=== PATIENT | male | born 1955 | race Caucasian/White ===

== ENCOUNTER 2021-07-19 13:27 | Inpatient (IN) | payer MEDICARE, OTHER ==
[~2021-07-19] VITALS: Ht 170.2 cm; Wt 81.7 kg
[2021-07-19 14:33] LABS: BASOPHILS ABSOLUTE AUTO 0.03 K/mm3 (0.00-0.23); BASOPHILS PERCENT AUTO 0 % (0-2); EOSINOPHILS ABSOLUTE AUTO 0.07 K/mm3 (0.00-0.68); EOSINOPHILS PERCENT AUTO 1 % (0-6); Hematocrit 43.7 % (37.0-53.0); Hemoglobin 15.1 g/dL (13.5-17.5); IMMATURE GRAN ABSOLUTE AUTO 0.05 K/mm3 (0.00-0.10); IMMATURE GRAN PERCENT AUTO 0 % (0-1); LYMPHOCYTES ABSOLUTE AUTO 1.26 K/mm3 (0.84-5.20); LYMPHOCYTES PERCENT AUTO 9 % (21-46); MONOCYTES ABSOLUTE AUTO 1.29 K/mm3 (0.16-1.47); MONOCYTES PERCENT AUTO 9 % (4-13); Mean Corpuscular HGB 30.1 pg (26.0-34.0); Mean Corpuscular HGB Conc 34.6 g/dL (31.5-36.5); Mean Corpuscular Volume 87 fL (80-100); Mean Platelet Volume 9.7 fL (9.1-12.4); NEUTROPHILS PERCENT AUTO 81 % (41-73); Platelet Count 303 K/mm3 (150-400); RDW Coefficient Variation 13.7 % (11.7-14.2); RDW Standard Deviation 43.9 fL (35.1-46.3); Red Blood Cell Count 5.01 M/mm3 (4.30-5.90)
[2021-07-19] MEDS ORDERED: AMLO10 PO (14:52)
[2021-07-19] MEDS ORDERED: Budeprion Xl300 MG PO (14:53)
[2021-07-19] MEDS ORDERED: FOLI1 PO (14:54)
[2021-07-19 14:55] LABS: Albumin, Blood 4.8 g/dL (3.4-5.0); Albumin/Globulin Ratio 1.3 (0.8-1.8); Bilirubin, Total 0.8 mg/dL (0.1-1.0); Bun/Creatinine Ratio 11.2 (12.0-20.0); Creatinine, Blood 1.61 mg/dL (0.60-1.20); Globulin, Blood 3.8 g/dL (2.2-4.0); Potassium, Blood 4.2 mmol/L (3.5-5.5); Total Protein, Blood 8.6 g/dL (6.4-8.2)
[2021-07-19] MEDS ORDERED: MAGNESIUM OXID400 M1 PO (14:55)
[2021-07-19] MEDS ORDERED: Prinivil10 MG PO (14:55)
[2021-07-19] MEDS ORDERED: OMEP20ER PO (14:56)
[2021-07-19] MEDS ORDERED: Toprol Xl50 MG PO (14:56)
[2021-07-19] MEDS ORDERED: Vitamin B-121000 MCG PO (14:57)
[2021-07-19] MEDS ORDERED: VITAMIN B-1100 M1 PO (14:57)
[2021-07-19] MEDS ORDERED: GABA300 PO (14:57)
[2021-07-19] MEDS ORDERED: CREON DR 12,001 EACH PO (14:59)
[2021-07-19] MEDS ORDERED: ALPR.5 PO (15:00)
[2021-07-19] MEDS ORDERED: Acetaminophen325 M1 PO (15:00)
[2021-07-19] MEDS ORDERED: ONDA4 PO (15:01)
[2021-07-19 16:58] LABS: CHOL/HDL RATIO 4.2; Cholesterol 204 mg/dL (50-200); HDL Cholesterol 49 mg/dL (>39); LDL/HDL RATIO 2.5; Low Density Lipoprotein Chol 123 mg/dL (0-110); Triglycerides 162 mg/dL (30-160); Very Low Density Lipoprot Chol 32 mg/dL (6-32)
--- NOTE | 2021-07-19 18:11 | NUR ---
ADMIT TO MEDICAL FLOOR 66YR M ADMITTED TO MEDICAL FLOOR AT 1730 WITH PANCREATITIS. REPORT RECIEVED FROM UZAIR MANCUSO IN ED. PT ARRIVED VIA GURNEY AND TRANSFERRED IND TO BED. HE IS A&O AND ABLE TO ANSWER QUESTIONS APPROPRIATELY. ADMISSION SCREENING PARTIALLY COMPLETED DUE TO PT'S DISCOMFORT R/T NAUSEA AND WRETCHING. PT MEDICATED WITH 4MG IV ZOFRAN AND 25MG FENTANYL. PT ORIENTED TO ROOM, CALL LIGHT SYSTEM AND PHONE. ASSISTED PT WITH CALLING HIS SISTER TO UPDATE ABOUT HOSPITAL ADMISSION. PT DID NOT GET ANY RELIEF AFTER MEDICATION. CALL OUT TO MD FOR FURTHER ORDERS.
[2021-07-19 19:30] LABS: SARS-Cov-2 (COVID-19) PCR, MMC NEGATIVE (NEGATIVE)
--- NOTE | 2021-07-20 04:14 | NUR ---
SUMMARY: PT A/OX3-4 BUT IS MILDLY FORGETFULL W/BED ALARM ON FOR POSSIBLE FALL RISK. HE'S ANSWERED SPECIFIC Q'S APPROPRIATELY BUT OCCASSIONAL CONFUSED SPEECH OBSERVED, REMINDERS PROVIDED PRN. PT RECIEVED ZOFRAN, FENTANYL AND ATIVAN PRN ON DAY SHIFT BUT HASN'T REQUIRED ANY PRN MEDS SINCE. HE'S DENIED NAUSEA, ABDO PAIN, ANXIETY AND AGGITATION AND NO FURTHER N/V OR RETCHING OBSERVED. CIWAS ARE 1 BUT ONLY FOR SLIGHT CONFUSION TO DATE, LIKELY ATIVAN INDUCED. HE'S BEEN NPO EXCEPT MEDS/ICE AND REPORTS FEELING "SO MUCH BETTER". HE'S BEEN PLEASANT AND COOPERATIVE W/CARE AND SLEPT MAJORITY OF SHIFT. NS INFUSES AT 150 ML/HR AND CAN BE SL AFTER THIS BAG. NO ACUTE CHANGES, VSS/AFEBRILE.
[2021-07-20 04:50] LABS: BASOPHILS ABSOLUTE AUTO 0.01 K/mm3 (0.00-0.23); BASOPHILS PERCENT AUTO 0 % (0-2); EOSINOPHILS ABSOLUTE AUTO 0.12 K/mm3 (0.00-0.68); EOSINOPHILS PERCENT AUTO 2 % (0-6); Hematocrit 37.4 % (37.0-53.0); Hemoglobin 12.5 g/dL (13.5-17.5); IMMATURE GRAN ABSOLUTE AUTO 0.02 K/mm3 (0.00-0.10); IMMATURE GRAN PERCENT AUTO 0 % (0-1); LYMPHOCYTES PERCENT AUTO 22 % (21-46); MONOCYTES ABSOLUTE AUTO 1.21 K/mm3 (0.16-1.47); MONOCYTES PERCENT AUTO 17 % (4-13); Mean Corpuscular HGB 30.2 pg (26.0-34.0); Mean Corpuscular HGB Conc 33.4 g/dL (31.5-36.5); Mean Corpuscular Volume 90 fL (80-100); Mean Platelet Volume 9.7 fL (9.1-12.4); NEUTROPHILS ABSOLUTE AUTO 4.36 K/mm3 (1.96-9.15); NEUTROPHILS PERCENT AUTO 60 % (41-73); Platelet Count 168 K/mm3 (150-400); Red Blood Cell Count 4.14 M/mm3 (4.30-5.90); White Blood Cell Count 7.32 K/mm3 (4.00-11.30)
[2021-07-20 05:15] LABS: Alanine Aminotransfer (ALT/SGP 20 U/L (12-78); Albumin, Blood 3.7 g/dL (3.4-5.0); Albumin/Globulin Ratio 1.2 (0.8-1.8); Alk Phos 80 U/L (50-136); Anion Gap 3 mmol/L (6-16); Aspartate Aminotrans (AST/SGOT 17 U/L (12-37); Bilirubin, Total 0.4 mg/dL (0.1-1.0); Blood Urea Nitrogen 19 mg/dL (8-24); CO2, Blood 28 mmol/L (21-32); Chloride, Blood 110 mmol/L (98-108); Creatinine, Blood 1.12 mg/dL (0.60-1.20); Globulin, Blood 3.2 g/dL (2.2-4.0); Glomerular Filtration Rate >60 (60-); Glucose, Blood 95 mg/dL (70-99); Potassium, Blood 4.4 mmol/L (3.5-5.5); Sodium, Blood 141 mmol/L (136-145); Total Protein, Blood 6.9 g/dL (6.4-8.2)
[2021-07-20 05:16] LABS: Calcium, Blood 8.3 mg/dL (8.5-10.1)
--- NOTE | 2021-07-20 19:32 | NUR ---
SHIFT SUMMARY: NO ACUTE EVENTS TO REPORT THIS SHIFT. PT A&O; CALM AND COOPERATIVE WITH CARE. DIET ADVANCED TO FULL LIQUID @ DINNER; PT TOLERATING WELL. CIWA Q4; ASSESSED AT 1 T/O SHIFT. REPORT GIVEN TO ONCOMING RN.
--- NOTE | 2021-07-21 04:44 | NUR ---
SUMMARY NO NEW ISSUES NOTED. PT HAS RESTED/ SLEPT T/O SHIFT. PT CURRENTLY SLEEPING IN NO DISTRESS. CIWA UNREMARKABLE. CALL LIGHT IN REACH.
[2021-07-21] MEDS ORDERED: AMLO10 PO (09:46)
--- NOTE | 2021-07-21 10:33 | NUR ---
PATIENT DISCHARGE: PATIENT DISCHARGED TO HOME THIS SHIFT. MEDICATION RECONCILIATION COMPLETED; MED LIST FAXED TO [facility]. DISCHARGE EDUCATION COMPLETED WITH PATIENT. PATIENT TRANSPORTED TO EXIT BY [facility] STA[facility] WITH WHEELCHAIR AT 1032. PATIENT DEPARTED [facility] VIA PRIVATE AUTO.
== END 2021-07-21 10:32 | disposition home or self-care (01) | DRG 439 ==
LOC: ER 13:27 → MEDS 15:58
PROVIDERS: Family Medicine; ADMIT Hospitalist
PROC: HZ2ZZZZ Detoxification Services for Substance Abuse Treatment (ICD-10-PCS; principal; 2021-07-19)
DX: K85.20 Alcohol induced acute pancreatitis without necrosis or infection (principal); N17.9 Acute kidney failure, unspecified; Z20.822 Contact with and (suspected) exposure to COVID-19; I10 Essential (primary) hypertension; F17.210 Nicotine dependence, cigarettes, uncomplicated; K21.9 Gastro-esophageal reflux disease without esophagitis; F41.9 Anxiety disorder, unspecified; F10.20 Alcohol dependence, uncomplicated; Z71.41 Alcohol abuse counseling and surveillance of alcoholic; Z79.899 Other long term (current) drug therapy
CPT/HCPCS: 36415; 74177; 80053; 80061; 83615; 83690; 84145; 85025; 93005; 93010; 94762; 96365-59; 96375; 99285-25; A9270; G0480; J1644; J1885; J2060; J2405; J2560; J3010; J7030; J7120; Q9967; U0004

== ENCOUNTER 2021-08-23 20:45 | Inpatient (IN) | payer MEDICARE, OTHER ==
[~2021-08-23] VITALS: Ht 170.2 cm; Wt 78.5 kg
[~2021-08-23 20:45] MED LIST: ALPR.5 PO; AMLO10 PO; Acetaminophen325 M1 PO; Budeprion Xl300 MG PO; CREON DR 12,001 EACH PO; FOLI1 PO; GABA300 PO; MAGNESIUM OXID400 M1 PO; OMEP20ER PO; ONDA4 PO; ONDA4ODT MM; PROM25 PO; Prinivil10 MG PO; Toprol Xl50 MG PO; VITAMIN B-1100 M1 PO; Vitamin B-121000 MCG PO
[2021-08-23 21:39] LABS: BASOPHILS ABSOLUTE AUTO 0.01 K/mm3 (0.00-0.23); BASOPHILS PERCENT AUTO 0 % (0-2); EOSINOPHILS ABSOLUTE AUTO 0.14 K/mm3 (0.00-0.68); EOSINOPHILS PERCENT AUTO 1 % (0-6); Hematocrit 39.4 % (37.0-53.0); Hemoglobin 13.6 g/dL (13.5-17.5); IMMATURE GRAN ABSOLUTE AUTO 0.04 K/mm3 (0.00-0.10); IMMATURE GRAN PERCENT AUTO 0 % (0-1); LYMPHOCYTES ABSOLUTE AUTO 1.43 K/mm3 (0.84-5.20); LYMPHOCYTES PERCENT AUTO 12 % (21-46); MONOCYTES ABSOLUTE AUTO 1.91 K/mm3 (0.16-1.47); MONOCYTES PERCENT AUTO 17 % (4-13); Mean Corpuscular HGB 30.4 pg (26.0-34.0); Mean Corpuscular HGB Conc 34.5 g/dL (31.5-36.5); Mean Corpuscular Volume 88 fL (80-100); Mean Platelet Volume 9.8 fL (9.1-12.4); NEUTROPHILS ABSOLUTE AUTO 8.08 K/mm3 (1.96-9.15); NEUTROPHILS PERCENT AUTO 70 % (41-73); Platelet Count 204 K/mm3 (150-400); RDW Coefficient Variation 13.2 % (11.7-14.2); RDW Standard Deviation 42.8 fL (35.1-46.3); Red Blood Cell Count 4.47 M/mm3 (4.30-5.90); White Blood Cell Count 11.61 K/mm3 (4.00-11.30)
[2021-08-23 22:00] LABS: Alanine Aminotransfer (ALT/SGP 33 U/L (12-78); Albumin, Blood 3.8 g/dL (3.4-5.0); Alk Phos 107 U/L (50-136); Anion Gap 8 mmol/L (6-16); Aspartate Aminotrans (AST/SGOT 26 U/L (12-37); Bilirubin, Total 0.8 mg/dL (0.1-1.0); Blood Urea Nitrogen 11 mg/dL (8-24); Bun/Creatinine Ratio 14.4 (12.0-20.0); CO2, Blood 24 mmol/L (21-32); Calcium, Blood 9.4 mg/dL (8.5-10.1); Chloride, Blood 103 mmol/L (98-108); Creatinine, Blood 0.76 mg/dL (0.60-1.20); Ethanol (Alcohol), Blood, Med <3 mg/dL; Globulin, Blood 3.9 g/dL (2.2-4.0); Glomerular Filtration Rate >60 (60-); Glucose, Blood 110 mg/dL (70-99); Sodium, Blood 135 mmol/L (136-145); Total Protein, Blood 7.7 g/dL (6.4-8.2)
--- NOTE | 2021-08-24 01:41 | NUR ---
ADMISSION NOTE: RECEIVED PT FROM ER AAO. HE C/O OF SEVERE ABDOMINAL PAIN. ABD SOFT NON-TENDER. ORIENTED PT TO CALL LIGHT AND SURROUNDINGS. MEDS GIVEN PER MAR. MEDICATED FOR PAIN WITH GOOD EFFECT. IVF PATENTLY INFUSING. CALL LIGHT WITHIN REACH.
--- NOTE | 2021-08-24 03:33 | NUR ---
PT SLEPT WITHOUT DISTRESS. HE DENIES PAIN. IVF INFUSING. CALL LIGHT WITHIN REACH. SAFETY MEASURES MAINTAINED. NO EVENT DURING THE NIGHT.
--- NOTE | 2021-08-24 07:40 | NUR ---
DISCHARGE SUMMARY PATIENT LEFT AMA. RISKS AND BENEFITS OF LEAVING AMA DISCUSSED WITH PATIENT. PATIENT STATES HE IS STILL GOING TO LEAVE. DR CONTACTED AND IN THE ROOM TO DISCUSS PATIENT'S CURRENT SITUATION. PATIENT CONTINUES TO STATE HE IS GOING TO LEAVE. IV REMOVED PRIOR TO DISCHARGE. PATIENT MAKING GRUNTING SOUNDS DUE TO PAIN HE AMBULATES THROUGH THE ETIENNE. PATIENT ESCORTED TO THE PHARMACY TO POST HOLE DIGGING MACHINE OPERATOR MEDICATIONS THAT WERE BEING HELD, THEN TO THE HOSPITAL ENTRANCE.
== END 2021-08-24 07:35 | disposition left against medical advice (07) | DRG 439 ==
LOC: ER 20:45 → MEDS 08-24 00:09
PROVIDERS: Emergency Medicine; ADMIT Internal Medicine
DX: K85.20 Alcohol induced acute pancreatitis without necrosis or infection (principal); E87.1 Hypo-osmolality and hyponatremia; I10 Essential (primary) hypertension; K21.9 Gastro-esophageal reflux disease without esophagitis; F32.9 Major depressive disorder, single episode, unspecified; F41.9 Anxiety disorder, unspecified; Z88.8 Allergy status to other drugs, medicaments and biological substances; F10.10 Alcohol abuse, uncomplicated; Z23 Encounter for immunization; Z96.651 Presence of right artificial knee joint; Z79.899 Other long term (current) drug therapy; Z90.49 Acquired absence of other specified parts of digestive tract
CPT/HCPCS: 76705; 80053; 83690; 85025; 96374; 96375; 99285-25; G0480; J2270; J2405; J3010; J7030

== ENCOUNTER 2021-09-02 04:36 | Inpatient (IN) | payer MEDICARE, OTHER ==
[~2021-09-02] VITALS: Ht 170.2 cm; Wt 77.1 kg
[2021-09-02 05:19] LABS: BASOPHILS ABSOLUTE AUTO 0.02 K/mm3 (0.00-0.23); BASOPHILS PERCENT AUTO 0 % (0-2); EOSINOPHILS ABSOLUTE AUTO 0.18 K/mm3 (0.00-0.68); EOSINOPHILS PERCENT AUTO 2 % (0-6); Hemoglobin 13.9 g/dL (13.5-17.5); IMMATURE GRAN ABSOLUTE AUTO 0.03 K/mm3 (0.00-0.10); IMMATURE GRAN PERCENT AUTO 0 % (0-1); LYMPHOCYTES ABSOLUTE AUTO 1.61 K/mm3 (0.84-5.20); LYMPHOCYTES PERCENT AUTO 15 % (21-46); MONOCYTES ABSOLUTE AUTO 1.73 K/mm3 (0.16-1.47); MONOCYTES PERCENT AUTO 16 % (4-13); Mean Corpuscular HGB 30.2 pg (26.0-34.0); Mean Corpuscular HGB Conc 33.1 g/dL (31.5-36.5); Mean Corpuscular Volume 91 fL (80-100); Mean Platelet Volume 9.7 fL (9.1-12.4); NEUTROPHILS ABSOLUTE AUTO 7.46 K/mm3 (1.96-9.15); NEUTROPHILS PERCENT AUTO 68 % (41-73); Platelet Count 283 K/mm3 (150-400); RDW Coefficient Variation 14.1 % (11.7-14.2); RDW Standard Deviation 47.2 fL (35.1-46.3); Red Blood Cell Count 4.61 M/mm3 (4.30-5.90); White Blood Cell Count 11.03 K/mm3 (4.00-11.30)
[2021-09-02 05:36] LABS: Alanine Aminotransfer (ALT/SGP 322 U/L (12-78); Albumin, Blood 3.8 g/dL (3.4-5.0); Alk Phos 353 U/L (50-136); Anion Gap 5 mmol/L (6-16); Aspartate Aminotrans (AST/SGOT 231 U/L (12-37); Bilirubin, Total 1.6 mg/dL (0.1-1.0); Blood Urea Nitrogen 8 mg/dL (8-24); Bun/Creatinine Ratio 10.4 (12.0-20.0); CO2, Blood 27 mmol/L (21-32); Calcium, Blood 9.8 mg/dL (8.5-10.1); Chloride, Blood 105 mmol/L (98-108); Creatinine, Blood 0.77 mg/dL (0.60-1.20); Globulin, Blood 3.9 g/dL (2.2-4.0); Glomerular Filtration Rate >60 (60-); Glucose, Blood 139 mg/dL (70-99); Potassium, Blood 4.2 mmol/L (3.5-5.5); Sodium, Blood 137 mmol/L (136-145); Total Protein, Blood 7.7 g/dL (6.4-8.2)
[2021-09-02 09:56] LABS: SARS-Cov-2 (COVID-19) PCR, MMC NEGATIVE (NEGATIVE)
--- NOTE | 2021-09-02 18:31 | NUR ---
PT IS ALERT AND ORIENTED X 4. HE DENIES PAIN OR DISCOMFORT SINCE ADMISSION TO FLOOR. HE IS COOPERATIVE. HE IS TOLERATING CLEAR LIQ DIET. NPO AT MIDNIGHT/PT IS AWARE. 20G HL PLACED IN RIGHT FOREARM FOR IV FLUIDS (LR AT 100ML/HR). HE DOES NOT APPEAR TO BE IN ACUTE DISTRESS. HE IS RESTING QUIETLY IN ROOM.
[2021-09-02] MEDS ORDERED: CLON.5 PO (20:29)
[2021-09-02] MEDS ORDERED: Naltrexone HCl50 MG PO (20:29)
[2021-09-03 05:53] LABS: BASOPHILS ABSOLUTE AUTO 0.01 K/mm3 (0.00-0.23); BASOPHILS PERCENT AUTO 0 % (0-2); EOSINOPHILS ABSOLUTE AUTO 0.19 K/mm3 (0.00-0.68); EOSINOPHILS PERCENT AUTO 3 % (0-6); Hematocrit 39.8 % (37.0-53.0); Hemoglobin 13.2 g/dL (13.5-17.5); IMMATURE GRAN ABSOLUTE AUTO 0.02 K/mm3 (0.00-0.10); IMMATURE GRAN PERCENT AUTO 0 % (0-1); LYMPHOCYTES PERCENT AUTO 27 % (21-46); MONOCYTES ABSOLUTE AUTO 1.33 K/mm3 (0.16-1.47); MONOCYTES PERCENT AUTO 19 % (4-13); Mean Corpuscular HGB 29.8 pg (26.0-34.0); Mean Corpuscular HGB Conc 33.2 g/dL (31.5-36.5); Mean Corpuscular Volume 90 fL (80-100); Mean Platelet Volume 10.2 fL (9.1-12.4); NEUTROPHILS ABSOLUTE AUTO 3.67 K/mm3 (1.96-9.15); NEUTROPHILS PERCENT AUTO 52 % (41-73); Platelet Count 222 K/mm3 (150-400); Red Blood Cell Count 4.43 M/mm3 (4.30-5.90); White Blood Cell Count 7.12 K/mm3 (4.00-11.30)
[2021-09-03 06:11] LABS: Alanine Aminotransfer (ALT/SGP 207 U/L (12-78); Albumin, Blood 3.3 g/dL (3.4-5.0); Albumin/Globulin Ratio 0.9 (0.8-1.8); Alk Phos 277 U/L (50-136); Amylase, Blood 56 U/L (25-115); Anion Gap 4 mmol/L (6-16); Aspartate Aminotrans (AST/SGOT 73 U/L (12-37); Bilirubin, Total 0.7 mg/dL (0.1-1.0); Blood Urea Nitrogen 8 mg/dL (8-24); Bun/Creatinine Ratio 11.6 (12.0-20.0); CO2, Blood 25 mmol/L (21-32); Calcium, Blood 9.7 mg/dL (8.5-10.1); Chloride, Blood 105 mmol/L (98-108); Creatinine, Blood 0.69 mg/dL (0.60-1.20); Globulin, Blood 3.7 g/dL (2.2-4.0); Glomerular Filtration Rate >60 (60-); Glucose, Blood 100 mg/dL (70-99); Magnesium, Blood 1.9 mg/dL (1.6-2.4); Phosphorus, Blood 3.3 mg/dL (2.5-4.9); Potassium, Blood 4.3 mmol/L (3.5-5.5); Sodium, Blood 134 mmol/L (136-145)
--- NOTE | 2021-09-03 07:23 | NUR ---
PATIENT IS ALERT AND ORIENTED X4. PATIENT REMAINS NPO AFTER MIDNIGHT. PATIENT DENIES PAIN OR ANY DISCOMFORT. PATIENT'S VITAL SIGNS WNL. PATIENT CONTINUES ON LACTATED RINGER IV. PATIENT DENIES SOB, CHEST PAIN OR ANY ACUTE EVENT. WILL CONTINUE TO MONITOR.
--- NOTE | 2021-09-03 17:20 | NUR ---
66 YOM ADMITTED WITH ACUTE ON CHRONIC PANCREATITIS. PT. SCHEDULED FOR [facility] TOMORROW (DR. BALTAZAR). PT. LIVING ALONE PRIOR TO ADMIT. ABLE TO PERFORM ADLS INDEPENDENTLY. LIVES IN MOTOR HOME WITH 3 STEPS TO ENTRY. FAMILY SUPPORT WITH BROTHER AND SISTER LIVING IN THE AREA. PT. USES [facility]. RECENTLY DISCHARGED FROM [facility] DUE TO BEHAVIOR AND NON-COMPLIANCE. WE WILL CONTINUE TO PROVIDE CARE EMERGENT CARE AND ROUTINE MEDICATION REFILLS FOR 30 DAYS WHILE PT. ESTABLISHES WITH A NEW PCP. ANTICIPATE NEEDS AT TIME OF DISCHARGE TO INCLUDE: F/U WITH DR. BALTAZAR, HOSPITAL F/U WITH [facility], ASSISTANCE WITH LOCATING AN ALTERNATIVE PCP.
--- NOTE | 2021-09-03 18:41 | NUR ---
PT IS ALERT AND ORIENTED X 4. HE DENIES PAIN, NAUSEA, OR DISCOMFORT. HE ATTEMPTED TO LEAVE AMA. HE STATED HE IS JUST LYING HERE WITHOUT EATING AND NO ONE HAS INFORMED HIM IF HE WILL HAVE SURGERY OR NOT. DISCUSSION WITH PT ABOUT BENEFITS OF REMAINING IN HOSP AND ASKED HIM TO ALLOW ME TO SPEAK WITH PHYSICIAN. dR. GASTELUM WAS NOTIFIED AND STATED SURGEON WOULD BE TODAY AND CHOLECYSTECTOMY WAS PLANNED FOR TOMORROW. THIS WAS COMMUNICATED TO THE PT WHO DECIDED TO REMAIN. SURGEON STOPPED BY APPROX 2PM TO SPEAK WITH PT. HE IS TOLERATING CLEAR LIQ DIET. HE IS INDEPENDENT WITH ACTIVITIES. UNEVENTFUL SHIFT. TELE-NSR 'S
--- NOTE | 2021-09-04 04:03 | NUR ---
SUMMARY PT HAD NO ISSUES OR COMPLAINTS. PT HAS BEEN NPO SINCE MIDNIGHT. PT HAS BEEN VOIDING FREQUENTLY DURING THE SHIFT. PT CURRENTLY SLEEPING AND BREATHING EASY. CALL LIGHT IN REACH.
[2021-09-04 05:38] LABS: BASOPHILS ABSOLUTE AUTO 0.01 K/mm3 (0.00-0.23); BASOPHILS PERCENT AUTO 0 % (0-2); EOSINOPHILS ABSOLUTE AUTO 0.21 K/mm3 (0.00-0.68); EOSINOPHILS PERCENT AUTO 3 % (0-6); Hematocrit 40.4 % (37.0-53.0); Hemoglobin 13.3 g/dL (13.5-17.5); IMMATURE GRAN ABSOLUTE AUTO 0.02 K/mm3 (0.00-0.10); IMMATURE GRAN PERCENT AUTO 0 % (0-1); LYMPHOCYTES ABSOLUTE AUTO 1.95 K/mm3 (0.84-5.20); LYMPHOCYTES PERCENT AUTO 28 % (21-46); MONOCYTES ABSOLUTE AUTO 1.21 K/mm3 (0.16-1.47); MONOCYTES PERCENT AUTO 17 % (4-13); Mean Corpuscular HGB 29.8 pg (26.0-34.0); Mean Corpuscular HGB Conc 32.9 g/dL (31.5-36.5); Mean Corpuscular Volume 90 fL (80-100); NEUTROPHILS ABSOLUTE AUTO 3.58 K/mm3 (1.96-9.15); NEUTROPHILS PERCENT AUTO 51 % (41-73); Platelet Count 229 K/mm3 (150-400); RDW Coefficient Variation 13.8 % (11.7-14.2); Red Blood Cell Count 4.47 M/mm3 (4.30-5.90); White Blood Cell Count 6.98 K/mm3 (4.00-11.30)
[2021-09-04 06:13] LABS: Alanine Aminotransfer (ALT/SGP 151 U/L (12-78); Albumin, Blood 3.2 g/dL (3.4-5.0); Albumin/Globulin Ratio 0.9 (0.8-1.8); Alk Phos 235 U/L (50-136); Anion Gap 2 mmol/L (6-16); Aspartate Aminotrans (AST/SGOT 36 U/L (12-37); Bilirubin, Total 0.7 mg/dL (0.1-1.0); Blood Urea Nitrogen 8 mg/dL (8-24); CO2, Blood 27 mmol/L (21-32); Calcium, Blood 9.5 mg/dL (8.5-10.1); Chloride, Blood 106 mmol/L (98-108); Creatinine, Blood 0.73 mg/dL (0.60-1.20); Globulin, Blood 3.6 g/dL (2.2-4.0); Glomerular Filtration Rate >60 (60-); Glucose, Blood 100 mg/dL (70-99); Potassium, Blood 4.2 mmol/L (3.5-5.5); Sodium, Blood 135 mmol/L (136-145); Total Protein, Blood 6.8 g/dL (6.4-8.2)
--- NOTE | 2021-09-04 18:46 | NUR ---
PATIENT IS ALERT AND ORIENTED WITH INTERMITTENT CONFUSION. ON RA. HE HAD A [facility] TODAY. ONCE HE GOT BACK TO MEDICAL FLOOR HE WAS CRYING OUT IN PAIN, MEDICATED PER EMAR. HIS PAIN HAS BEEN TOLERABLE SINCE AND HE HAS BEEN ABLE TO REST. TOLERATED DINNER WELL. WILL CONTINUE TO MONITOR
--- NOTE | 2021-09-05 04:05 | NUR ---
SUMMARY PT PAIN MANAGED WELL. PT HAS BEEN SLEEPING T/OUT SHIFT. PT HAS BEEN GETTING UP TO VOID W/OUT ISSUE. PT CURRENTLY SLEEPING IN NO DISTRESS. CALL LIGHT IN REACH.
[2021-09-05] MEDS ORDERED: MIRALAX17 GM PO (13:45)
--- NOTE | 2021-09-05 16:01 | NUR ---
PT IS A&O, SITTING UP TO EOB AT START OF SHIFT. PT ADMITTED FOR PANCREATITIS, HAVING LAB [facility] YESTERDAY. PT DOING WELL. DR BALTAZAR IN TO SEE PT, CLEARING HIM FOR D/C. DR MCCULLOUGH IN LATER, DISCUSSED PLAN OF CARE. PT WANTING TO GO HOME TODAY. D/C ORDERS PLACED. PT INDEPENDENT IN AND OUT TO [place]. MEDICATED X1 FOR C/O ABD TENDERNESS AT START OF SHIFT. NO FURTHER C/O. D/C INSTRUCTIONS REVIEWED WITH PT; VERBALIZED UNDERSTANDING. MEDS FAXED TO [facility], PER PT REQUEST. PT ASSISTED OUT VIA W/C.
== END 2021-09-05 14:03 | disposition home or self-care (01) | DRG 418 ==
LOC: ER 04:36 → MEDS 08:18 → ER 09:54 → MEDS 10:14
PROVIDERS: Emergency Medicine; Student in an Organized Health Care Education/Training Program; Surgery; ADMIT Hospitalist
PROC: HZ2ZZZZ Detoxification Services for Substance Abuse Treatment (ICD-10-PCS; 2021-09-02)
PROC: BF141ZZ Fluoroscopy of Gallbladder, Bile Ducts and Pancreatic Ducts using Low Osmolar Contrast (ICD-10-PCS; 2021-09-04)
PROC: 0FT44ZZ Resection of Gallbladder, Percutaneous Endoscopic Approach (ICD-10-PCS; principal; 2021-09-04 09:30)
DX: K85.10 Biliary acute pancreatitis without necrosis or infection (principal); K86.3 Pseudocyst of pancreas; F11.20 Opioid dependence, uncomplicated; Z20.822 Contact with and (suspected) exposure to COVID-19; F17.210 Nicotine dependence, cigarettes, uncomplicated; F10.10 Alcohol abuse, uncomplicated; I10 Essential (primary) hypertension; Z96.651 Presence of right artificial knee joint; F32.A Depression, unspecified; F41.9 Anxiety disorder, unspecified; K21.9 Gastro-esophageal reflux disease without esophagitis; G89.4 Chronic pain syndrome; Z71.6 Tobacco abuse counseling; Z71.41 Alcohol abuse counseling and surveillance of alcoholic; Z87.19 Personal history of other diseases of the digestive system; Z88.5 Allergy status to narcotic agent; Z88.8 Allergy status to other drugs, medicaments and biological substances; Z79.899 Other long term (current) drug therapy
CPT/HCPCS: 36415; 74181; 74300; 76705; 80053; 82150; 83690; 83735; 84100; 85025; 85651; 86140; 96374; 99285-25; A9270; C1729; J0690; J1100; J1650; J1790; J2250; J2370; J2405; J2704; J3010; J7120; U0004

== ENCOUNTER 2021-09-10 15:24 | Inpatient (IN) | payer MEDICARE, OTHER ==
[~2021-09-10] VITALS: Ht 177.8 cm; Wt 73.2 kg
[~2021-09-10 15:24] MED LIST changes: +CLON.5 PO; +MIRALAX17 GM PO; +Naltrexone HCl50 MG PO
[2021-09-10 15:59] LABS: BASOPHILS ABSOLUTE AUTO 0.02 K/mm3 (0.00-0.23); BASOPHILS PERCENT AUTO 0 % (0-2); EOSINOPHILS ABSOLUTE AUTO 0.08 K/mm3 (0.00-0.68); EOSINOPHILS PERCENT AUTO 1 % (0-6); Hematocrit 37.8 % (37.0-53.0); Hemoglobin 12.7 g/dL (13.5-17.5); IMMATURE GRAN ABSOLUTE AUTO 0.08 K/mm3 (0.00-0.10); IMMATURE GRAN PERCENT AUTO 1 % (0-1); LYMPHOCYTES ABSOLUTE AUTO 1.07 K/mm3 (0.84-5.20); LYMPHOCYTES PERCENT AUTO 8 % (21-46); MONOCYTES ABSOLUTE AUTO 1.73 K/mm3 (0.16-1.47); MONOCYTES PERCENT AUTO 13 % (4-13); Mean Corpuscular HGB 30.5 pg (26.0-34.0); Mean Corpuscular HGB Conc 33.6 g/dL (31.5-36.5); Mean Corpuscular Volume 91 fL (80-100); Mean Platelet Volume 9.9 fL (9.1-12.4); NEUTROPHILS ABSOLUTE AUTO 10.27 K/mm3 (1.96-9.15); NEUTROPHILS PERCENT AUTO 77 % (41-73); Platelet Count 317 K/mm3 (150-400); RDW Coefficient Variation 13.4 % (11.7-14.2); RDW Standard Deviation 44.2 fL (35.1-46.3); Red Blood Cell Count 4.16 M/mm3 (4.30-5.90); White Blood Cell Count 13.25 K/mm3 (4.00-11.30)
[2021-09-10 16:15] LABS: Alanine Aminotransfer (ALT/SGP 45 U/L (12-78); Albumin, Blood 3.1 g/dL (3.4-5.0); Albumin/Globulin Ratio 0.7 (0.8-1.8); Alk Phos 163 U/L (50-136); Anion Gap 8 mmol/L (6-16); Aspartate Aminotrans (AST/SGOT 23 U/L (12-37); Bilirubin, Total 0.7 mg/dL (0.1-1.0); Blood Urea Nitrogen 9 mg/dL (8-24); Bun/Creatinine Ratio 11.9 (12.0-20.0); CO2, Blood 26 mmol/L (21-32); Calcium, Blood 9.7 mg/dL (8.5-10.1); Chloride, Blood 98 mmol/L (98-108); Creatinine, Blood 0.76 mg/dL (0.60-1.20); Globulin, Blood 4.6 g/dL (2.2-4.0); Glomerular Filtration Rate >60 (60-); Glucose, Blood 110 mg/dL (70-99); Potassium, Blood 4.2 mmol/L (3.5-5.5); Sodium, Blood 132 mmol/L (136-145); Total Protein, Blood 7.7 g/dL (6.4-8.2)
[2021-09-10 19:05] LABS: SARS-Cov-2 (COVID-19) PCR, MMC NEGATIVE (NEGATIVE)
--- NOTE | 2021-09-11 02:58 | NUR ---
VALIUM: WASTED 5MG/1ML IV VALIUM AT BEDSIDE W/MARY MCCAIN RN.
[2021-09-11 04:30] LABS: BASOPHILS ABSOLUTE AUTO 0.05 K/mm3 (0.00-0.23); BASOPHILS PERCENT AUTO 0 % (0-2); EOSINOPHILS ABSOLUTE AUTO 0.04 K/mm3 (0.00-0.68); EOSINOPHILS PERCENT AUTO 0 % (0-6); Hematocrit 35.5 % (37.0-53.0); IMMATURE GRAN ABSOLUTE AUTO 0.13 K/mm3 (0.00-0.10); IMMATURE GRAN PERCENT AUTO 1 % (0-1); LYMPHOCYTES ABSOLUTE AUTO 0.42 K/mm3 (0.84-5.20); LYMPHOCYTES PERCENT AUTO 2 % (21-46); MONOCYTES ABSOLUTE AUTO 1.41 K/mm3 (0.16-1.47); MONOCYTES PERCENT AUTO 7 % (4-13); Mean Corpuscular HGB 30.5 pg (26.0-34.0); Mean Corpuscular HGB Conc 33.8 g/dL (31.5-36.5); Mean Corpuscular Volume 90 fL (80-100); Mean Platelet Volume 9.6 fL (9.1-12.4); NEUTROPHILS PERCENT AUTO 90 % (41-73); Platelet Count 300 K/mm3 (150-400); RDW Coefficient Variation 13.2 % (11.7-14.2); RDW Standard Deviation 44.3 fL (35.1-46.3); Red Blood Cell Count 3.93 M/mm3 (4.30-5.90); White Blood Cell Count 20.05 K/mm3 (4.00-11.30)
[2021-09-11 04:44] LABS: Anion Gap 4 mmol/L (6-16); Blood Urea Nitrogen 7 mg/dL (8-24); Bun/Creatinine Ratio 10.7 (12.0-20.0); CO2, Blood 29 mmol/L (21-32); Calcium, Blood 8.8 mg/dL (8.5-10.1); Chloride, Blood 100 mmol/L (98-108); Creatinine, Blood 0.66 mg/dL (0.60-1.20); Glomerular Filtration Rate >60 (60-); Glucose, Blood 165 mg/dL (70-99); Potassium, Blood 4.8 mmol/L (3.5-5.5); Sodium, Blood 133 mmol/L (136-145)
--- NOTE | 2021-09-11 08:43 | NUR ---
FENTANYL EXPERIMENTAL MACHINIST INFUSING AT 10 MCG EVERY 8 MIN, CONT INFUSION OF 15 MCG PER HOUR AND 4 HOUR LIMIT OF 300 MCG. ORDERED DOSE IS LIMIT OF 350 MCG PER HOUR BUT EXPERIMENTAL MACHINIST MACHINE ALLOWS MAXIMUM DOSE OF 300 MCG LIMIT
--- NOTE | 2021-09-11 23:52 | NUR ---
CONFUSED PT CONFUSED AND HAS ATTEMPTED TO GET UP WITHOUT ASSISTANCE 4 TIMES IN THE LAST HOUR, PT REORIENTS EASILY BUT APPEARS TO FORGET JUST QUICKLY. WILL CTM
--- NOTE | 2021-09-12 01:47 | NUR ---
CONFUSED 2 PT CONTINUES TO BE CONFUSED/FORGETFUL SETTING OFF BED ALARM REPEATEDLY, STILL ABLE TO REORIENT EASILY BUT PT DOESN'T STAY COMPLIANT FOR LONG, REPEATS QUESTIONS. MOVED TO ROOM 214 HE WAS CAUGHT ALREADY UP AND AWAY FROM HIS BED SEVERAL TIMES AND THIS ROOM IS CLOSER TO THE NURSES DESK.
--- NOTE | 2021-09-12 01:54 | NUR ---
RIOS, URINARY CATHETER RIOS IN PLACE AT SHIFT CHANGE, PER PATIENT REQUEST THIS WAS REMOVED AND PATIENT EDUCATED ON RISKS/BENEFITS OF IT COMING OUT. UNABLE TO FIND RECORD OF ITS INSERTION. 250 ML IN DRAIN BAG AT TIME OF REMOVAL @ 0025 TODAY. PT TOLERATED IT WELL THOUGH HE DOES REPORT SOME PENILE TENDERNESS WHICH WAS IMPROVED AFTER REMOVAL OF RIOS. WILL CTM
--- NOTE | 2021-09-12 01:57 | NUR ---
POST RIOS VOID PT WAS ABLE TO VOID AFTER RIOS WAS REMOVED, UNMEASURED PT INSISTED ON USING THE TOILET TO VOID. WILL CTM
[2021-09-12 04:44] LABS: BASOPHILS ABSOLUTE AUTO 0.02 K/mm3 (0.00-0.23); BASOPHILS PERCENT AUTO 0 % (0-2); EOSINOPHILS ABSOLUTE AUTO 0.07 K/mm3 (0.00-0.68); EOSINOPHILS PERCENT AUTO 1 % (0-6); Hematocrit 34.5 % (37.0-53.0); Hemoglobin 11.3 g/dL (13.5-17.5); IMMATURE GRAN ABSOLUTE AUTO 0.07 K/mm3 (0.00-0.10); IMMATURE GRAN PERCENT AUTO 1 % (0-1); LYMPHOCYTES ABSOLUTE AUTO 1.26 K/mm3 (0.84-5.20); LYMPHOCYTES PERCENT AUTO 11 % (21-46); MONOCYTES ABSOLUTE AUTO 1.53 K/mm3 (0.16-1.47); MONOCYTES PERCENT AUTO 13 % (4-13); Mean Corpuscular HGB 29.4 pg (26.0-34.0); Mean Corpuscular HGB Conc 32.8 g/dL (31.5-36.5); Mean Corpuscular Volume 90 fL (80-100); Mean Platelet Volume 9.3 fL (9.1-12.4); NEUTROPHILS ABSOLUTE AUTO 8.81 K/mm3 (1.96-9.15); NEUTROPHILS PERCENT AUTO 75 % (41-73); Platelet Count 283 K/mm3 (150-400); RDW Coefficient Variation 13.3 % (11.7-14.2); RDW Standard Deviation 44.1 fL (35.1-46.3); Red Blood Cell Count 3.85 M/mm3 (4.30-5.90); White Blood Cell Count 11.76 K/mm3 (4.00-11.30)
[2021-09-12 04:55] LABS: Albumin, Blood 2.3 g/dL (3.4-5.0); Anion Gap 6 mmol/L (6-16); Blood Urea Nitrogen 7 mg/dL (8-24); Bun/Creatinine Ratio 8.8 (12.0-20.0); CO2, Blood 28 mmol/L (21-32); Calcium, Blood 8.9 mg/dL (8.5-10.1); Chloride, Blood 97 mmol/L (98-108); Glomerular Filtration Rate >60 (60-); Glucose, Blood 104 mg/dL (70-99); Magnesium, Blood 1.8 mg/dL (1.6-2.4); Phosphorus, Blood 3.3 mg/dL (2.5-4.9); Sodium, Blood 131 mmol/L (136-145)
--- NOTE | 2021-09-12 16:09 | NUR ---
shift summary: Pt. up to chair with PT today and has ambulated a few times to BR today, steady with only stand by assist. Fentanyl per FREIGHT CAR REPAIRER effective for pain, however noted spasms and increased pain with laughing and with movement at times. Toradol given and pt. verbalize much relief. Taking clear liquids well and denies any nausea. Ostomy pouch intact with very scant amount brown liquid stool.
--- NOTE | 2021-09-12 17:02 | NUR ---
Pt. up in chair for dinner (clr. liquids). States pain is in control, voices no concerns or complaint. Call light in reach. Has been using call light all day appropriately.
--- NOTE | 2021-09-12 22:28 | NUR ---
EDUCATION PT CONFUSED, DOES NOT SEEM TO BE ABLE TO COMPREHEND INSTRUCTIONS MORE THAN SHORT TERM, NEEDS REGULAR REDIRECTION, WILL CTM
--- NOTE | 2021-09-13 01:23 | NUR ---
CONFUSED WHEN ROUNDING TO ADMINISTER MIDNIGHT ABX, PT WAS FOUND IN THE BATHROOM WITH BLOOD SMEARED ON THE FLOOR BETWEEN THE BED AND THE BATHROOM AND THE IV WAS PLACED IN THE TRASHCAN BESIDE THE BED. BLOOD LOSS WAS MINIMAL, APPROX 10-15 ML. PT ABLE TO AMBULATE BACK TO BED c NO SIGNS OR C/O LIGHTHEADEDNESS/DIZZINESS AT THIS TIME. AFTER PATIENT BACK IN BED AND I RETURNED FROM GATHERING IV START SUPPLIES, PT WAS FOUND IN HIS CHAIR WITH HIS GOWN OFF AND SHIRT/PANTS ON. PT REORIENTED TO PLACE AND SITUATION AND WAS WILLING TO GET BACK IN BED SO I COULD REESTABLISH IV ACCESS FOR NEXT ABX DOSE. WET SPOT NOTED ON PATIENTS SHIRT, WITH HIS PERMISSION I LIFTED THE SHIRT UP TO FIND THAT HE HAD REMOVED THE OSTOMY BAD. STOMA APPEARED LARGE/PUFFY/RED, CONFERRED APPEARANCE c PEREZ RN AND REPLACED NEW OSTOMY BAG AND EDUCATED PT ON WHAT IT IS AND WHY IT IS IMPORTANT TO KEEP IT ON. PT APPEARED TO UNDERSTAND AT THE TIME OF INSTRUCTION BUT WILL REINTERATE IT AGAIN D/T PT CONFUSION. WILL CTM PT CONDITION.
--- NOTE | 2021-09-13 04:19 | NUR ---
WANDERING PT WANDERING INSIDE HIS ROOM AND TRIGGERED THE EMERGENCY STAFF ASSIST, PT REORIENTED AND ASSISTED BACK TO BED. PT REMOVED SUCTION COMPONENT OF HIS MINE DRESSING WHICH IS NOT ABLE TO BE REATTACHED, WILL DISCUSS c DAY RN OF POSSIBLE REPLACEMENT OF DRESSING. WILL CHENTE
--- NOTE | 2021-09-13 04:22 | NUR ---
BED ALARM TURNED BACK ON FOR PT SAFETY
[2021-09-13 05:27] LABS: BASOPHILS ABSOLUTE AUTO 0.03 K/mm3 (0.00-0.23); BASOPHILS PERCENT AUTO 0 % (0-2); EOSINOPHILS ABSOLUTE AUTO 0.18 K/mm3 (0.00-0.68); EOSINOPHILS PERCENT AUTO 2 % (0-6); Hematocrit 35.5 % (37.0-53.0); Hemoglobin 11.7 g/dL (13.5-17.5); IMMATURE GRAN ABSOLUTE AUTO 0.07 K/mm3 (0.00-0.10); IMMATURE GRAN PERCENT AUTO 1 % (0-1); LYMPHOCYTES ABSOLUTE AUTO 0.97 K/mm3 (0.84-5.20); LYMPHOCYTES PERCENT AUTO 9 % (21-46); MONOCYTES ABSOLUTE AUTO 1.15 K/mm3 (0.16-1.47); MONOCYTES PERCENT AUTO 11 % (4-13); Mean Corpuscular HGB 29.2 pg (26.0-34.0); Mean Corpuscular Volume 89 fL (80-100); Mean Platelet Volume 9.4 fL (9.1-12.4); NEUTROPHILS ABSOLUTE AUTO 8.27 K/mm3 (1.96-9.15); NEUTROPHILS PERCENT AUTO 77 % (41-73); Platelet Count 297 K/mm3 (150-400); RDW Coefficient Variation 13.2 % (11.7-14.2); RDW Standard Deviation 43.4 fL (35.1-46.3); Red Blood Cell Count 4.01 M/mm3 (4.30-5.90); White Blood Cell Count 10.67 K/mm3 (4.00-11.30)
[2021-09-13 05:55] LABS: Albumin, Blood 2.6 g/dL (3.4-5.0); Anion Gap 8 mmol/L (6-16); Blood Urea Nitrogen 6 mg/dL (8-24); Bun/Creatinine Ratio 8.2 (12.0-20.0); CO2, Blood 26 mmol/L (21-32); Calcium, Blood 9.3 mg/dL (8.5-10.1); Chloride, Blood 98 mmol/L (98-108); Creatinine, Blood 0.73 mg/dL (0.60-1.20); Glomerular Filtration Rate >60 (60-); Glucose, Blood 116 mg/dL (70-99); Phosphorus, Blood 3.2 mg/dL (2.5-4.9); Potassium, Blood 3.5 mmol/L (3.5-5.5); Sodium, Blood 132 mmol/L (136-145)
--- NOTE | 2021-09-13 07:40 | NUR ---
SHIFT SUMMARY PT REMAINS CONFUSED/FORGETFUL, PULLED OUT IV, SET OFF EMERGENCY ALARM IN HIS ROOM, WANDERS, DOESN'T USE CALL LIGHT, REMOVED OSTOMY POUCH. REDIRECTS EASILY BUT FORGETS QUICKLY. NO OTHER EVENTS THIS SHIFT. CALL LIGHT IN REACH, REPORT GIVEN TO DAY RN.
--- NOTE | 2021-09-13 09:24 | NUR ---
Pt. moving about in room this morning getting dressed with chair alarm constantly going off, agitated due to alarm sounding. 1:1 verbal, toradol given for breakthru pain (abdomen). Patient then noted leaving floor and walking out of building. This nurse talk 1:1 and pt. escorted without incident back to room. Patient verbalize his goal, "i want to smoke a cigarette!". Nicotene patch is in place on left arm. After long walk, patient c/o increase abdominal discomfort and Percocet given. Is confused with some paranoid ideation. " they all want to get me, i know what everyone is saying". Can be reasoned with and reminded that he needs to have help with his colostomy. "yes,i do need supplies when i get home". Patient also fixated on having to pay someone to have his Ellis removed "in a dark room that wasnt the hospital". Reassurance given. Reji negative drsg. unattached as pt. has pulled out on noc shift, drsg. intact. Colostomy pouch clean, new and intact with stoma beefy red. At this time patient is resting in chair in his room.
--- NOTE | 2021-09-13 09:48 | NUR ---
Charge nurse notified and is aware of patient exit seeking, confusion and mild agitation. Charge nurse notified Oil Filters Inspector as stated and pt. continues to rest in his chair in room at this time.
--- NOTE | 2021-09-13 12:55 | NUR ---
Pt. attempt to pull out IV, states he does not remember ever getting any IV's. Zosyn infused and iv flushed and rebandaged to prevent patient from pulling. At this time pt. disrobed except for underwear, pull blinds closed and is lying down. States he does not understand where the "voices' are coming from. Television then turned off and pt. verbalize "im going to nap now". Appears disoriented. Reassurance given and assist with covers.
--- NOTE | 2021-09-13 14:09 | NUR ---
PT. EXIT SEEKING AGAIN. DRESSED AND LEAVING ROOM. "I JUST WANNA GO ACROSS THE STREET AND BUY CIGARETTES". EXPLAINED TO PT. WHY THIS IS NOT APPROPRIATE AND CALL FROM SISTER AT THIS TIME, HELPFUL. AFTER CALL PATIENT STATES "ILL JUST WAIT FOR NOW TO HAVE A CIGARETTE". AT THIS TIME PT. STATES PAIN IS A 6 OUT OF 10 AND REQUEST PAIN MED, ONE PERCOCET GIVEN. SITTING UP IN CHAIR. ENCOURAGED TO USE CALL LIGHT FOR ANY FURTHER NEEDS, CONCERNS, COMPLAINTS. DISCUSSED COLOSTOMY CARE FLATUS BEING REMOVED FROM POUCH AND PT. STATES "WHAT IS THAT UGLY GROSS THING". SOME TEACHING DONE ON IMPORTANCE OF COLOSTOMY AND COLOSTOMY CARE. STATES "I DIDNT KNOW I HAD ONE". MINE DRSG. REMAINS INTACT ON ABDOMEN WITH SMALL AMOUNT OLD DRAINAGE.
--- NOTE | 2021-09-13 15:56 | NUR ---
Pt. moved to room #228 at 1530. Belongings sent with pt., glasses and cap . Patient has top dentures in. Compliant with move. Sitting up in chair watching t.v. Remote monitoring notified of pt. recent exit seeking. no c/o pain at this time. Mild hiccups noted. Have relieved the colostomy pouch x 3 this shift of flatus. Explained to patient what was being done.
--- NOTE | 2021-09-13 17:36 | NUR ---
Pt. eating solid food at this time, tolerating well. Scant amount brown fluid out of ostomy, much flatus today.
--- NOTE | 2021-09-13 18:04 | NUR ---
ostomy putting out small amount soft stool at this time. patient ate 50% of meal and became full. tray removed , pt. denies nausea. At this time more flatus removed from pouch and pt. discussing how disgusting it is. Positive Verbal information given on purpose of colostomy, patient mildly receptive and small amount feedback given. Remains somewhat confused, "is this your house?", "i may go to store later".
--- NOTE | 2021-09-14 19:33 | NUR ---
SHIFT SUMMARY PT HAS BEEN CONFUSED T/O SHIFT. FEELS BETTER AFTER GOING FOR WALKS w/ SBA. GETS UPSET ABOUT "THE GROSS THING" AND POINTS TO HIS ABD. UP IND IN ROOM. EATING AND DRINKING WELL. GOOD OSTOMY OUTPUT. MINE REMAINS IN PLACE.
--- NOTE | 2021-09-15 12:00 | NUR ---
WOUND CARE/OSTOMY CHANGE DUE TO PT PULLING MINE APART & OSTOMY SITTING OVER MINE DRSG. MINE DRSG REMOVED & STAPLE LINE CLEANED w/ WOUND MARKETING TECHNOLOGIST. NEW OSTOMY APPLIANCE PLACED. STOMA BEEFY PINK; WNL. PT WAS NOT INVOLVED w/ CARE & REFUSED TO LOOK AT IT, BUT DID RECOGNIZE IT & IT'S FUNCTION WHEN TALKING TO HIM ABOUT IT. HE IS BEGINING TO ASK ?'s ABOUT IT.
--- NOTE | 2021-09-15 17:37 | NUR ---
SHIFT SUMMARY PT HAS BEEN COOPERATIVE T/O SHIFT. MOVES AROUND IN ROOM WELL, FROM CHAIR TO BED & UP IN ROOM. SHOWERED THEN WOUND CARE & OSTOMY APPLIANCE CHANGE COMPLETED. SISTER (ANTOINETTE) CALLED TO GET AN UPDATE. SHE WOULD LIKE TO BE THE ONE CALLED FOR UPDATES FROM MD's. SHE STATES SHE IS TEMPORARILY OUT OF STATE BUT WILL RETURN HOME END OF THIS MONTH. SHE IS UNSURE AT THIS TIME WHAT OSTOMY CARE CONSISTS OF & IS UNSURE OF SHE CAN BE HIS CAREGIVER.
--- NOTE | 2021-09-16 06:27 | NUR ---
SHIFT SUMMARY POD5 TRANSVERSE COLECTOMY c OSTOMY PLACED, ALERT AND CONFUSED (USUALLY PLEASANT BUT CAN GET AGGRIVATED AT TIMES), REPORTS BEING TIRED OF BEING HERE AND WANTING TO GO HOME, PARTIALLY REMOVED OSTOMY POUCH WHICH WAS JUST REPLACED YESTERDAY DURING DAY SHIFT PER REPORT, THIS WAS REPLACED AGAIN HE HAD SHOWERED AND THE SEAL WAS BROKEN AT MORE THAN HALF THE CIRCUMFERENCE. NEW OSTOMY BAG REINFORCED c COMPRESSION TAPE, SOME DRAINAGE NOTED ON PATIENTS GOWN NEAR END OF SHIFT, APPEARS TO BE SS AND COMING FROM HIS NAVEL, PT WAS VERY DEFENSIVE WHEN I TRIED TO EXAMINE THAT AREA AND WAS ADAMANT ABOUT ME NOT TOUCHING HIS NAVEL. NO OTHER EVENTS THIS SHIFT. CALL LIGHT IN [facility], WILL CTM AND REPORT TO DAY RN.
[2021-09-16 09:09] LABS: Hematocrit 36.4 % (37.0-53.0); Mean Corpuscular HGB 29.7 pg (26.0-34.0); Mean Corpuscular Volume 90 fL (80-100); Mean Platelet Volume 8.9 fL (9.1-12.4); Platelet Count 404 K/mm3 (150-400); RDW Coefficient Variation 13.2 % (11.7-14.2); RDW Standard Deviation 43.8 fL (35.1-46.3); Red Blood Cell Count 4.04 M/mm3 (4.30-5.90); White Blood Cell Count 12.79 K/mm3 (4.00-11.30)
[2021-09-16 09:50] LABS: Alanine Aminotransfer (ALT/SGP 32 U/L (12-78); Albumin, Blood 2.7 g/dL (3.4-5.0); Albumin/Globulin Ratio 0.7 (0.8-1.8); Alk Phos 109 U/L (50-136); Anion Gap 7 mmol/L (6-16); Aspartate Aminotrans (AST/SGOT 24 U/L (12-37); Bilirubin, Total 0.4 mg/dL (0.1-1.0); Blood Urea Nitrogen 7 mg/dL (8-24); Bun/Creatinine Ratio 9.1 (12.0-20.0); CO2, Blood 27 mmol/L (21-32); Calcium, Blood 9.1 mg/dL (8.5-10.1); Chloride, Blood 102 mmol/L (98-108); Creatinine, Blood 0.77 mg/dL (0.60-1.20); Glomerular Filtration Rate >60 (60-); Glucose, Blood 142 mg/dL (70-99); Sodium, Blood 136 mmol/L (136-145); Thyroid Stimulating Hormone 0.998 uIU/mL (0.360-4.800); Total Protein, Blood 6.7 g/dL (6.4-8.2)
--- NOTE | 2021-09-16 13:54 | NUR ---
colostomy pouch with flatus and soft brown stool. emptied pouch of both. New gujanicee drsg to abdomen incision as it has small amount serousang drainage. Patient up in chair at this time watching t.v., has not been exit seeking .
--- NOTE | 2021-09-16 15:38 | NUR ---
Pt. verbalize that he is interested in someone coming to his home and helping him with his colostomy when he gets discharged. "i think its a good idea and i have some money". Discussed colostomy care and pt. states, " i better have help, in case something goes wrong". Thinking more lucid today, has not been exit seeking, mildly confused and forgetful about where he is at.
--- NOTE | 2021-09-16 17:20 | NUR ---
Pt. states missing top dentures. (bottoms not here at hospital). Observed top dentures wrapped in paper towel in shower area. Placed in cup with pt. name next to sink with toothbrush and toothpaste. Pt. shaved at this time, requested shave and shaved with electric and razor, tolerate well.
--- NOTE | 2021-09-17 06:17 | NUR ---
APTIENT IS AAOX3, SIGNIFICANT IMPROVEMENT IN MANTAL STATUS. NO ATTEMPTS TO ESCAPE THE ROOM THE LAST 12 HOURS. COLOSTOMY EMPTIED AND BURPED AT 1999. NO ACUTE DISTRESS NOTED AT THIS TIME. BED AT LOWER POSITION AND LOCKED.
--- NOTE | 2021-09-17 14:50 | NUR ---
Pt. stating "not hungry today". Colostomy putting out soft brown stool and flatus. Abdominal dressing changed this a.m.- saturated with serousang drainage, wes intact, incision well approximated. Patient c/o irritation and sensitivity at umbilical area. Call nurse in to room at this time and request another drsg. change, also asked " what am i going to do when i am at home? " asking many questions how the colostomy bag works and verbalizes some understanding, "i will need help". At this time dressing over incisional site saturated again with serousang drainage. new drsg applied, gauze dressing. Percocet i given for c/o 5/ 10 discomfort.
--- NOTE | 2021-09-17 16:03 | NUR ---
TEXT TO DR. LANDA REGARDING 2 SATURATED DRSGS ON ABDOMEN IN PAST 24 HOURS, DISTAL END FIRM, RED, AND EXTREME UMBILICAL TENDERNESS. SHYAM INTACT.
--- NOTE | 2021-09-17 16:15 | NUR ---
RETURN TEXT, DR. LANDA TO STOP BY LATER TO SEE PT.-NEW CLOTHES GIVEN TO PT. PER PT. ADVOCATE PT. HAS BEEN REQUESTING "CLOTHES THAT FIT" FOR A FEW DAYS. UP IN CHAIR WITH NEW CLOTHES ON. DRSG. ON ABDOMEN CLEAN, DRY AND INTACT AT THIS TIME.
--- NOTE | 2021-09-17 17:51 | NUR ---
DR. LANDA HERE TO SEE PATIENT. BROTHER HERE AT THIS TIME TOO. INSTRUCTED TO CHANGE DRSG. ON ABDOMEN FOR NOW NEEDED.
--- NOTE | 2021-09-17 18:31 | NUR ---
ABDOMINAL DRSG. CHANGED AGAIN, OLD DRSG. WITH SEROUSANG, MOD AMOUNT. PERCOCET FOR 5 /10 PAIN ABDOMINAL NEAR UMBILICUS. PATIENT STATES HE IS RECEPTIVE TO GOING SOMEWHERE FOR HELP AND HAVING HELP DUE TO HIS COLOSTOMY. PATIENT IN GOOD SPIRITS AT THIS TIME. DID NOT EAT MUCH DINNER " JUST NOT HUNGRY TODAY', 'THE FOOD WAS BETTER YESTERDAY".
--- NOTE | 2021-09-17 18:35 | NUR ---
RELIEVED COLOSTOMY OF MODERATE AMOUNT OF FLATUS, SMALL AMOUNT OF SOFT BROWN STOOL, POUCH INTACT.
--- NOTE | 2021-09-18 04:43 | NUR ---
PATIENT HAD BM X2. FIRST AT 0100, SMALL AMMOUNT AND ACCIDENTAL ON BED. SECOND ONE AT 0445 BROWNISH DIARRHEA MODERATE AMOUNT IN THE BATHROOM.
--- NOTE | 2021-09-18 06:29 | NUR ---
AAOX4. PT SIGNIFICANT MENTAL IMPROVEMENT. PT HAD BM AND FLATUS THROUGH COLOSTOLY BAG, EMPTIED X2. ABDOMINAL DRESSING WAS MODERATELY SATURATED WITH SANGUINEOUS DRAINAGE. DRESSING WAS CHANGED AT 0400. NO ACUTE DISTRESS NOTED.
--- NOTE | 2021-09-18 17:04 | NUR ---
SHIFT SUMMARY PT ALERT AND ORIENTED. CONFUSED AT TIMES, REPEATS QUESTIONS FREQUENTLY T/O SHIFT. PT FRUSTRATED ABOUT POSSIBLE PLACEMENT TO "SMOKE FREE FACILITY." VSS. PT NOT ON TELEMETRY. IND IN ROOM. NO CP OR PRESSURE NOTED. DRESSING INTACT. OSTOMY BURPBED AND DRAINED 3 TIMES T/O SHIFT. PT'S BROTHER TO SEE PT DURING VISITING HOURS AND TO DISCUESS WITH FISHER LAMPARA NET REGARDING PT. DR. STONE TO SEE PT TO ASSESS WOUND. WILL CONT TO MONITOR UNTIL REPORT GIVEN TO NIGHTSHIFT RN.
--- NOTE | 2021-09-18 18:20 | NUR ---
DRESSING CHANGED DRESSING ON ABD CHANGED. SCANT AMOUNT OF BROWN DRAINAGE NOTED ON DRESSING. WOUND SITE CLEANED AND RE-DRESSED.
--- NOTE | 2021-09-19 07:18 | NUR ---
AAOX4. ABD DRESSING WAS CHANGED X1. SMALL SANGUINEOUS DRAINAGE. VERY SMALL AMOUNT OF LIQUID BM. NO ACUTE DISTRESS NOTED. SLEEPING IN BED.
--- NOTE | 2021-09-19 19:20 | NUR ---
SHIFT SUMMARY PT ALERT AND ORIENTED. IND IN ROOM. CONFUSED AT TIMES. REPEATS QUESTIONS FREQUENTLY T/O SHIFT. VSS. NO CP OR PRESSURE REPORTED. PT REPORTS PAIN AT TIMES. MEDICATED PER EMAR. PT REPORTS RELIEF. PT VOICING INTERST IN MANAGING COLOSTOMY BAG THIS EVENING. STATING HE FEELS "POSITIVE." PT PROVIDED WITH ENCOURAGMENT REGARDING SITUATION. DR. STONE CHANGED PT'S ABD DRESSING THIS AFTERNOON. REPORT TO BE GIVEN TO NIGHTSHIFT RN.
--- NOTE | 2021-09-20 18:05 | NUR ---
PATIENT CURRENTLY SITTING UP EATING MEAL. NO SIGNS OR SYMPTOMS ACUTE DISTRESS NOTED. CALL LIGHT AND WATER IN EASY REACH. ABLE TO MAKE NEEDS AND WANTS KNOWN. OSTOMY APPLIANCE CHANGED TODAY AFTER PATIENT SHOWERED. EDUCATION ON OSTOMY CARE PROVIDED. MEDICATED FOR PAIN TODAY PER ORDERS AND MED WAS EFFECTIVE FOR PAIN. DRESSING CHANGED TO ABDOMEN INCISION WELL. WILL MONITOR.
--- NOTE | 2021-09-21 07:19 | NUR ---
AAOX4. PT HAD A LEAKAGE FRON COLOSTOMY BAG R/T FAULTY BAG AND CAUSE SOME IRRITATION SURROUNDING THE STOMA. BAG WAS REPLACED AND ALSO ABD DRESSING WAS CHANGED. WOUNDS DRESSING HAD SOME MODERATE AMOUNT OF DRAINAGE LIGHT BROWNISH COLOR. PT HAS SOME PAIN AND WAS MEDICATED. NO ACUTE DISTRESS NOTED AT THIS TIME.
--- NOTE | 2021-09-21 09:12 | NUR ---
PATIENT CURRENTLY LYING IN BED WITH NO SIGNS OR SYMPTOMS ACUTE DISTRESS NOTED. CALL LIGHT AND WATER IN EASY REACH. ABLE TO MAKE NEEDS AND WANTS KNOWN.
--- NOTE | 2021-09-21 17:45 | NUR ---
DISCHARGE: PATIENT HAD A GOOD DAY TODAY. NO SIGNS OR SYMPTOMS ACUTE DISTRESS NOTED. NO COMPLAINTS VOICED AT THIS TIME. CALL LIGHT AND WATER IN EASY REACH. ABLE TO MAKE NEEDS AND WANTS KNOWN. WILL MONITOR.
--- NOTE | 2021-09-22 06:12 | NUR ---
VSS. A/OX4. MIDLINE ABD INCISION W/ SHYAM, COVERED W/ ABD PAD. R COLOSTOMY BAG REINFORCED. C/O ABD PAIN-SEE EMAR. POSSIBLE DISCHARGE TO [facility]. NO ISSUES THROUGHOUT SHIFT.
--- NOTE | 2021-09-22 18:17 | NUR ---
PATIENT CURRENTLY SITTING UP IN BED WITH NO SIGNS OR SYMPTOMS ACUTE DISTRESS NOTED. CALL LIGHT AND WATER IN EASY REACH. ABLE TO MAKE NEEDS AND WANTS KNOWN. PATIENT HAS BEEN EDUCATED ON COLOSTOMY CARE BUT DOES NOT SEEM TO BE RETAINING THE INFORMATION. PATIENT CONCERNED WITH DISCHARGE. WILL CONTINUE TO MONITOR.
--- NOTE | 2021-09-23 06:30 | NUR ---
VSS. C/O PAIN TO LOWER ABD. MIDLINE INC W/ MINIMAL SEROSANGUINOUS DRAINAGE. DRESSING CHANGED ONCE PRN. R ABD COLOSTOMY REINFORCED. NO LEAKAGE THIS SHIFT. BURPED TWICE. PT REEDUCATED ABOUT COLOSTOMY CARE AND NOTIFYING STAFF IF IT NEEDS TO BE TAKEN CARE OF IF HE IS UNWILLING. NO ISSUES THROUGHOUT SHIFT.
--- NOTE | 2021-09-23 18:17 | NUR ---
PATIENT CURRENTLY SITTING UP EATING MEAL. NO SIGNS OR SYMPTOMS ACUTE DISTRESS NOTED. CALL LIGHT AND WATER IN EASY REACH. ABLE TO MAKE NEEDS AND WANT KNOWN. COLOSTOMY CHANGED TODAY, SHYAM REMOVED FROM ABD INCISION BY DR LANDA, DRESSING CHANGED TO MID ABDOMEN. WILL MONITOR.
--- NOTE | 2021-09-24 06:21 | NUR ---
VSS. MIDLINE ABD INC TENDER, SHYAM REMOVED ON DAYSHIFT AT BEDSIDE BY PHYSICIAN PER REPORT. +FLATUS THROUGH COLOSTOMY. PT STILL REFUSING TO HELP LEARN ABOUT COLOSTOMY CARE. PAIN MANAGED W/ PAIN MEDICATIONS-SEE EMAR. NO ISSUES OVERNIGHT
--- NOTE | 2021-09-24 16:35 | NUR ---
PATIENT CURRENTLY LYING IN BED WITH NO SIGNS OR SYMPTOMS ACUTE DISTRESS NOTED. CALL LIGHT AND WATER IN EASY REACH. ABLE TO MAKE NEEDS AND WANTS KNOWN. PATIENT IS SHOWING MORE INTEREST IN TAKING CARE OF HIS COLOSTOMY. HE EMPTIED IT TODAY AND DID FARELY WELL. WILL MONITOR.
--- NOTE | 2021-09-25 04:29 | NUR ---
PT IN BED AT THIS TIME WHERE HE REMAINS THROUGHOUT THE NIGHT AND IS RESTING COMFORTABLY. NO CHANGE IN CONDITION OR BEHAVIOR. ASSISTED WITH CARE AND ADLS, ASSISTED WITH BATHROOM AND TOILETING NEEDS, MEDICATED INDICATED. CALL [facility]LOW PLACED NEAR HIM AND REMINDED TO CALL FOR HELP WHEN ASSISTANCE IS NEEDED HE IS MONITORED.
--- NOTE | 2021-09-25 18:11 | NUR ---
STAFF FROM [facility] CAME TO [facility] FOR PLACMENT. THEY REQUESTED CHART RECORDS SO THAT HE COULD BE REVIEWED FOR POSSIBLE PLACEMENT. RELEASE OF INFORMATION SIGNED BY THE PT. DISCUSSED WITH CARE MANAGEMENT DIRECTOR AND SHE VERBALIZED THAT A PACKET HAD ALREADY BEEN, SENT BUT TO PROVIDE INFORMATION REQUESTED BY [facility] STAFF NEEDED FOR PLACMENT. MD NOTES, NURSING NOTES, THERAPY NOTES, STEEL POURER HELPER RECORDS AND LABS PRINTED FOR REVIEW BY [facility].
--- NOTE | 2021-09-25 19:20 | NUR ---
SARAH RODRIGUEZ FROM [facility] ARRIVED TO OBTAIN INFORMATION SO PT COULD BE REVIEWED FOR PLACEMENT AT [facility]. SHE PROVIDED PHOTO ID AND PROOF OF EMPLOYMENT TO [facility] VIA PAY STUB. PT SIGNED RELEASE OF INFORMATION FOR SARAH AND [facility] TO HAVE RECORDS FROM HIS STAY IN ORDER TO HELP ARRANGE PLACMENT. LABS NOT PROVIDED IN PACKET SARAH STATED THAT INFORMATION WAS NOT REQUESTED AT THIS TIME.
--- NOTE | 2021-09-26 04:48 | NUR ---
PT IN BED AT THIS TIME WHERE HE REMAINS THROUGHOUT THE NIGHT AND IS RESTING COMFORTABLY. ASSISTED WITH CARE AND ADLS, ASSISTED WITH TOILETING AND BATHROOM NEEDS. HE IS ALERT AND ORIENTED, CONDITION IS STABLE. HE IS MEDICATED INDICATED. CALL [facility] PLACED NEAR HIM AND ENCOURAGED TO CALL FOR HELP WHEN ASSISTANCE IS NEEDED HE IS MONITORED.
--- NOTE | 2021-09-26 20:25 | NUR ---
[facility].REFUSED CARE. RN NOTIFIED.
--- NOTE | 2021-09-27 04:25 | NUR ---
PT IN BED NAD IS RESTING IN STABLE CONDITION. ALERT AND AWAKE, DENIES PAIN. ASSISTED WITH CARE AND ADLS, ASSISTED WITH BATHROOM AND TOILETING NEEDS. PT IS ENCOURAGED TO CALL FOR HELP WHEN ASSISTANCE IS NEEDED HE IS MONITORED. CALL LIGHT PROVIDED TO HIM.
--- NOTE | 2021-09-27 16:29 | NUR ---
SHIFT SUMMARY PT A/O X3 WITH PERIODS OF FORGETFULNESS. PT EXPRESSED THAT HE IS MORE COMFORTABLE WITH A MALE STAFF MEMBER HELPING WITH HIS OSTOMY CARE THAN FEMALE. OSTOMY APPLIANCE CHANGED TODAY. PT HAD A MOMENT OF FORGETFULNESS AND DRESSED HIMSELF BEFORE THE APPLIANCE WAS PUT BACK ON AFTER HIS SHOWER. DUE TO THE PATIENT SLEEPING POORLY LAST NIGHT THE PHYSICIAN HAS ALLOWED THE PATIENT TO BE EXEMPT FROM [employer] CLERK VITALS. AWAITING PLACEMENT. VSS. WILL REPORT TO GABY RN.
--- NOTE | 2021-09-28 04:57 | NUR ---
PT IS A/O W/SOME FORGETFULLNESS. ABLE TO MAKE HIS NEEDS NKOWN. ABD MIDLINE INCISION BING, PT WOULD NOT ALLOW DRSG TO BE APPLIED TO INCISION. COLOSTOMY EMPTIED OF SOFT BROWN STOOL THEN REIFORCED W/SKIN PREP & TAPE.
--- NOTE | 2021-09-28 18:05 | NUR ---
PT AOX3 WITH MILD CONFUSION. PT JUST SEEMS TO BE VERY UNHAPPY WITH HAVING AN OSTOMY BAG AND DOES NOT LIKE TO MESS WITH IT. PT HAS HOWEVER REMOVED IT TWICE AND WILL JUST WALK IN AND TAKE A SHOWER WITHOUT ASKING FOR ASSISTANCE WITH COLOSTOMY BAG. PT DID SEEM WILLING TO RECIEVE ASSISTANCE TOOK BAG OFF AND HAD IT REPLACED X2 TODAY. PT DENIES PAIN AND IS INDEPENDENT IN ROOM WILL CONTINUE TO MONITOR. CALL LIGHT IS WITHIN REACH.
--- NOTE | 2021-09-29 05:44 | NUR ---
VSS. PAIN MANAGED W/ MEDICATIONS-SEE EMAR. PT REEDUCATED ABOUT COLOSTOMY CARE. APPEARS TO BE SOME "DISCONNECT" WITH PT DOING COLOSTOMY CARE INDEPENDENTLY. RN REEDUCATED PT ABOUT BAG MAINTENANCE, "BURPING" BAG, AND MONITORING FOR LEAKS. pT STATED "WELL THAT DOESNT SEEM TO HARD, IM GLAD SOMEBODY IS FINALLY TEACHING ME THESE THINGS". THIS RN PREVIOUSLY PERSONALLY EDUCATED PT ALL 3 SHIFTS THE PRIOR WEEK. RN ALSO EDUCATED PT THAT IF HE IS TO WALK AROUND WITHOUT A COLOSTOMY BAG IN PLACE AND COVER STOMA WITH ADULT BRIEFS, HE COULD CONTRACT AN INFECTION AND COULD BECOME SEPTIC. PT EXPRESSED TO THIS RN THAT HE IS HOPING FOR ANY ALTERNATIVE THAN HIS COLOSTOMY AND BAG CHANGES. PLACEMENT ISSUES FOR D/C PENDING.
--- NOTE | 2021-09-30 06:19 | NUR ---
VSS. PAIN MEDS GIVEN AT START OF SHIFT-SEE EMAR. PT DENIED NEED FOR PAIN MEDICATION IN AM. COLOSTOMY BAG BURPED/EMPTIED. PT POINTEDLY TURNED HEAD AWAY FROM COLOSTOMY BAG WHILE RN PROVIDED CARE. PT RESISTED ANY COLOSTOMY CARE EDUCATION THIS SHIFT. MIDLINE ABD INC INTACT/HEALING. PT REFUSED AM PRILOSEC. PT APPEARS TO FORCING HIMSELF TO GAG. DENIED NEED FOR NAUSEA MEDICATIONS. NICOTINE PATCH CHANGED TO PRN PER DAYSHIFT RN. AWAITING PLACEMENT FOR DISCHARGE. WILL CONTINUE TO MONITOR.
--- NOTE | 2021-09-30 11:48 | NUR ---
Patient observed in bed this a.m. gagging and states he just"cant take it". states he has some nausea and pain due to needing to take a shower. Gagging quite intense. Zofran given and one percocet. Shower given and colostomy bag changed. Patient continues to take shower and is on his number 12 shower at this time. when not in the shower pt. is gagging and says its the only thing that fixes it. Appears very happy and satisfied in shower. lasts about 10 minutes, back to bed and then begans loud gagging and jumps back to shower.States he was obsessed with baths and showers as a child at home. "hot water fixes it".
--- NOTE | 2021-09-30 12:42 | NUR ---
PATIENT CONTINUING TO SHOWER, THAN TO BED AND BEGINS LOUD GAGGING NOISE. STATES HE IS NAUSEATED. CALL TO AND COMPAZINE ORDERED. PATIENT UP TO SHOWER AGAIN, COLOSTOMY REINFORCED. NO EMESIS SEEN OF YET.
--- NOTE | 2021-09-30 14:46 | NUR ---
PT. VERBALIZE MILD RELIEF AFTER COMPAZINE GIVEN AND THEN RECENTLY STARTED GROAING AND GAGGING AGAIN. STATES HE CANT QUIET NAME WHY HES DOING IT BUT SAYS "I MUST GO INTO THE BATHROOM OR ILL GO CRAZY". CONTINUES TO GROAN AND GAG AFTER SHOWER AND PERCOCET GIVEN ALONG WITH ZOFRAN. ENCOURAGED TO LAY DOWN BUT INSISTS ON ANOTHER SHOWER. SUPERVISION DURING THIS TIME, WHICH PT. DOES NOT OBJECT TO , DUE TO MEDICATIONS. AGAIN TALKED 1:1 WITH PT. TO VALIDATE FEELINGS AND FRUSTRATION. ENCOURAGED TO RELAX IN THE BED AT THIS TIME. AGREES BUT AT THIS TIME EXHIBITS OCCASIONAL GAG/GROAN. THIRD COLOSTOMY BAG PLACED IS STILL INTACT AT THIS TIME. HAS NOT HAD ACTUAL EMESIS, AND DOESNT SEEM TO BE DRY HEAVING, MORE OF A GAGGING IN THE THROAT.HAVE ASKED PT. IF HE HAS THROWN UP AND PT. STATES "I CANT EXPLAIN IT, IT COMES IN DIFFERENT FORMS, IT MANUFACTURES ITSELF". ENCOURAGED TO SHOW NURSE STAFF IF THROWS UP, EMESIS BAG EMPTY.
--- NOTE | 2021-09-30 15:29 | NUR ---
laid down again for approx 15 min. and now back in shower.
--- NOTE | 2021-09-30 15:46 | NUR ---
Patient is resting in bed now for first time all day for more than 15 minutes without taking a shower. No moan or gagging heard. questioned patient about pain level at this time and states "im fine right now. gonna come back to this hospital just for the showers and the hot water". no further distress noted at this time. Colostomy intact, clean, beefy red stoma. Abdomen soft denies nausea at this time.
--- NOTE | 2021-09-30 18:23 | NUR ---
Brother in to see pt. this evening, brought pt. clothing. Patient with no furhter complaint or shower seeking. appetite improved this evening, no further gagging sounds. Cheerful affect. Colostomy intact.
--- NOTE | 2021-10-01 04:52 | NUR ---
SHIFT SUMMARY NO ACUTE CHANGES OVERNIGHT. VSS. PT DIDN'T ATTEMPT TO GO TO HOT SHOWER TONIGHT. PT REPORTS SOME NAUSEA AND ABD PAIN (6/10 PAIN LEVEL) MEDICATED WITH ZOFRAN AND PERCOCET. SLEPT GOOD OVERNIGHT. VOIDING WITHOUT DIFFICULTY. OSTOMY BAG CHANGED BEFORE SLEEP BECAUSE IT WASN'T INTACT. PT WAS REALLY UPSET BECAUSE HIS SKIN IS SORE FOR HAVING MULTIPLE OSTOMY BAG CHANGED DURING THE DAY. INDEPENDENT IN ROOM. AOX3, FORGETFUL AT TIMES. CALL LIGHT WITHIN REACH. WILL PROVIDE REPORT TO ONCOMING NURSE.
--- NOTE | 2021-10-01 10:53 | NUR ---
c/o slight nausea this a.m. and abd. discomfort. Medicated for both. No gagging heard and patient states "i was in my head yesterday, not sure what was going on, i just had to shower", pt. referring to multiple showers taken yesterday alternated with gagging. In good spirits today, appetite good. Colostomy intact putting out soft brown stool. verbalize relief with zofran and percocet. Watching t.v.
--- NOTE | 2021-10-01 17:31 | NUR ---
SHIFT SUMMARY: ALERT AND ORIENTED, FORGETFUL AT TIMES, PLEASANT AFFECT TODAY. DENIES ANY FURTHER NAUSEA OR PAIN TODAY. UP IN CHAIR WATCING TV TODAY. APPETITE GOOD. MED. AMOUNT BROWN SOFT STOOL IN COLOSTOMY. SMALL DRSG. ON INCISION FOR SCANT SEROUS DRAINAGE.
--- NOTE | 2021-10-02 03:59 | NUR ---
SHIFT SUMMARY AOX3, FORGETFUL AT TIMES. REINFORCE OSTOMY BAG BECAUSE BAG WAS NOT INTACT. APPEARS TO HAVE SOME SOFT BROWN STOOL. MIDLINE INCISION STILL HAS SOME SEROUS DRAINAGE, UNCHANGED. PT DENIES PAIN AND NAUSEA OVERNIGHT. HE SLEPT GOOD. AMBULATING INDEPENDENTLY IN ROOM. CALL LIGHT WITHIN REACH. WILL PROVIDE REPORT TO ONCOMING NURSE.
--- NOTE | 2021-10-02 17:52 | NUR ---
SHIFT SUMMARY PT POD #21 FOR COLOSTOMY PLACEMENT. PT TO DC TO [facility] SOON BUT WHEN EXACTLY IS UNCLEAR. PT IS FAIRLY ORIENTED BUT HAS MOMENTS OF CONFUSION/FORGETFULNESS. OSTOMY BAG REPLACED THIS SHIFT AND EDUCATED PROVIDED TO THE PATIENT. VSS. WILL REPORT TO GABY RN.
--- NOTE | 2021-10-03 08:28 | NUR ---
SUMMARY PT CONTINUES IRRITABLE AT STILL BEING HOSPITALIZED. REFUSED PRILOSEC THIS AM. WANTS TO BE LEFT ALONE TO SLEEP.
--- NOTE | 2021-10-03 09:15 | NUR ---
DR SOSA IN TO SEE PT PT NOW TAKING SHOWER.
--- NOTE | 2021-10-03 09:26 | NUR ---
PT WANTED TO TAKE SHOWER PRIOR TO MORNING MEDS.
--- NOTE | 2021-10-03 10:57 | NUR ---
MIDLINE INCISION OOZING SMALL AMOUNT SS OOZING NOTED TO MIDLINE INCISION. PLACED GAUZE AND MEDIPORE TAPE.
--- NOTE | 2021-10-03 17:19 | NUR ---
summary NO ACUTE CHANGES T/O SHIFT. PT TOOK TWO SHOWERS. INDEPENDENT IN ROOM. EMPTIED OSTOMY INDEPENDENTLY THIS MORNING. PT HAS SMALL AMT SS OOZING FROM MIDLINE INCISION. PT MEDICATED THIS AM FOR ABDOMINAL PAIN. REPORTED PAIN IMPROVED AFTER MEDICATION.
--- NOTE | 2021-10-03 18:20 | NUR ---
DRAINAGE FROM MIDLINE SURGICAL INCISION SS DRAINAGE FROM MIDLINE SURGICAL INCISION APPEARS TO BE INCREASING. PLACED NEW GAUZE W/MEDIPORE TAPE TO SITE. MADE NOTE OF IT ON BOARD IN ORDER TO F/U W/HOSPITALIST. PT RESTING IN BED. CALL LIGHT IN REACH
--- NOTE | 2021-10-04 07:29 | NUR ---
SUMMARY PT IN SHOWER FREQUENTLY DURING NIGHT. STATES IT DISTRACTS HIM FROM SITUATION.
--- NOTE | 2021-10-04 09:24 | NUR ---
PT DRY HEAVING STATED IT WAS DUE TO ABDOMINAL PAIN AND REQUESTED PERCOCET. MEDICATED FIRST W/ZOFRAN PER ORDERS AND THEN ADMINISTERED PERCOCET PER PT REQUEST. STOMA PUTTING OUT SOFT DAVIS STOOL.
--- NOTE | 2021-10-04 10:58 | NUR ---
SPOKE TO DR SOSA REPORTED THAT PT HAS SMALL AMOUNT SS DRAINAGE FROM MIDLINE INCISION. DR SOSA ASKED WE PASS ON TO SURGEON TOMORROW. ALSO REPORTED PT IS REFUSING LOVENOX AND PAS. PT IS UP FREQUENTLY. PT SHOWERING COMPULSIVELY.
--- NOTE | 2021-10-04 11:55 | NUR ---
ANXIOUS PT ANXIOUS ABOUT BEING DC'D AND ABOUT LIVING W/OSTOMY (LENGTH OF TIME). WROTE QUESTION ON BOARD TO REMIND TO ASK WHEN SEES DR LANDA. REMINDED HIM THAT DC PLANNING IS NOT IN TODAY, THEY WILL WORK ON HIS DC TOMORROW. PT RESTING IN BED. DENIES ANY NEEDS AT THIS TIME.
--- NOTE | 2021-10-04 13:50 | NUR ---
PT'S OSTOMY LIFTED/LEAKING PLACED NEW APPLIANCE. PT TOLERATED FAIR. FRUSTRATED AT "BEING POKED AT".
--- NOTE | 2021-10-04 16:06 | NUR ---
turned over care to amber lepe rn
--- NOTE | 2021-10-04 17:17 | NUR ---
TOOK OVER CARE OF PATIENT AT 1630 FROM [facility]. PATIENT WAS SHOWERING AT THAT TIME, APPARENTLY THIS IS THE FORTH TIME TODAY TO SHOWER. PATIENT MEDICATED FOR PAIN PER PATIENT REQUEST AND PER MD ORDERS-SEE EMAR. WILL MONITOR.
--- NOTE | 2021-10-05 05:01 | NUR ---
PT IS IN BED AND IS RESTING IN STABLE CONDITION, DENIES PAIN AT THIS TIME. ASSISTED WITH HIS CARE AND ADLS, ASSISTED WITH BATHROOM AND TOILETING NEEDS. HE IS ALERT AND ORIENTED, MEDICATED INDICATED. PT IS ENCOURAGED TO CALL FOR HELP WHEN ASSISTANCE IS NEEDED HE IS MONITORED. CALL LIGHT PROVIDED TO HIM.
--- NOTE | 2021-10-05 10:46 | NUR ---
PT. TAKING MULTIPLE SHOWERS THIS A.M.- STATES HE IS DONE AND NEW DRSG. TO ABD. INCISION IT IS LEAKING A SEROUS DRAINAGE. AFTER LETTING GAS OUT OF COLOSTOMY POUCH AND ADDING NEW ABD. DRSG., PT. OBSERVED REMOVING CLOTHES AND IS BACK IN THE SHOWER.
--- NOTE | 2021-10-05 17:33 | NUR ---
SHIFT SUMMARY: PATIENT TOOK NO FURTHER SHOWERS TODAY. WARM BLANKETS GIVEN FOR PERIODS OF FEELING COLD. VSS. BROTHER IN TO VISIT TODAY. DID ATTEMPT TEACHING IN REGARDS TO HANDLING THE COLOSTOMY. SHOWED PATIENT AGAIN HOW TO LET THE FLATUS OUT OF BAG AND EMPTY. APPEARS INTERESTED UNTIL BAG IS OPEN AND HE SMELLS IT AND GETS AGITATED. NOTED SMALL AMOUNT SEROUS DRAINAGE FROM ABD. INCISION AND THIS AGITATES PATIENT DUE TO T SHIRT SOILING. DRSG. APPLIED TO INCISION TODAY AFTER SHOWERS. COLOSTOMY PUTTING OUT SOFT BROWN STOOL TODAY, SMALL AMOUNT. APPETITE GOOD. SOME ABD. PAIN THIS EVENING HE RATES 6/10 AND REQUESTING 2 PERCOCET, GIVEN . STATES HE FEELS THAT WHEN HE GOES HOME HE WILL "NEED HELP WITH PUTTING A NEW ONE ON". STATES " I JUST CANT DO IT".
--- NOTE | 2021-10-05 17:45 | NUR ---
AT THIS TIME WENT INTO PT. ROOM TO EMPTY COLOSTOMY POUCH AND NOTED IT WAS EMTPY. CLOSED PROPERLY AND INTACT. PATIENT STATES THAT HE EMPTIED IT HIMSELF AND WASHED HIS HANDS REAL WELL . MUCH PRAISE AND ENCOURAGEMENT GIVEN AND PT. SEEMS VERY PLEASED WITH HIMSELF.
--- NOTE | 2021-10-06 10:30 | NUR ---
PT. GROANING THIS A.M.AND GAGGING. STATES HE HAS ABDOMINAL DISCOMFORT AND RATES IT A 10/10, REQUESTING PAIN MEDICATION. DENIES NAUSEA. UP TO THE SHOWER X 3 THIS MORNING AND AT THIS TIME IS RESTING IN BED. NEW DRSG. APPLIED TO INCISION AND COLOSTOMY BAG EMPTIED FOR MEDIUM AMOUNT OF BRONW SOFT STOOL. REFUSED TO EMPTY HIMSELF. VERBALIZE RELIEF OF ABDOMINAL DISCOMFORT AFTER PERCOCET AND 3 SHOWERS.
--- NOTE | 2021-10-06 17:56 | NUR ---
MULTIPLE SHOWERS TODAY.AT THIS TIME PT. IS UP IN CHAIR EATING DINNER. APPETITE GOOD. NEW DRESSING PLACED OVER INCISION (CLOSED WITH SHYAM REMOVED AND LEAKING SMALL TO MOD AMOUNT OF SEROUS DRAINAGE. COLOSTOMY INTACT WITH SOFT BROWN STOOL , STOMA BEEFY RED. DENIES PAIN AT THIS TIME, DENIES NAUSEA.
--- NOTE | 2021-10-07 03:00 | NUR ---
SHIFT SUMMARY A/O AND IND IN THE RM. MIDLINE DRESSING C/D/I. OSTOMY TO RLQ, EMPTIED BY PT THIS SHIFT, MARYURI COLE BOWEL MOVEMENT. RESTING PEACEFULLY. TOLERATING PO INTAKE. VOIDING WELL. WILL REPORT TO ONCOMING RN.
--- NOTE | 2021-10-07 09:29 | NUR ---
PT. VERY AGITATED. HAS REMOVED COLOSTOMY FLANGE AND POUCH AND HOLDING TOWEL OVER IT YELLING" WHY AM I EVEN HERE?WHY DID THE DOCTORS DO THIS TO ME?!!" 1;1 LISTENING AND VALIDATION OF FRUSTRATION SOMEWHAT HELPFUL, PT. RESTLESS AND FRUSTRATED ABOUT DISCHARGE. STATES HE CAN EMPTY IT BUT CANNOT CHANGE THE FLANGE. NEW COLOSTOMY FLANGE AND POUCH PLACED. REFUSED VS. REQUESTING PAIN MED. "MAYBE ILL JUST TAKE SHOWERS ALL DAY!". PERCOCET FOR C/O ABDOMINAL DISCOMFORT 04/16. "I CANT DESCRIBE THE PAIN, IT JUST COMES OVER ME!". CONTINUE TO LISTEN TO FRUSTRATIONS IS DEESCALTING THE AGITATION.
--- NOTE | 2021-10-07 14:22 | NUR ---
CALL TO BROTHER VINICIO REGARDING IMPENDING DISCHARGE TO HOME WITH HH TO FOLLOW. PATIENT STATES THAT BROTHER VINICIO TOLD HIM THIS MORNING THAT HE WOULD BE OUT OF TOWN FOR 2 DAYS AND UNABLE TO VISIT. MESSAGE LEFT WITH VINICIO. VERBAL 1:1 HELPFUL WITH PT. ANXIETY REGARDING DISCHARGE TO HOME, HELPFUL. NEW COLOSTOMY POUCH AND FLANGE AND INCISIONAL DRSG. ALL REMAIN CLEAN, DRY AND INTACT. SUPPLIES FOR DISCHARGE IN ROOM. CARE MANAGEMENT NOTIFIED OF BROTHER NOT BEING HERE TO TAKE PT. HOME. AWAITING RETURN CALL FROM VINICIO FOR AVAILABLE DAY AND TIME.
--- NOTE | 2021-10-07 16:26 | NUR ---
RECIEVED CALL FROM BROTHER VINICIO, STATES HE WILL BE HERE TOMORROW AT 1030 AM TO RECIEVE COLOSTOMY TRAINING AND TAKE PATIENT HOME. PLAN: HOME HEALTH TO FOLLOW AFTER AQUIRING PCP.
--- NOTE | 2021-10-07 17:20 | NUR ---
Discussed discharge tomorrow at 1030 a.m with brother Shaw. Patient positive about dc and home health to follow. Discussed travel with ostomy and care. Pt. reading dc phamplet about ostomy care and states he feels he just needs help with the flange change. Pt. does empty and burp bag.Small amount of clear drainage on incision and drsg. intact protects from clothing as this bothers him alot even a scant amount.
--- NOTE | 2021-10-08 07:06 | NUR ---
PT AWAKE,ANXIOUS REGARDING POSSIBLE DISCHARGE,IRRITABLE AND PICKING AT DRESSINGS AND OSTOMY APPLIANCE THIS AM.I SECURED OSTOMY APPLIANCE AND PLACED NEW DRESSING AFTER CLEANING WOUND.SCANT BLEEDING AT LOWER INC SCANT GAPPING.DAY SHIFT RN AGREES TO FOLLOW UP WT DR PETERS.
--- NOTE | 2021-10-08 12:15 | NUR ---
OSTOMY EDUCATION OSTOMY EDUCATION PROVIDED TO PT AND HIS BROTHER. THEY WERE EDUCATED TO CHANGE THE OSTOMY APPLIANCE. THEY WERE EDUCATED ABOUT HOW TO APPLY TOE OSTOMY APPLIANCE WAFER AND BAG. ALSO EDUCATION WAS PROVIDED ABOUT USING SKIN PREP, ADHESIVE REMOVER AND OSTOMY PASTE. PT EDUCATED ABOUT USING AN OSTOMY BELT. PT PARTICIPATED IN REMOVING THE OLD OSTOMY APPLIANCE AND ATTATCHING THE NEW BAG TO THE WAFER. HIS BROTHER WAS ENGAGED IN THE EDUCATION AND DEMONSTRATED ATTATCHING THE BAG TO THE WAFER. DURING THE OSTOMY CHANGE PROCESS PT EXPRESSED FRUSTRATION ABOUT CARING FOR THE OSTOMY. HIS BROTHER BECAME FRUSTRATED WITH HIM AND LEFT THE ROOM FOR A SHORT TIME BUT WAS ABLE TO SEE THE PROCESS FROM BEGINNING TO END. WILL CONTINUE TO MONITOR UNTIL DISCHARGE. OSTOMY SUPPLIES PROVIDED FOR HOME USE.
[2021-10-08] MEDS ORDERED: Seroquel Xr50 MG PO (13:07)
[2021-10-08] MEDS ORDERED: NICO21TP TOP (13:07)
--- NOTE | 2021-10-08 14:09 | NUR ---
DISCHARGE PATIENT DISCHARGED IN STABLE CONDITION HOME. PATIENT AND FAMILY VERBALIZED UNDERSTANDING OF INSTRUCTIONS. ALL BELONGINGS PACKED AND SENT WITH PATIENT, PERIPHERAL IV REMOVED. PATIENT TAKEN TO PATIENT ENTRANCE WITH ASSISTANCE FROM RN
[2021-10-09] MEDS ORDERED: CEFD300 PO (16:19)
== END 2021-10-08 14:00 | disposition home or self-care (01) | DRG 329 ==
LOC: ER 15:24 → MEDS 15:25 → SURS 15:25
PROVIDERS: Emergency Medicine; Internal Medicine; Physician Assistant; ADMIT Surgery
PROC: 0DBL0ZZ Excision of Transverse Colon, Open Approach (ICD-10-PCS; principal; 2021-09-11)
PROC: 0D1L0Z4 Bypass Transverse Colon to Cutaneous, Open Approach (ICD-10-PCS; 2021-09-11)
PROC: 0WQF0ZZ Repair Abdominal Wall, Open Approach (ICD-10-PCS; 2021-09-11)
DX: K43.1 Incisional hernia with gangrene (principal); K63.1 Perforation of intestine (nontraumatic); G93.49 Other encephalopathy; Z20.822 Contact with and (suspected) exposure to COVID-19; R00.0 Tachycardia, unspecified; F10.10 Alcohol abuse, uncomplicated; G47.00 Insomnia, unspecified; Z96.651 Presence of right artificial knee joint; I10 Essential (primary) hypertension; F03.90 Unspecified dementia, unspecified severity, without behavioral disturbance, psychotic disturbance, mood disturbance, and anxiety; F17.210 Nicotine dependence, cigarettes, uncomplicated; Z88.5 Allergy status to narcotic agent; Z91.048 Other nonmedicinal substance allergy status; Z79.899 Other long term (current) drug therapy; Z90.49 Acquired absence of other specified parts of digestive tract
CPT/HCPCS: 36415; 70450; 74160; 80048; 80053; 80069; 82607; 82746; 83690; 83735; 84425; 84443; 85025; 85027; 86592; 88305; 93005; 93010; 94760; 94762; 96365-59; 96366; 96375; 97110; 97129; 97161; 97165; 99285-25; A9270; J1100; J1170; J1650; J1885; J2250; J2270; J2405; J2543; J2704; J2710; J3010; J3360; J7050; J7120; Q9967; U0004

== ENCOUNTER → 2021-10-08 | Outpatient (CLI) | payer MEDICARE, OTHER ==
[~2021-10-08] MED LIST changes: +CEFD300 PO; +NICO21TP TOP; +Seroquel Xr50 MG PO
== END | disposition home or self-care (01) ==
LOC: LAB SHORT 16:00
DX: T81.40XA Infection following a procedure, unspecified, initial encounter (principal)
CPT/HCPCS: 87070; 87075; 87077; 87186; 87205

== ENCOUNTER 2021-10-09 09:43 | Emergency (ER) | payer MEDICARE, OTHER ==
[~2021-10-09] VITALS: Ht 170.2 cm; Wt 74.8 kg
[~2021-10-09 09:43] MED LIST changes: -CEFD300 PO
[2021-10-09 10:49] LABS: BASOPHILS ABSOLUTE AUTO 0.01 K/mm3 (0.00-0.23); BASOPHILS PERCENT AUTO 0 % (0-2); EOSINOPHILS ABSOLUTE AUTO 0.04 K/mm3 (0.00-0.68); EOSINOPHILS PERCENT AUTO 0 % (0-6); Hematocrit 36.7 % (37.0-53.0); Hemoglobin 12.3 g/dL (13.5-17.5); IMMATURE GRAN ABSOLUTE AUTO 0.03 K/mm3 (0.00-0.10); IMMATURE GRAN PERCENT AUTO 0 % (0-1); LYMPHOCYTES ABSOLUTE AUTO 0.68 K/mm3 (0.84-5.20); LYMPHOCYTES PERCENT AUTO 6 % (21-46); MONOCYTES ABSOLUTE AUTO 1.06 K/mm3 (0.16-1.47); MONOCYTES PERCENT AUTO 9 % (4-13); Mean Corpuscular HGB 28.8 pg (26.0-34.0); Mean Corpuscular HGB Conc 33.5 g/dL (31.5-36.5); Mean Corpuscular Volume 86 fL (80-100); NEUTROPHILS ABSOLUTE AUTO 10.62 K/mm3 (1.96-9.15); NEUTROPHILS PERCENT AUTO 85 % (41-73); Platelet Count 283 K/mm3 (150-400); RDW Coefficient Variation 13.6 % (11.7-14.2); RDW Standard Deviation 42.3 fL (35.1-46.3); Red Blood Cell Count 4.27 M/mm3 (4.30-5.90); White Blood Cell Count 12.44 K/mm3 (4.00-11.30)
[2021-10-09 11:13] LABS: Alanine Aminotransfer (ALT/SGP 24 U/L (12-78); Alk Phos 110 U/L (50-136); Anion Gap 9 mmol/L (6-16); Aspartate Aminotrans (AST/SGOT 16 U/L (12-37); Bilirubin, Total 0.5 mg/dL (0.1-1.0); Blood Urea Nitrogen 13 mg/dL (8-24); Bun/Creatinine Ratio 18.9 (12.0-20.0); CO2, Blood 25 mmol/L (21-32); Calcium, Blood 10.2 mg/dL (8.5-10.1); Chloride, Blood 103 mmol/L (98-108); Creatinine, Blood 0.69 mg/dL (0.60-1.20); Globulin, Blood 3.9 g/dL (2.2-4.0); Glomerular Filtration Rate >60 (60-); Glucose, Blood 143 mg/dL (70-99); Potassium, Blood 3.6 mmol/L (3.5-5.5); Sodium, Blood 137 mmol/L (136-145); Total Protein, Blood 7.9 g/dL (6.4-8.2)
[2021-10-09 12:57] LABS: Influenza A, PCR NEGATIVE (NEGATIVE); Influenza B, PCR NEGATIVE (NEGATIVE); Resp Syncytial Virus, PCR NEGATIVE (NEGATIVE); SARS-Cov-2 (COVID-19) PCR, MMC NEGATIVE (NEGATIVE)
[2021-10-09] MEDS ORDERED: CEFD300 PO (16:19)
== END 2021-10-09 17:30 | disposition home or self-care (01) ==
LOC: ER 09:43
PROVIDERS: Emergency Medicine
DX: T81.49XA Infection following a procedure, other surgical site, initial encounter (principal); R10.9 Unspecified abdominal pain; I10 Essential (primary) hypertension; F17.210 Nicotine dependence, cigarettes, uncomplicated; Z20.822 Contact with and (suspected) exposure to COVID-19; Z91.041 Radiographic dye allergy status; Z88.5 Allergy status to narcotic agent; Z79.899 Other long term (current) drug therapy; Z98.890 Other specified postprocedural states
CPT/HCPCS: 0241U; 36415; 74177; 80053; 83605; 85025; 87070; 87075; 87077; 87186; 87205; 96374; 96375; 99284-25; A9270; J1170; J1790; J3370; J7030; J7050; Q9967

== ENCOUNTER 2021-11-03 14:40 | Emergency (ER) | payer MEDICARE, OTHER ==
[~2021-11-03] VITALS: Ht 170.2 cm; Wt 63.5 kg
[~2021-11-03 14:40] MED LIST changes: +AMLO5 PO; +BUPR150ER PO; -Budeprion Xl300 MG PO; +CEFD300 PO; +HYDHCL25 PO; +TRAZ50 PO
[2021-11-03 16:27] LABS: BASOPHILS ABSOLUTE AUTO 0.03 K/mm3 (0.00-0.23); BASOPHILS PERCENT AUTO 0 % (0-2); EOSINOPHILS PERCENT AUTO 1 % (0-6); Hematocrit 39.1 % (37.0-53.0); Hemoglobin 13.5 g/dL (13.5-17.5); IMMATURE GRAN ABSOLUTE AUTO 0.06 K/mm3 (0.00-0.10); IMMATURE GRAN PERCENT AUTO 1 % (0-1); LYMPHOCYTES ABSOLUTE AUTO 1.94 K/mm3 (0.84-5.20); LYMPHOCYTES PERCENT AUTO 17 % (21-46); MONOCYTES ABSOLUTE AUTO 1.36 K/mm3 (0.16-1.47); MONOCYTES PERCENT AUTO 12 % (4-13); Mean Corpuscular HGB 29.7 pg (26.0-34.0); Mean Corpuscular HGB Conc 34.5 g/dL (31.5-36.5); Mean Corpuscular Volume 86 fL (80-100); Mean Platelet Volume 9.8 fL (9.1-12.4); NEUTROPHILS PERCENT AUTO 70 % (41-73); Platelet Count 319 K/mm3 (150-400); RDW Coefficient Variation 14.6 % (11.7-14.2); RDW Standard Deviation 45.7 fL (35.1-46.3); Red Blood Cell Count 4.54 M/mm3 (4.30-5.90); White Blood Cell Count 11.59 K/mm3 (4.00-11.30)
[2021-11-03 17:00] LABS: Alanine Aminotransfer (ALT/SGP 28 U/L (12-78); Albumin, Blood 3.2 g/dL (3.4-5.0); Albumin/Globulin Ratio 1.1 (0.8-1.8); Alk Phos 78 U/L (50-136); Anion Gap 9 mmol/L (6-16); Aspartate Aminotrans (AST/SGOT 21 U/L (12-37); Bilirubin, Total 0.3 mg/dL (0.1-1.0); Blood Urea Nitrogen 25 mg/dL (8-24); Bun/Creatinine Ratio 28.6 (12.0-20.0); CO2, Blood 21 mmol/L (21-32); Calcium, Blood 8.9 mg/dL (8.5-10.1); Chloride, Blood 100 mmol/L (98-108); Creatinine, Blood 0.87 mg/dL (0.60-1.20); Globulin, Blood 2.8 g/dL (2.2-4.0); Glomerular Filtration Rate >60 (60-); Glucose, Blood 101 mg/dL (70-99); Potassium, Blood 3.4 mmol/L (3.5-5.5); Sodium, Blood 130 mmol/L (136-145)
[2021-11-03] MEDS ORDERED: ONDA4ODT MM (19:15)
== END 2021-11-03 19:18 | disposition home or self-care (01) ==
LOC: ER 14:40
PROVIDERS: Student in an Organized Health Care Education/Training Program
DX: E87.6 Hypokalemia (principal); E87.1 Hypo-osmolality and hyponatremia; R11.2 Nausea with vomiting, unspecified; Z88.5 Allergy status to narcotic agent; Z88.8 Allergy status to other drugs, medicaments and biological substances; Z79.899 Other long term (current) drug therapy; I10 Essential (primary) hypertension; F17.210 Nicotine dependence, cigarettes, uncomplicated
CPT/HCPCS: 36415; 74022; 80053; 85025; 99284-25; J7030

== ENCOUNTER 2021-11-14 15:14 | Inpatient (IN) | payer MEDICARE, OTHER ==
[~2021-11-14] VITALS: Ht 182.9 cm; Wt 58.9 kg
[2021-11-14 15:48] LABS: BASOPHILS ABSOLUTE AUTO 0.12 K/mm3 (0.00-0.23); BASOPHILS PERCENT AUTO 0 % (0-2); EOSINOPHILS ABSOLUTE AUTO 0.01 K/mm3 (0.00-0.68); EOSINOPHILS PERCENT AUTO 0 % (0-6); Hematocrit 50.1 % (37.0-53.0); Hemoglobin 17.6 g/dL (13.5-17.5); IMMATURE GRAN ABSOLUTE AUTO 0.61 K/mm3 (0.00-0.10); IMMATURE GRAN PERCENT AUTO 1 % (0-1); LYMPHOCYTES ABSOLUTE AUTO 1.39 K/mm3 (0.84-5.20); LYMPHOCYTES PERCENT AUTO 3 % (21-46); MONOCYTES ABSOLUTE AUTO 3.99 K/mm3 (0.16-1.47); MONOCYTES PERCENT AUTO 9 % (4-13); Mean Corpuscular HGB 29.7 pg (26.0-34.0); Mean Corpuscular HGB Conc 35.1 g/dL (31.5-36.5); Mean Corpuscular Volume 85 fL (80-100); Mean Platelet Volume 10.6 fL (9.1-12.4); NEUTROPHILS ABSOLUTE AUTO 36.12 K/mm3 (1.96-9.15); NEUTROPHILS PERCENT AUTO 86 % (41-73); Platelet Count 357 K/mm3 (150-400); RDW Standard Deviation 46.4 fL (35.1-46.3); Red Blood Cell Count 5.92 M/mm3 (4.30-5.90); White Blood Cell Count 42.24 K/mm3 (4.00-11.30)
[2021-11-14 16:08] LABS: Albumin, Blood 3.5 g/dL (3.4-5.0); Albumin/Globulin Ratio 0.9 (0.8-1.8); Bilirubin, Total 0.5 mg/dL (0.1-1.0); Bun/Creatinine Ratio 18.7 (12.0-20.0); Calcium, Blood 9.8 mg/dL (8.5-10.1); Creatinine, Blood 5.73 mg/dL (0.60-1.20); Globulin, Blood 4.1 g/dL (2.2-4.0); Potassium, Blood 3.4 mmol/L (3.5-5.5); Total Protein, Blood 7.6 g/dL (6.4-8.2)
[2021-11-14 16:37] LABS: Influenza A, PCR NEGATIVE (NEGATIVE); Influenza B, PCR NEGATIVE (NEGATIVE); Resp Syncytial Virus, PCR NEGATIVE (NEGATIVE); SARS-Cov-2 (COVID-19) PCR, MMC NEGATIVE (NEGATIVE)
[2021-11-14 17:54] LABS: Creatine Kinase MB 13.6 ng/mL (0.0-3.6); Creatine Kinase MB Index 2.9 (0.0-4.0)
[2021-11-14 18:01] LABS: Source, Urine Voided
[2021-11-14 18:04] LABS: Appearance, Urine Clear (Clear); Bilirubin, Urine Neg (Neg); Blood, Urine 1+ (Neg); Color, Urine Yellow (P-Yellow); Glucose Qualitative, Urine 1+ (Neg); Ketones, Urine Neg (Neg); Leukocyte Esterase, Urine 1+ (Neg); Nitrite, Urine Neg (Neg); Protein, Urine 2+ (Neg); Specific Gravity, Urine 1.015 (1.003-1.022); Urobilinogen, Urine NORM (Normal)
[2021-11-14 18:13] LABS: Amorphous Light (0-Heavy); Bacteria Few /hpf; Hyaline Casts 0-2 /lpf (0-2); Mucus Light (0-Heavy); Squamous Epithelial Cells Few /hpf (Few)
--- NOTE | 2021-11-14 19:34 | NUR ---
ADMISSION PATIENT ARRIVED TO PCU 18 FROM ER. SLID OVER TO PCU BED BY STAFF. FLUIDS INFUSING AT 200ML/HR AND PATIENT IS ON 4L NC. RIOS AND COLOSTOMY PRESENT BUT PATIENT STATING "I NEED TO POOP". COPIOUS AMOUNT OF MAROON LIQUID IN COLOSTOMY. SMALL AMOUNT OF BRIGHT RED BLOOD IN ATTENDS. PATIENT ORIENTED TO SELF AND SURROUNDINGS ONLY. STATES THAT HE MOVED INTO THE HOSPITAL LAST WEEK AND HAS HAD THE COLOSTOMY SINCE THIS AM. PATIENT WITH ONE EPISODE OF COFFEE GROUND EMESIS MEASURING ABOUT 15MLS. SUCTION SET UP AT BEDSIDE. ORAL CARE COMPLETED. HOSPITALIST MADE AWARE BY SEXUAL HEALTH PHYSICIAN.
[2021-11-14 20:06] LABS: Base Excess Venous -11.1 mmol/L; Bicarbonate Venous 16.1 mmol/L (24.0-30.0); pH Blood Venous 7.31 (7.34-7.37)
[2021-11-14 20:14] LABS: Source, Urine Catheter
[2021-11-14 20:16] LABS: Appearance, Urine Hazy (Clear); Bilirubin, Urine Neg (Neg); Blood, Urine 5+ (Neg); Color, Urine Yellow (P-Yellow); Glucose Qualitative, Urine 1+ (Neg); Ketones, Urine Neg (Neg); Leukocyte Esterase, Urine 1+ (Neg); Nitrite, Urine Neg (Neg); Protein, Urine 3+ (Neg); Urobilinogen, Urine NORM (Normal)
[2021-11-14 20:27] LABS: Amorphous Mod (0-Heavy); Bacteria Many /hpf; Granular Casts 0-2 /lpf (0); Hyaline Casts 0-2 /lpf (0-2); Mucus Mod (0-Heavy); Squamous Epithelial Cells Mod /hpf (Few)
[2021-11-14 21:50] LABS: Hematocrit 43.1 % (37.0-53.0)
[2021-11-14 22:09] LABS: Adenovirus F 40/41 Not Detected (NOT DETECT); Astrovirus Not Detected (NOT DETECT); Campylobacter Sp Not Detected (NOT DETECT); Cryptosporidium Not Detected (NOT DETECT); Cyclospora Cayetanensis Not Detected (NOT DETECT); E. Coli O157 Not Detected (NOT DETECT); Entamoeba Histolytica Not Detected (NOT DETECT); Enteroaggregative E. coli-EAEC Not Detected (NOT DETECT); Enteropathogenic E. coli-EPEC Not Detected (NOT DETECT); Enterotoxigenic E. coli-ETEC Not Detected (NOT DETECT); Giardia Lamblia Not Detected (NOT DETECT); Norovirus GI/GII Not Detected (NOT DETECT); Plesiomonas Shigelloides Not Detected (NOT DETECT); Rotavirus A Not Detected (NOT DETECT); Salmonella Sp Not Detected (NOT DETECT); Shiga Toxin-prod E. coli-STEC Not Detected (NOT DETECT); Shigella/Enteroin E. coli-EIEC Not Detected (NOT DETECT); Vibrio Cholerae Not Detected (NOT DETECT); Vibrio Sp Not Detected (NOT DETECT); Yersinia Enterocolitica Not Detected (NOT DETECT)
[2021-11-14 22:10] LABS: Sapovirus Not Detected (NOT DETECT)
--- NOTE | 2021-11-14 23:56 | NUR ---
UPDATE CRITICAL LACTIC ACID CALLED FROM LAB. CALL PLACED TO HOSPITALIST. ORDERS RECIEVED FOR 700ML FLUID BOLUS TO REPLACE OUTPUT FROM COLOSTOMY THEN RESUME 200 MLS/HR AFTER BOLUS IS COMPLETE.
[2021-11-15 03:52] LABS: BASOPHILS ABSOLUTE AUTO 0.06 K/mm3 (0.00-0.23); BASOPHILS PERCENT AUTO 0 % (0-2); EOSINOPHILS PERCENT AUTO 0 % (0-6); Hematocrit 36.3 % (37.0-53.0); Hemoglobin 12.6 g/dL (13.5-17.5); IMMATURE GRAN ABSOLUTE AUTO 0.26 K/mm3 (0.00-0.10); IMMATURE GRAN PERCENT AUTO 1 % (0-1); LYMPHOCYTES ABSOLUTE AUTO 0.61 K/mm3 (0.84-5.20); LYMPHOCYTES PERCENT AUTO 2 % (21-46); MONOCYTES PERCENT AUTO 7 % (4-13); Mean Corpuscular HGB 29.5 pg (26.0-34.0); Mean Corpuscular HGB Conc 34.7 g/dL (31.5-36.5); Mean Corpuscular Volume 85 fL (80-100); Mean Platelet Volume 10.6 fL (9.1-12.4); NEUTROPHILS ABSOLUTE AUTO 28.21 K/mm3 (1.96-9.15); NEUTROPHILS PERCENT AUTO 90 % (41-73); Platelet Count 212 K/mm3 (150-400); RDW Coefficient Variation 15.3 % (11.7-14.2); RDW Standard Deviation 47.6 fL (35.1-46.3); Red Blood Cell Count 4.27 M/mm3 (4.30-5.90); White Blood Cell Count 31.34 K/mm3 (4.00-11.30)
[2021-11-15 04:09] LABS: Magnesium, Blood 2.3 mg/dL (1.6-2.4)
[2021-11-15 04:12] LABS: Albumin/Globulin Ratio 0.6 (0.8-1.8); Bilirubin, Total 0.3 mg/dL (0.1-1.0); Bun/Creatinine Ratio 21.1 (12.0-20.0); Calcium, Blood 7.9 mg/dL (8.5-10.1); Creatinine, Blood 5.11 mg/dL (0.60-1.20); Globulin, Blood 3.3 g/dL (2.2-4.0); Potassium, Blood 3.5 mmol/L (3.5-5.5)
[2021-11-15 04:16] LABS: Total Protein, Blood 5.3 g/dL (6.4-8.2)
--- NOTE | 2021-11-15 05:57 | NUR ---
SHIFT SUMMARY PATIENT ALERT AND ORIENTED TO SELF AND SURROUNDINGS ONLY BUT ANSWERS SOME QUESTIONS. VSS. PATIENT ON 3L WITH O2 SATURATION ABOVE 92%. RESTING QUIETLY IN BED. NO OTHER EPISODES OF COFFEE GROUND EMESIS SINCE ADMISSION. OSTOMY CONTINUES TO PRODUCE DARK MAROON LIQUID. NS INFUSING AT 200 MLS/HR. POWERGLIDE PLACED TO BUSTER OVERNIGHT. NO OTHER SIGNIFICANT CHANGES SINCE PREVIOUS NOTES. WILL REPORT TO DAY SHIFT RN.
[2021-11-15 08:58] LABS: BASOPHILS ABSOLUTE AUTO 0.05 K/mm3 (0.00-0.23); BASOPHILS PERCENT AUTO 0 % (0-2); EOSINOPHILS ABSOLUTE AUTO 0.01 K/mm3 (0.00-0.68); EOSINOPHILS PERCENT AUTO 0 % (0-6); Hematocrit 36.3 % (37.0-53.0); Hemoglobin 12.3 g/dL (13.5-17.5); IMMATURE GRAN ABSOLUTE AUTO 0.22 K/mm3 (0.00-0.10); IMMATURE GRAN PERCENT AUTO 1 % (0-1); LYMPHOCYTES ABSOLUTE AUTO 0.56 K/mm3 (0.84-5.20); LYMPHOCYTES PERCENT AUTO 2 % (21-46); MONOCYTES ABSOLUTE AUTO 1.66 K/mm3 (0.16-1.47); MONOCYTES PERCENT AUTO 6 % (4-13); Mean Corpuscular HGB 29.4 pg (26.0-34.0); Mean Corpuscular HGB Conc 33.9 g/dL (31.5-36.5); Mean Corpuscular Volume 87 fL (80-100); Mean Platelet Volume 10.6 fL (9.1-12.4); NEUTROPHILS ABSOLUTE AUTO 27.55 K/mm3 (1.96-9.15); NEUTROPHILS PERCENT AUTO 92 % (41-73); Platelet Count 178 K/mm3 (150-400); RDW Coefficient Variation 15.6 % (11.7-14.2); Red Blood Cell Count 4.19 M/mm3 (4.30-5.90); White Blood Cell Count 30.05 K/mm3 (4.00-11.30)
--- NOTE | 2021-11-15 10:58 | NUR ---
PT TO DAY SURGERY FOR EGD.
--- NOTE | 2021-11-15 11:25 | NUR ---
11/15/21 1125 Kang Finn PATIENT DETERMINED TO BE ASA APPROPRIATE FOR PROPOFOL SEDATION PRIOR TO START OF PROCEDURE BY DR. ALDANA Bite Block Placed. 3-LEAD EKG REVIEWED WITH PHYSICIAN PRIOR TO START OF PROCEDURE.Patient to ENDO 1. 3-LEAD EKG REVIEWED WITH PHYSICIAN PRIOR TO START OF PROCEDURE. MONITOR INTACT WITH CONTINUOUS PULSE OXIMETRY AND INTERMITTENT BP. O2 VIA N/C INTACT THROUGHOUT SEDATION/PROCEDURE.
[2021-11-15 15:56] LABS: Hemoglobin 11.4 g/dL (13.5-17.5)
--- NOTE | 2021-11-15 16:18 | NUR ---
PER TELE PT HAD RUN OF SVT; VSS REMAIN STABLE; NOTIFIED DR SOSA, NO NEW ORDERS. WILL CONTINUE TO MONITOR.
--- NOTE | 2021-11-15 17:38 | NUR ---
PT GIVEN SIPS OF WATER WITH AND WITHOUT STRAW; WHEN LIQUID IN MOUTH, PT EYES OPEN WIDE AND HE HOLDS THE LIQUID IN MOUTH UNTIL REPEATLY DIRECTED TO SWALLOW. SAME WITH WARM LIQUIDS FROM TRAY. NOTIFIED DR SOSA, NEW ORDER FOR NPO AND ST EVAL.
[2021-11-16 04:45] LABS: BASOPHILS ABSOLUTE AUTO 0.04 K/mm3 (0.00-0.23); BASOPHILS PERCENT AUTO 0 % (0-2); EOSINOPHILS PERCENT AUTO 0 % (0-6); Hematocrit 33.3 % (37.0-53.0); Hemoglobin 11.3 g/dL (13.5-17.5); IMMATURE GRAN ABSOLUTE AUTO 0.28 K/mm3 (0.00-0.10); IMMATURE GRAN PERCENT AUTO 1 % (0-1); LYMPHOCYTES ABSOLUTE AUTO 0.57 K/mm3 (0.84-5.20); LYMPHOCYTES PERCENT AUTO 2 % (21-46); MONOCYTES PERCENT AUTO 3 % (4-13); Mean Corpuscular HGB 29.8 pg (26.0-34.0); Mean Corpuscular HGB Conc 33.9 g/dL (31.5-36.5); Mean Corpuscular Volume 88 fL (80-100); Mean Platelet Volume 10.7 fL (9.1-12.4); NEUTROPHILS ABSOLUTE AUTO 24.94 K/mm3 (1.96-9.15); NEUTROPHILS PERCENT AUTO 94 % (41-73); Platelet Count 165 K/mm3 (150-400); RDW Coefficient Variation 16.2 % (11.7-14.2); RDW Standard Deviation 52.4 fL (35.1-46.3); Red Blood Cell Count 3.79 M/mm3 (4.30-5.90); White Blood Cell Count 26.53 K/mm3 (4.00-11.30)
[2021-11-16 05:04] LABS: Albumin, Blood 1.8 g/dL (3.4-5.0); Albumin/Globulin Ratio 0.5 (0.8-1.8); Bilirubin, Total 0.3 mg/dL (0.1-1.0); Bun/Creatinine Ratio 24.7 (12.0-20.0); Calcium, Blood 8.2 mg/dL (8.5-10.1); Creatinine, Blood 3.73 mg/dL (0.60-1.20); Globulin, Blood 3.3 g/dL (2.2-4.0); Magnesium, Blood 2.3 mg/dL (1.6-2.4); Phosphorus, Blood 6.3 mg/dL (2.5-4.9); Potassium, Blood 3.4 mmol/L (3.5-5.5); Total Protein, Blood 5.1 g/dL (6.4-8.2)
--- NOTE | 2021-11-16 06:29 | NUR ---
SHIFT SUMMARY PATIENT IS AN IRRITABLE MAN WHO IS A&OX3 AND FORGETFUL. GENERALIZED WEAKNESS NOTED. IS VERY SENSITIVE TO ANY TOUCH AND WILL HOLLER OUT WHEN TURNING AND DOING VITALS. NO OBVIOUS SOURCES OF PAIN. VSS. ON 2L O2 FOR SLEEP BUT RARELY KEEPS IT ON. NSR ON THE MONTIOR. NPO UNTIL SPEECH EVAL DONE TODAY. ICE CHIPS GIVEN SPARINGLY. OSTOMY WITH LITTLE OUTPUT. RIOS PATENT DRAINING TO GRAVITY WITH GOOD OUPUT. Q2H TURNS AND ORAL CARE. BLOOD NOTED FROM RECTUM AND FRESH BRIEF NOW IN PLACE. NO ACUTE CONCERNS AT THIS TIME. WILL CONTINUE PLAN OF CARE UNTIL REPORT GIVEN TO GENE RN.
[2021-11-16 16:15] LABS: Hematocrit 31.9 % (37.0-53.0); Hemoglobin 10.9 g/dL (13.5-17.5)
--- NOTE | 2021-11-16 17:46 | NUR ---
SHIFT SUMMARY PT A&Ox2; IRRITABLE AND ANXIOUS T/O SHIFT. PT RESTING IN BED DUIRNG SHIFT, REPOSITIONED Q2 FOR COMFORT/PRESSURE ULCER PREVENTION. PT REPROTS PAIN TO ABD, MEDICATED x1 WITH FENTNYL WITH POSITIVE RESULTS. PT REPORTS NAUSEA, MEDICATED x2 WITH SCHEDULE ZOFRAN. PT DENIES CHEST PAIN, SOB AND DIZZINESS. COLOSTOMY CONTINUES TO PUT OUT DARK MUCUS/LIQUIDS; RED BLOOD PER RECTUM NOTED ON BRIEFS THIS AM AND AFTERNOON. PT RECEIVING IV FLUIDS AND ANTIBIOTICS. RESTARTED ON CLEAR LIQUID DIET. VSS. NO OTHER ACUTE CHANGES NOTED DURING SHIFT. WILL CONTINUE TO MONITOR UNTIL REPORT GIVEN TO ONCOMING RN.
[2021-11-17 04:28] LABS: BASOPHILS ABSOLUTE AUTO 0.02 K/mm3 (0.00-0.23); BASOPHILS PERCENT AUTO 0 % (0-2); EOSINOPHILS ABSOLUTE AUTO 0.02 K/mm3 (0.00-0.68); EOSINOPHILS PERCENT AUTO 0 % (0-6); Hematocrit 30.6 % (37.0-53.0); Hemoglobin 10.4 g/dL (13.5-17.5); IMMATURE GRAN ABSOLUTE AUTO 0.15 K/mm3 (0.00-0.10); IMMATURE GRAN PERCENT AUTO 1 % (0-1); LYMPHOCYTES ABSOLUTE AUTO 0.62 K/mm3 (0.84-5.20); LYMPHOCYTES PERCENT AUTO 4 % (21-46); MONOCYTES ABSOLUTE AUTO 0.59 K/mm3 (0.16-1.47); MONOCYTES PERCENT AUTO 4 % (4-13); Mean Corpuscular HGB 29.8 pg (26.0-34.0); Mean Corpuscular Volume 88 fL (80-100); Mean Platelet Volume 10.4 fL (9.1-12.4); NEUTROPHILS ABSOLUTE AUTO 15.61 K/mm3 (1.96-9.15); NEUTROPHILS PERCENT AUTO 92 % (41-73); Platelet Count 120 K/mm3 (150-400); RDW Coefficient Variation 16.8 % (11.7-14.2); RDW Standard Deviation 53.6 fL (35.1-46.3); Red Blood Cell Count 3.49 M/mm3 (4.30-5.90); White Blood Cell Count 17.01 K/mm3 (4.00-11.30)
[2021-11-17 04:41] LABS: Albumin, Blood 1.5 g/dL (3.4-5.0); Anion Gap 8 mmol/L (6-16); Blood Urea Nitrogen 68 mg/dL (8-24); Bun/Creatinine Ratio 26.8 (12.0-20.0); CO2, Blood 15 mmol/L (21-32); Calcium, Blood 7.9 mg/dL (8.5-10.1); Chloride, Blood 125 mmol/L (98-108); Creatinine, Blood 2.54 mg/dL (0.60-1.20); Glomerular Filtration Rate 25 (60-); Glucose, Blood 118 mg/dL (70-99); Phosphorus, Blood 3.4 mg/dL (2.5-4.9); Potassium, Blood 3.1 mmol/L (3.5-5.5); Sodium, Blood 148 mmol/L (136-145)
--- NOTE | 2021-11-17 06:27 | NUR ---
SHIFT SUMMARY PATIENT IS AN IRRITABLE MAN WHO IS A&OX3 AND FORGETFUL. BOUTS OF ANGER WITH STAFF WHEN TOLD HE IS CONFUSED. GEN WEAKNESS NOTED. IS VERY SENSITIVE TO ANY TOUCH AND WILL OUT WITH TURNS AND VITALS. FENT GIVEN X1 FOR PAIN. VSS. ON RA ALL NIGHT. NSR ON THE MONITOR. TOLERATING CLD WITHOUT ISSUE. OSTOMY CHANGED IT CAME LOOSE AND WAS LEAKING. RIOS PATENT DRAINING TO GRAVITY WITH GOOD OUTPUT. Q2H TURNS. BLOOD STILL FROM RECTUM AND BRIEF IN PLACE. SEEMS TO BE SLOWING DOWN. IV FLUIDS STILL RUNNING 200 ML/HR. WILL CONTINUE PLAN OF CARE UNTIL REPORT GIVEN TO DAYSHIFT RN.
[2021-11-17 16:20] LABS: Hematocrit 31.6 % (37.0-53.0); Hemoglobin 10.7 g/dL (13.5-17.5)
--- NOTE | 2021-11-17 18:16 | NUR ---
SHIFT SUMMARY PT A&Ox2, ANXIOUS AND IRRITABLE AT TIMES. PT UP WALKING IN HALLS WITH PHYSICAL THERAPY WITH WALKER AND GAIT BELT, UP IN CHAIR FOR LUNCH. PT DENIES PAIN, CHEST PAIN, SOB AND NAUSEA T/O SHIFT. PT RECEIVING SCHEDULE ANTIEMETIC. ON TELE STRIPS QTc APPEARS TO INCREASE, NOTIFIED NEW ORDER FOR EKG, PLACED NEW ORDERS. PT RECIVING IV ANTIBIOTICS. BLADDER TRAINED, PT STATES HE FELT LIKE HE NEEDED TO PEE AND DID IT, ATTENDS WET, REMOVED RIOS. VSS. NO OTHER ACUTE CHANGES NOTED DURING SHIFT. WILL CONTINUE TO MONITOR UNTIL REPORT GIVEN TO ONCOMING RN.
[2021-11-18 05:38] LABS: Hematocrit 30.9 % (37.0-53.0); Hemoglobin 10.4 g/dL (13.5-17.5)
[2021-11-18 05:56] LABS: Bun/Creatinine Ratio 24.7 (12.0-20.0); Creatinine, Blood 1.66 mg/dL (0.60-1.20); Potassium, Blood 2.9 mmol/L (3.5-5.5)
--- NOTE | 2021-11-18 06:21 | NUR ---
SHIFT SUMMARY PATIENT REMAINS INTERMITTENTLY IRRITABLE AND ANGRY WITH STAFF. ORIENTED X2-3 AND VERY FORGETFUL. GEN WEAKNESS AND PAIN WITH ANY SLIGHT TOUCH OR MOVEMENT. SEEMS TO COME ALONG WITH RETCHING/STOMACH PAIN SO PRN FENT GIVEN X2 WITH DECENT RELIEF. NO VOMITING BUT LOTS OF RETCHING THROUGH THE NIGHT. VSS. ON RA. NO TELE IN PLACE. TOLERATING CLD WITH FULL SET UP AND STAFF ASSISTANCE. MEDS IN JELLO. MET DTV AND BEEN PEEING IN URINAL OR INCONTINENT IN BRIEF. FRESH BRIEF IN PLACE AND SCANT BLOOD NOTED RECTUM. GOOD OUPUT FROM OSTOMY AND BLACK. FALL PRECAUTIONS IN PLACE. FLUIDS STILL RUNNING PER ORDER. WILL CONTINUE PLAN OF CARE UNTIL REPORT GIVEN TO DAYSHIFT RN.
--- NOTE | 2021-11-18 17:35 | NUR ---
Pt resting in bed upon arrival. Pt is pleasantly confused. A&OX2. Pt unable to verbalize place or reason for stay. Pt denies pain and dyspnea at this time. Pt tends to engage in non sensical conversation. Spoke with Pt's Primary RN Solo and discussed case. Called and spoke with Pt's sister Dain. Listened as Dain discusses events leading up to Pt's current and past hospital stays. Listened as Dain reports Pt has not been eating, does not take his medications and is no longer safe to live alone. Continued therapeutic listening and answered questions. Gentle education on disease process including trajectory. Discussed the importance of routine conversations with PCP regarding Pt's health and developing a plan for the future. Discussed the importance of planning for the potential of Pt needing a higher level of care and applying for [employer] for caregiving and placement. Dain expresses appreciation and reports no other concerns at this time. Palliative Care will remain available.
--- NOTE | 2021-11-18 18:00 | NUR ---
SHIFT SUMMARY PT HAS BEEN RESTING IN BED, QUIETLY. PT HAS BEEN COOPERATIVE WITH CARES. PT HAS MOMENTS OF CONFUSION AND INTERMITTENT NONSENSICAL SPEECH. PT HAS C/O ABDOMINAL PAIN, TREATED PER EMAR. VSS, NO CHANGES TO CURRENT CONDITION.
[2021-11-19 05:59] LABS: Anion Gap 7 mmol/L (6-16); Blood Urea Nitrogen 21 mg/dL (8-24); Bun/Creatinine Ratio 19.6 (12.0-20.0); CO2, Blood 21 mmol/L (21-32); Calcium, Blood 7.6 mg/dL (8.5-10.1); Chloride, Blood 117 mmol/L (98-108); Creatinine, Blood 1.07 mg/dL (0.60-1.20); Glomerular Filtration Rate >60 (60-); Glucose, Blood 91 mg/dL (70-99); Magnesium, Blood 1.2 mg/dL (1.6-2.4); Phosphorus, Blood 1.4 mg/dL (2.5-4.9); Sodium, Blood 145 mmol/L (136-145)
--- NOTE | 2021-11-19 06:25 | NUR ---
SHIFT SUMMARY PATIENT REMAINS INTERMITTENTLY IRRITABLE AND ANGRY WITH STAFF. ORIENTED X1-2 AND VERY FORGETFUL. GETS FRUSTRATED WITH HIS CONFUSION. GEN WEAKNESS IMPROVING BUT STILL Q2H TURNS IN BED. RETCHING/STOMACH CRAMPING EPISODE X1 AND PRN DIALUDID GIVEN WITH GOOD RELIEF. VSS. ON RA. NO TELE. TOLERATING CLD WITH FULL SET UP AND STAFF ASSISTANCE. INCONTINENT IN BRIEF AND FRESH ATTENDS IN PLACE. NO BLEEDING FROM RECTUM THIS SHIFT. LOTS OF OUTPUT FROM COLOSTOMY THAT WAS BLACKISH AND WATERY. FALL PRECAUTIONS IN PLACE. FLUIDS RUNNING PER ORDER. ELECTROLYTES OFF WITH AM LABS, AWARE, AND NEW ORDERS IN. WILL CONTINUE PLAN OF CARE
--- NOTE | 2021-11-19 18:00 | NUR ---
SHIFT SUMMARY PT HAS SLEPT OFF AND ON, ROUSED EASILY BY VOICE. PT HAS DENIED C/O PAIN, DISCOMFORT HAS BEEN ADDRESSED WITH REPOSITIONING. PT TOLERATED BEING UP IN CHAIR WELL AND AMBULATED TO THE RESTROOM WITH ASSISTANCE. PT HAD EPISODES OF CONFUSION THAT RESOLVED ON THEIR OWN. PT HAD OCCAISONAL NONSENSICAL SPEECH. VSS, NO ACUTE CHANGES TO CONDITION.
--- NOTE | 2021-11-19 20:24 | NUR ---
TRANSFER ASSUMED CARE OF PT AT 1900. PT IS BEING TRANSFERED TO MEDICAL FLOOR ROOM 308. PT IS ALERT AND ORIENTED TO SELF AND PLACE. PT MOOD IS LABILE AND GETS AGITATED EASILY. PT WAS ABLE TO TAKE PILLS WITH APPLE SAUCE BUT HAD EXTREME HEART BURN AFTERWARDS. PT HAS AN OSTOMY, STOOL IS DARK AND LIQUID. PT WAS A 1P ASSIT TO BATHROOM. PT EDUCATED ABOUT TRANSFER. AWAITING TO GIVE REPORT. CALL LIGHT IN REACH, BED IN LOWEST POSITION, BED ALARM ON.
--- NOTE | 2021-11-19 20:41 | NUR ---
TRANSFER SUMMARY REPORT GIVEN TO CARRI OCHOA. PT TRANSFERED IN WHEELCHAIR. MET NURSE AT BEDSIDE, PT TOLERATED TRANSFER WELL.
--- NOTE | 2021-11-20 02:28 | NUR ---
PT RECEIVED A TRANSFER FROM [facility]. PT ARRIVED TO THE MEDICAL FLOOR, ROOM 308 AT 2039 VIA WHEELCHAIR ACCOMPANIED BY ROSE VEGA RN FROM U. UZAIR DENTON GAVE ME REPORT PRIOR TO TRANSFER AT 2030. PT AAOX2-3, PERIODS OF CONFUSION AND GETS EASILY FRUSTRATED WITH SIMPLE INSTRUCTIONS/DIRECTIONS OR WHEN BEING ASKED A SERIES OF QUESTIONS. LABILE MOOD. PT WAS INITIALLY CALM AND PLEASANT BUT SOON BECAME FRUSTRATED AND IRRITABLE. PT ITH RUE POWERGLIDE, FLUSHES WITH EASE AND HAS + BLOOD RETURN. LAC 20G IV FLUSHED WELL, SITE BENIGN. DRESSING INTACT. PT HAS COLOSTOMY TO RIGHT SIDE OF ABDOMEN, PT WITH SOMEWHAT UNSTEADY GAIT,REQUIRES SUPERVISION WHEN OOB. BED ALARM ACTIVATED, BED IN LOW POSITION WITH THE CALL LIGHT WITHIN EASY REACH. PT ORIENTED TO THE ROOM AND CALL LIGHT FUNCTIONS. WILL CONTINUE TO MONITOR.
--- NOTE | 2021-11-20 05:01 | NUR ---
SHIFT SUMMARY ASSUMED CARE AT 2039, WHEN PT TRANSFERRED FROM [facility] 18 TO ROOM 308. PT REMAINS AAOX2, WITH CONFUSION AND LABILE MOODS. RUE POWERGLIDE DRESSING INTACT. LAC IV SITE BENIGN. RIGHT ABDOMEN COLOSTOMY. PT CONTINUES TO GET OUT OF BED WITHOUT USING CALL LIGHT TO CALL FOR ASSISTANCE DESPITE RE-EDUCATION AND REMINDERS. PT WITH UNSTEADY GAIT. BED ALARM REMAINS ACTIVATED. BED IS IN LOW POSITION WITH THE CALL LIGHT WITHIN EASY REACH. WILL CONTINUE TO MONITOR. PT HAS REFUSED TAKING HIS MEDICATION THUS FAR SINCE BEING TRANSFERRED; THIS IS NOT A NEW OCCURRANCE, PER TRANSFER REPORT, PT AT TIMES REFUSED MEDS.
--- NOTE | 2021-11-20 06:22 | NUR ---
PT IS AGITATED. PT REFUSED 0600 SCHEDULED MEDICATIONS AND ALSO REFUSED TO ALLOW ME TO DRAW HIS MORNING LABS FROM HIS POWERGLIDE. PT YELLED THAT IF HE CANNOT HAVE WANT HE WANTS RIGHT NOW, GET OUT (PT WANTED HIS BREAKFAST TRAY). EXPLAINED TO PATIENT THAT THE BREAKFAST TRAYS WOULD BE ARRIVING LATER IN THE MORNING AND OFFERED HIM COFFEE OR ANY OTHER CLEAR LIQUID. PT YELLED FOR ME TO GET OUT OF HIS ROOM.
[2021-11-20 07:56] LABS: BASOPHILS ABSOLUTE AUTO 0.02 K/mm3 (0.00-0.23); BASOPHILS PERCENT AUTO 0 % (0-2); EOSINOPHILS ABSOLUTE AUTO 0.09 K/mm3 (0.00-0.68); EOSINOPHILS PERCENT AUTO 1 % (0-6); Hematocrit 26.7 % (37.0-53.0); Hemoglobin 9.2 g/dL (13.5-17.5); IMMATURE GRAN ABSOLUTE AUTO 0.06 K/mm3 (0.00-0.10); IMMATURE GRAN PERCENT AUTO 1 % (0-1); LYMPHOCYTES PERCENT AUTO 8 % (21-46); MONOCYTES ABSOLUTE AUTO 1.03 K/mm3 (0.16-1.47); MONOCYTES PERCENT AUTO 9 % (4-13); Mean Corpuscular HGB 29.8 pg (26.0-34.0); Mean Corpuscular HGB Conc 34.5 g/dL (31.5-36.5); Mean Corpuscular Volume 86 fL (80-100); Mean Platelet Volume 9.5 fL (9.1-12.4); NEUTROPHILS ABSOLUTE AUTO 9.62 K/mm3 (1.96-9.15); NEUTROPHILS PERCENT AUTO 82 % (41-73); Platelet Count 103 K/mm3 (150-400); RDW Coefficient Variation 16.5 % (11.7-14.2); RDW Standard Deviation 51.4 fL (35.1-46.3); Red Blood Cell Count 3.09 M/mm3 (4.30-5.90); White Blood Cell Count 11.72 K/mm3 (4.00-11.30)
[2021-11-20 08:29] LABS: Anion Gap 9 mmol/L (6-16); Blood Urea Nitrogen 11 mg/dL (8-24); CO2, Blood 25 mmol/L (21-32); Chloride, Blood 109 mmol/L (98-108); Creatinine, Blood 0.85 mg/dL (0.60-1.20); Glomerular Filtration Rate >60 (60-); Glucose, Blood 100 mg/dL (70-99); Magnesium, Blood 1.3 mg/dL (1.6-2.4); Potassium, Blood 2.8 mmol/L (3.5-5.5); Sodium, Blood 143 mmol/L (136-145)
--- NOTE | 2021-11-20 16:23 | NUR ---
COLOSTOMY BAG CHANGED 11/20/21 AT 1000
--- NOTE | 2021-11-20 18:17 | NUR ---
PATIENT IS ALERT AND ORIENTED WITH INTERMITTENT CONFUSION. PATIENT IS IRRITABLE AND BECOMES FRUSTRATED WITH CARE MORE OFTEN THAN NOT. REFUSED PHYSICAL THERAPY. HE HAS BEEN INDEPENDENT IN THE ROOM THIS SHIFT. NON-SKID SOCKS ARE IN PLACE. HIS COLOSTOMY BAG WAS CHANGED THIS SHIFT. LIQUID BROWN STOOL. PATIENT EMTPIES COLOSTOMY ON HIS OWN. DIET HAS BEEN ADVANCED FROM CLEAR LIQUIDS TO FULL LIQUIDS TO SOFT FOOD. HE IS UNABLE TO CHEW UP THE MEAT SO HIS DIET WAS CHANGED TO MECHANICAL SOFT WITH GROUND MEAT STARTING TOMORROW FOR BREAKFAST. WILL LEAVE A MESSAGE FOR ST TO SEE IF THEY WILL ASSESS THE PATIENT TOMORROW. WILL CONTINUE TO MONITOR
[2021-11-21 06:36] LABS: Anion Gap 7 mmol/L (6-16); Blood Urea Nitrogen 9 mg/dL (8-24); Bun/Creatinine Ratio 11.4 (12.0-20.0); CO2, Blood 27 mmol/L (21-32); Calcium, Blood 7.3 mg/dL (8.5-10.1); Chloride, Blood 108 mmol/L (98-108); Creatinine, Blood 0.79 mg/dL (0.60-1.20); Glomerular Filtration Rate >60 (60-); Glucose, Blood 104 mg/dL (70-99); Magnesium, Blood 1.4 mg/dL (1.6-2.4); Phosphorus, Blood 1.5 mg/dL (2.5-4.9); Potassium, Blood 3.1 mmol/L (3.5-5.5); Sodium, Blood 142 mmol/L (136-145)
--- NOTE | 2021-11-21 06:45 | NUR ---
SHIFT SUMMARY PT IS A 66 Y/O MALE, ADMITTED FOR JAVIER AND UPPER GI BLEED. HE IS A&O X 2-3, IRRITABLE AT TIMES. COLOSTOMY IN PLACE, DRAINING BROWN LIQUID STOOL. NO C/O ACUTE PAIN, NAUSEA OR SOB. VITAL SIGNS STABLE. NO ACUTE CHANGES IN PT CONDITION NOTED DURING THE NIGHT. WILL CONTINUE TO MONITOR AND TREAT PER EMAR UNTIL HAND OFF TO DAY SHIFT RN.
--- NOTE | 2021-11-21 18:15 | NUR ---
SHIFT SUMMARY PT A&Ox2, CONFUSED, CONCRETE AND IRRITABLE AT TIMES. AMUBULATING IND IN ROOM. PT CARE FOR OWN OSTOMY, EMPTIED AND CHANGED BAG DURING SHIFT, REFUSING ASSISTANCE FROM STAFF. PT REPORTS PAIN IN "GUT", MEDICATED WITH SCHEDULED MEDICATIONS, NO PRN PAIN MEDICATIONS, EDCUATED PT. PT REPORTS THOART AND SWALLOWING PAIN, DR BARNETT NOTIFIED. PT DENIES CHEST PAIN, SOB, OR DIZZINESS. VSS. NO OTHER ACUTE CHANGES NOTED. DISCUSSED DISCHARGE PLANS WITH SISTER [place], THEY PREFER NOT TO DISCHARGE TO AN ADULT [facility], SHE WILL BE LOOKING FOR IN HOME CAREGIVERS AND MEMORY CARE FACILITIES THIS WEEKEND. WILL CONTINUE TO MONITOR UNITL REPORT GIVEN TO ONCOMING RN.
[2021-11-21] MEDS ORDERED: SERT100 PO (23:08)
[2021-11-21] MEDS ORDERED: ZOLP5 PO (23:09)
[2021-11-21] MEDS ORDERED: DULO30 PO (23:10)
[2021-11-21] MEDS ORDERED: METO50ER PO (23:11)
[2021-11-21] MEDS ORDERED: VITAMIN B-1100 M1 PO (23:12)
--- NOTE | 2021-11-22 06:04 | NUR ---
SHIFT SUMMARY PT IS A 66 Y/O MALE, ADMITTED FOR JAVIER AND UPPER GI BLEED. HE IS A&O X 2-3, FORGETFUL AT TIMES. PT CAN BE VERY IRRITABLE AND CUSSES AT STAFF, ESPECIALLY WHEN WOKEN UP. NO C/O ACUTE PAIN, NAUSEA OR SOB. REFUSED 0000 AND 0600 MEDS. VITAL SIGNS STABLE. NO ACUTE CHANGES IN PT CONDITION NOTED DURING THE NIGHT. WILL CONTINUE TO MONITOR AND TREAT PER EMAR UNTIL HAND OFF TO DAY SHIFT RN.
--- NOTE | 2021-11-22 09:51 | NUR ---
PT REFUSING ALL MORNING MEDICATIONS AT THIS TIME. PT C/O ABD PAIN AND SAYS THAT HE IS UNABLE TO GET HIS MEDICATIONS DOWN. THIS RN EXPLAINED TO THE PT THAT MANY OF THE MEDICATIONS MAY HELP HIS ABD PAIN. PT STATED THAT HE IS AWARE OF THIS AND THAT HE HAS HAD THESE MEDICATIONS BEFORE. DESPITE KNOWING THAT THEY MAY HELP HIM HE DOES NOT WANT TO TAKE THEM AT THIS TIME. WILL OFFER MEDICATIONS AGAIN AT A DIFFERENT TIME.
--- NOTE | 2021-11-22 18:28 | NUR ---
SHIFT SUMMARY PT A/O X2 AND IRRITABLE/EASILY FRUSTRATED AT TIMES. PT REPORTS ABD PAIN FREQUENTLY T/O THE DAY BUT REFUSED HIS MORNING MEDICATIONS. AGREEABLE TO TAKING MEDICATION AT LATER POINTS IN THE DAY. HE STATED THAT HE KNOWS THAT THE MEDICATION WILL HELP HIS ABD PAIN BUT STILL DID NOT WANT TO TAKE IT. OSTOMY BAG CHANGED AND THE PT SHOWERED. AWAITING PLACEMENT. WILL REPORT TO GABY DUNNE.
--- NOTE | 2021-11-23 06:50 | NUR ---
SHIFT SUMMARY PT IS A 66 Y/O MALE, ADMITTED FOR JAVIER AND UPPER GI BLEED. HE IS A&O X 2, CONFUSED AT TIMES, VERY AGITATED AND CURSES AT STAFF AT TIMES. REFUSES SOME CARE. INDEPENDENT IN HIS ROOM. NO C/O ACUTE PAIN, NAUSEA OR SOB. VITAL SIGNS STABLE. THIS AM, THIS RN WENT INTO THE ROOM TO CHECK ON THE PT AND FOUND PT'S OSTOMY APPLIANCE IN THE BATHROOM GARBAGE, AND FLOOR WAS COVERED IN WATER. WHEN PT WAS WOKEN, OSTOMY SITE WAS ASSOCIATE FINANCIAL REPRESENTATIVE AND LEAKING SMALL AMOUNT OF STOOL. OSTOMY APPLIANCE WAS REPLACED, ALTHOUGH PT REFUSED TO HAVE THE SKIN AROUND THE SITE CLEANED. NO OTHER ACUTE CHANGES IN PT CONDITION NOTED DURING THE NIGHT. WILL CONTINUE TO MONITOR AND TREAT PER EMAR UNTIL HAND OFF TO DAY SHIFT RN.
--- NOTE | 2021-11-23 08:00 | NUR ---
PT IRRITABLE, DISAGREEABLE, ARGUEMENTATIVE. UNCOOPERATIVE WITH CARE AND ASSESSMENT. H/R REG, NO MURMER NOTED. NO TELE. LUNGS CLEAR, RESP EASY, UNLABORED. ON R.A. BT UNABLE TO ASSESS. DID NOT ALLOW ME TO OBSERVE HIS COLOSTOMY. AMBULATES SELF TO BATHROOM. DID FINALLY ALLOW ME TO GIVE PILLS. STATES NO REAL PAIN. STATES READY TO LEAVE HOSP. DONE WITH THIS PLACE. STATES NOT REMEMBERING WHY HERE, NOT REMEMBERING HAS HAD BLOODY EMESIS. STATES NONE NOW. BED IN LOW POSITION, CALL LITE IN REACH, CALLS APPROP
--- NOTE | 2021-11-23 17:41 | NUR ---
PT CONTINUES TO BE IRRITABLE, ANGRY, DISAGREEABLE TO STAFF. YELLS AT STAFF TO LEAVE ROOM. DOES OCC SPIT OUT SOME PILLS. UNKNOWN WHICH. AMBULATES SELF TO BATHROOM. REFUSED TO HAVE US CHECK HIS COLOSTOMY BAG. STATES HE SELF CARES. LATER THIS AFT, IT BLEW OFF. BLAMED US. RECLEANED BEST HE WOULD ALLOW. HE REFUSING TO ALLOW IT TO BE CLEANED MUCH COULD BE. THREATENED TO HIT SAMPLE STITCHER AND ME DURING CHANGE. ADVISED IS A POOR DECISION, AND WOULD BE RESTRAINED IF ATTEMPTS TO HIT ANY STAFF. CLEANED HIS OSTOMY STAFF MUCH COULD AND REPLACED BY SAMPLE STITCHER. OFFERED TO CHANGE OR GIVE ASSISTANCE NEED. MORE YELLING . LEFT ROOM. BED IN LOW POSITION, CALL LITE IN REACH.
--- NOTE | 2021-11-23 19:11 | NUR ---
RECEIVED REPORT AND ASSUMED CARE OF PT. HE IS LYING IN BED WITH HIS EYES CLOSED, RESPIRATIONS EVEN AND UNLABORED, CALL LIGHT IN REACH. TM.
--- NOTE | 2021-11-24 05:16 | NUR ---
SHIFT SUMMARY: JAYLEEN IS ALERT AND ORIENTED X2. HE DOES NOT USE THE CALL LIGHT. WATER HAS BEEN FOUND ON HIS FLOOR X 2 THIS SHIFT. PT UNABLE TO ADEQUATELY VERBALIZE WHERE THE WATER HAD COME FROM, STATED THAT THERE WAS A "LEAK". WET CLOTHES FOUND IN BATHROOM AND BASIN SUGGESTIVE THAT PT MAY HAVE BEEN ATTEMPTING TO WASH HIS CLOTHES BY HAND. HE HAS REFUSED ASSISTANCE WITH HIS OSTOMY. HE DID ALLOW A LAB DRAW FROM THE POWERGLIDE THIS AM. INITIALLY, HE STATED THAT HE WANTED TO TAKE HIS MEDICATIONS, BUT REFUSED TO SWALLOW THEM, STATING "PUT IT DOWN". HE ALSO STATED "I JUST WANT TO GET OUT OF HERE". HE HAS BEEN SOMEWHAT COOPERATIVE THIS SHIFT, BUT DOES BECOME AGITATED RAPIDLY WHEN STAFF ATTEMPTS TO GIVE ASSISTANCE OR PROVIDE CARE. HE IS LYING IN BED WITH THE CALL LIGHT IN REACH. WILL REPORT TO DAY SHIFT RN.
--- NOTE | 2021-11-24 06:12 | NUR ---
AM MEDICATIONS FOUND ON BEDSIDE TABLE, PT SLEEPING. MEDICATION REMOVED FROM ROOM AND PLACED IN WASTE CONTAINER IN [facility] ROOM WITH UZAIR ADAMS WITNESS.
[2021-11-24 06:24] LABS: Anion Gap 6 mmol/L (6-16); Blood Urea Nitrogen 9 mg/dL (8-24); Bun/Creatinine Ratio 13.4 (12.0-20.0); CO2, Blood 31 mmol/L (21-32); Calcium, Blood 7.7 mg/dL (8.5-10.1); Chloride, Blood 106 mmol/L (98-108); Creatinine, Blood 0.67 mg/dL (0.60-1.20); Glomerular Filtration Rate >60 (60-); Glucose, Blood 94 mg/dL (70-99); Potassium, Blood 3.5 mmol/L (3.5-5.5); Sodium, Blood 143 mmol/L (136-145)
--- NOTE | 2021-11-24 18:05 | NUR ---
SUMMARY- PT ALERT TO SELF- AMBULATORY INDEPENDANT IN ROOM AND STEADY ON FEET. VERBAL AND INTERACTIVE BUT RESISTANT TO NURSING INTERVENTION. TOOK MEDS IN APPLESAUCE, REFUSED CAREFATE AT LUNCH. TOLERATING FOOD AND FLUIDS. TENDS TO OWN COLOSTOMY. INTERACTIVE WITH STAFF TODAY WITH NO OUTBURSTS- HAD A FEW CIVIL CONVERSATIONS ABOUT HIS LIFE AND SEEMED TO APPRECIATE TALKING.
--- NOTE | 2021-11-25 10:31 | NUR ---
PT GOT UP TO SHOWER ON OWN AND REMOVED OSTOMY. HE ALSO GOT INTO THE SHOWER WITHOUT GETTING HIS IV AND POWERGLIDE COVERED. BOTH FORMS OF IV ACCESS ARE NO LONGER PATENT. PT REFUSED TO HAVE THIS RN REMOVE HIS IV OR POWERGLIDE. WILL REAPPROACH PT LATER WHEN HE IS MORE CALM. PT REFUSED MORNING MEDICATIONS WELL. OSTOMY BAG CHANGED AT THIS TIME.
--- NOTE | 2021-11-25 11:47 | NUR ---
PT'S IV NO LONGER PATENT DUE TO IT GETTING WET IN THE SHOWER. PT REFUSED REMOVAL OF THE IV AT THIS TIME.
--- NOTE | 2021-11-25 17:17 | NUR ---
SHIFT SUMMARY PT A/O X2 AND VERY IRRITABLE AT TIMES. PT HAS REFUSED THE MAJORITY OF HIS MEDICATIONS TODAY AND REQUESTS TO BE LEFT ALONE. TOOK A SHOWER WITH HIS IV'S UNCOVERED AND REFUSED TO HAVE THEM REMOVED. WAS ABLE TO REMOVE THE IV BUT THE PT BECAME VIOLENT WHEN TRYING TO REMOVE THE POWERGLIDE. WILL TRY AGAIN LATER. PT IS AWAITING PLACEMENT AT A MEMORY CARE FACILITY.
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
--- NOTE | 2021-11-26 06:41 | NUR ---
PT refused AM meds. Dressed laying in bed PT initally says he will take meds then he declines several times. Have been unable to pull powerglide IV access PT keeps arms covered.
--- NOTE | 2021-11-26 18:28 | NUR ---
POST OP RETURN PATIENT RETURNED FROM SURGERY AT 1630. REPORT WAS RECIEVED FROM SURGERY STAFF. GAVIN WAS PLACED BACK INTO HIS ROOM, VITALS WERE TAKEN, PATIENT WAS PROVIDED WITH CRACKERS AND SODA-WHICH HE TOLERATED WELL. PATIENT WAS ALERT AND ORIENTATED BUT GROGGY. HE HAD NO COMPLAINTS OF PAIN.
--- NOTE | 2021-11-26 18:40 | NUR ---
PATIENT HAD PAIN THROUGHOUT THE SHIFT. HE REFUSED MOST MEDICATION, BUT DID TAKE ULTRAM X 2 DURING THIS SHIFT. HE ALLOWED NURSES TO PLACE A FETANYL PATCH. THESE SEEMED TO DULL THE PAIN. PATIENT WAS ABLE TO EAT SOME PIE THAT FRIENDS PROVIDED- HE FIRST TRIED TO EAT THE PIE WITH FOLDED TABLET PAPER- HE WAS GIVEN WITH A SPOON INSTEAD-PATIENT IS CONFUSED. SISTER CALLED AND WAS GIVEN AN UPDATE. FAMILY IS RECEPTIVE OF HOSPICE OR HOME HEALTH.
[2021-11-27 02:19] LABS: Alanine Aminotransfer (ALT/SGP 30 U/L (12-78); Albumin, Blood 2.6 g/dL (3.4-5.0); Albumin/Globulin Ratio 0.8 (0.8-1.8); Alk Phos 95 U/L (50-136); Anion Gap 10 mmol/L (6-16); Aspartate Aminotrans (AST/SGOT 21 U/L (12-37); Bilirubin, Total 0.4 mg/dL (0.1-1.0); Blood Urea Nitrogen 10 mg/dL (8-24); Bun/Creatinine Ratio 15.8 (12.0-20.0); CO2, Blood 26 mmol/L (21-32); Calcium, Blood 8.1 mg/dL (8.5-10.1); Chloride, Blood 105 mmol/L (98-108); Creatinine, Blood 0.63 mg/dL (0.60-1.20); Globulin, Blood 3.3 g/dL (2.2-4.0); Glomerular Filtration Rate >60 (60-); Glucose, Blood 118 mg/dL (70-99); Potassium, Blood 4.1 mmol/L (3.5-5.5); Sodium, Blood 141 mmol/L (136-145); Total Protein, Blood 5.9 g/dL (6.4-8.2)
[2021-11-27 02:32] LABS: BASOPHILS ABSOLUTE AUTO 0.01 K/mm3 (0.00-0.23); BASOPHILS PERCENT AUTO 0 % (0-2); EOSINOPHILS ABSOLUTE AUTO 0.01 K/mm3 (0.00-0.68); EOSINOPHILS PERCENT AUTO 0 % (0-6); Hematocrit 28.2 % (37.0-53.0); Hemoglobin 9.2 g/dL (13.5-17.5); IMMATURE GRAN ABSOLUTE AUTO 0.06 K/mm3 (0.00-0.10); IMMATURE GRAN PERCENT AUTO 1 % (0-1); LYMPHOCYTES ABSOLUTE AUTO 0.67 K/mm3 (0.84-5.20); LYMPHOCYTES PERCENT AUTO 8 % (21-46); MONOCYTES ABSOLUTE AUTO 0.88 K/mm3 (0.16-1.47); MONOCYTES PERCENT AUTO 10 % (4-13); Mean Corpuscular HGB 29.4 pg (26.0-34.0); Mean Corpuscular HGB Conc 32.6 g/dL (31.5-36.5); Mean Corpuscular Volume 90 fL (80-100); Mean Platelet Volume 9.4 fL (9.1-12.4); NEUTROPHILS PERCENT AUTO 82 % (41-73); Platelet Count 276 K/mm3 (150-400); RDW Coefficient Variation 15.8 % (11.7-14.2); RDW Standard Deviation 51.8 fL (35.1-46.3); Red Blood Cell Count 3.13 M/mm3 (4.30-5.90); White Blood Cell Count 8.83 K/mm3 (4.00-11.30)
--- NOTE | 2021-11-27 02:38 | NUR ---
PT'S MENTATION HAS DECLINED THIS EVENING. PER SEWER DIGGER THIS EVENING, WHO HAS HAD PT FOR THE LAST FEW NIGHTS, PT'S MENTATION HAS SIGNIFICANTLY CHANGED. PT IS VERY CONFUSED TONIGHT. UNABLE TO FOLLOW DIRECTIONS OR ANSWER QUESTIONS. JUST YELLING OUT HELP AND SAYING "NO" OR "I DONT KNOW" TO ANY QUESTION ASKED. WILL NOT SWALLOW PILLS. SCREAMS THE ENTIRE TIME CARE IS PROVIDED AND BECAME COMBATIVE WITH STAFF. PULLED OFF OSTOMY AND SPREAD STOOL EVERYWHERE. PT CLEANED AND OSTOMY APPLIANCE REAPPLIED. SKIN SURROUNDING STOMA RED FROM APPLIANCE BEING RIPPED OFF AND FROM SKIN CLEANING. NEW ORDER FOR CBC AND CHEM PANEL. MULTIPLE STAFF NEEDED TO GET LAB DRAW. BLADDER SCAN DONE, ONLY READING 121 MLS. PT MAKING WRETCHING SOUNDS IF HE IS NAUSEATED. DENIES WHEN ASKED BUT DIFFICULT TO TELL IF PT IS UNDERSTANDING THE QUESTION. REFUSED SCHEDULED PHENERGAN. NO IV ACCESS ON PT. DISCOVERED THAT PT HAD A NEW ONE TIME ORDER FOR A FENTANYL PATCH THAT HAD BEEN PLACED ON PT ON DAY SHIFT. NOTIFIED DR. JUAREZ OF CHANGES AND OF NEW MEDICATION. FENTANYL PATCH REMOVED.
--- NOTE | 2021-11-27 04:35 | NUR ---
PT HAS BECOME INCREASINGLY CONFUSED AND AGITATED. JUST YELLS OUT CONSTANTLY. MOSTLY SAYING "OKAY", "COME ON", "OH NO", AND "PLEASE HELP". NOT REDIRECTABLE AT ALL. WILL NOT ANSWER QUESTIONS. NOTIFIED DR. JUAREZ. NEW ORDER FOR 3 MG IM HALDOL Q 6 PRN. GAVE TO PT WITH NO EFFECT. CALLED DR. JUAREZ BACK WITH NEW ORDERS FOR 1 MG IM ATIVAN X 1 WITH A REPEAT 1 MG IM IF FIRST DOSE IS NOT EFFECTIVE. AWAITING PHARMACY VERIFICATION. PT HAD TO BE PLACED IN A ALIS. PT ROLLING AROUND IN THE BED AND YELLING. ROLLING SO HARD THAT HE IS STARTING TO RIP ALIS VEST. MULTIPLE OLD SKIN TEARS REOPENED ON ARM. ATTEMPTED TO REDRESS. NEW ORDER FOR CT OF HEAD IF PT CAN CALM ENOUGH TO TOLERATE.
--- NOTE | 2021-11-27 05:49 | NUR ---
SHIFT SUMMARY PT VERY CONFUSED THIS EVENING. INITIALLY REFUSING MEDICATIONS AND YELLING AT STAFF TO "GET THE F OUT". THE NIGHT PROGRESSED CONFUSION WORSENED. PT UNABLE TO FOLLOW DIRECTIONS AT ALL. DOES NOT APPEAR TO BE COMPREHENDING WHAT IS SPOKEN TO HIM. YELLS OUT CONSTANTLY. SEE PREVIOUS NOTES. PT FINALLY CALMED AFTER 1 MG IM ATIVAN. ALIS VEST PLACED. FENTANYL PATCH REMOVED FROM R SHOULDER. COLOSTOMY APPLIANCE CHANGED DUE TO PT RIPPING IT OFF. PT REMAINED ON RA. WOULD NOT SWALLOW PILLS. PT SLEEPING AT THIS TIME. WILL CONTINUE TO MONITOR.
--- NOTE | 2021-11-27 12:39 | NUR ---
REFUSES BREAKFAST AND LUNCH. SWEARS AT STAFF TO LEAVE HIM ALONE. STOOD FOR USE OF URINAL.
--- NOTE | 2021-11-27 14:40 | NUR ---
Received call from Pt's Primary RN reporting Pt's sister (ANTOINETTE) is requesting a PC call. Pt experiencing significant agitation and refusing care. Spoke with Dr Castañeda and reviewed plan of care. Pt not eating and refusing to take his medications and to accept care. Pt resting in bed with his eyes closed and in ALIS Vest. Pt left undisturbed at this time. Called and left message with Pt's sister Dain with request for return phone call. Palliative Care will remain available.
--- NOTE | 2021-11-27 18:25 | NUR ---
ALERT TO SELF. REMAINS IN ALIS VEST. REFUSES FOOD AND CARE. DID STAND PATIENT ONCE FOR URINAL. SAYS "COME ON", "NO" AND SWEARS WHEN STAFF IN ROOM. UNLABORED RESPIRATIONS. NO IV ASSESS. LITTLE OUTPUT COLOSTOMY. WCTM
--- NOTE | 2021-11-27 19:08 | NUR ---
PATIENT LETS THIS RN EMPTY OSTOMY. SET PATIENT UP IN BED TO ASSIST WITH FEEDING. DRINKS ENSURE AND HAS SOME GROUND MEAT WITH GRAVY. FLIGHT INSPECTOR IN TO ASSIST WITH FEEDING. REPORT TO HAIR CUTTER
--- NOTE | 2021-11-28 04:11 | NUR ---
VITAL SIGNS INCOMPLETE PT AGITATED AND COMBATIVE. REFUSED FURTHER VITAL SIGN ASSESSMENT
--- NOTE | 2021-11-28 06:05 | NUR ---
SHIFT SUMMARY PATIENT ALERT AND ORIENTED TO SELF. CONFUSED, REFUSED MEDS. VERY RESISTANT TO CARE AND IS COMBATIVE, THREATENING TO STAFF. REMAINS IN ALIS DUE TO CONFUSION AND HIGH FALL RISK. BED IN LOWEST POSITION WITH WHEELS LOCKED AND ALARM ON. CALL LIGHT WITHIN REACH. REPORT GIVEN TO ONCOMING RN.
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
--- NOTE | 2021-11-29 06:35 | NUR ---
SHIFT SUMMARY PATIENT ALERT AND ORIENTED TO SELF ONLY. UNABLE TO BE REDIRECTED OR FOLLOW DIRECTIONS. PATIENT WAS EXTREMELY COMBATIVE WITH ANY CARE INTERVENTIONS, CURSING, KICKING, HITTING, THREATENING, AND SCRATCHING AT STAFF. NO ACUTE ISSUES NOTED. PATIENT CONTINUES IN RESTRAINTS DUE TO BEHAVIORS. BED IN LOWEST POSITION WITH WHEELS LOCKED AND ALARM ON. CALL LIGHT WITHIN REACH. REPORT GIVEN TO ONCOMING RN.
--- NOTE | 2021-11-29 17:00 | NUR ---
SHIFT SUMMARY PT AOX2; ON MITTS AN VEST RESTRAINTS DUE TO COMBATIVENESS AND PULLING OSTOMY. RESTRAINT MANAGEMENT PER PROTOCOL. PT IS PUTTING SO MUCH LIQUID OUTPUT TODAY IN HIS OSTOMY. HE REFUSED MEALS, AND REFUSED TO DRINK. PT IS VERY AGGRESIVE WHEN CHANGING HIM. PT SISTER ALONZO CAME IN TODAY, SHE STATED THAT SHE IS CONFUSED ABOUT DECISION MAKING OF PUTTING HIM IN HOSPICE. SHE STATED THAT SHE WILL CALL THE PALLIATIVE TO GET MORE ANSWERS ABOUT HOSPICE CARE. BED IS IN THE LOWEST POSITION AND CALL LIGHT WITHIN REACH
--- NOTE | 2021-11-30 06:50 | NUR ---
SHIFT SUMMARY PATIENT ALERT AND ORIENTED TO SELF. CONTINUES IN ALIS AND BILATERAL MITTS. HAD NO COMPLAINTS OF PAIN OR SHORTNESS OF BREATH. CHANGED OSTOMY APPLIANCE. PATIENT PLEASANT, COOPORATIVE AND CONVERSING WITH STAFF THIS MORNING. DRANK WATER WHEN OFFERED TO HIM, DENIED WANTING ANYTHING TO EAT. BED IN LOWEST POSITION WITH WHEELS LOCKED AND ALARM ON. CALL LIGHT WITHIN REACH. REPORT GIVEN TO ONCOMING RN.
--- NOTE | 2021-11-30 18:29 | NUR ---
SHIFT SUMMARY PT AXO TO SELF ONLY. RESTRAINTS IN PLACE AND ASSESSED PER PROTOCOL. VSS. PT CONTINUES TO BE IRRITABLE AND AGGITATED WITH TURNING AND ATTENS CHANGES. COLOSTOMY WNL, DRAINING LARGE AMOUNT BROWN LIQUID STOOL AND GAS. PO INTAKE OF WATER FAIR WHILE INTAKE OF FOOD IS POOR. PT REFUSED MOST OF EACH MEAL. DR JUNIOR CONSULT TODAY, SEE NOTE AND ORDERS FOR CHANGES TO MEDICATIONS. NO OTHER CHANGES. BED IN LOW POSITION, CALL LIGHT WITHIN REACH.
--- NOTE | 2021-11-30 21:49 | NUR ---
MOVED PATIENT TO ROOM 349 WHERE CAMERA CAN BE UTILIZED. PATIENT HAD LEGS THROUGH UPPER RAIL JUST 5 MINUTES AFTER BEING ASSESSED. WHEN THIS RN TRIED TO ASSESS HIM, HE BEGAN SWEARING AND SWINGING ARMS IN ATTEMPT TO HIT THE STAFF. PATIENT CURRENTLY WEARING ALIS VEST, MITTS AND FOUR RAILS. AFTER ARRIVING TO HIS NEW ROOM, PATIENT REFUSED BOTH OF HIS HS PO MEDS AND TOLD THIS RN AND THE BEAUTY CULTURIST TO "F" OFF AND GET OUT OF HIS ROOM. 15 MINUTES LATER, PATIENT STILL YELLING IN ROOM AND THREATENING STAFF IF THEY COME IN. IM ZYPREXA GIVEN WITH ASSIST OF 2 ADDITIONAL STAFF IN ATTEMPT TO CALM PATIENT.WILL CONTINUE CLOSE MONITORING
--- NOTE | 2021-12-01 03:14 | NUR ---
Patient was awake all night trying to writh himself out of the bed. Jose continues to be very verbally abusive with staff whenever attempts are made to check his briefs or change him. He did quiet slightly for about 1-2 hours after refusing his po medications at [facility] and receiving 10mg IM zyprexa. He did drink about 450 ml of apple cranberry juice overnight, but this was his only PO. arthur, mitts and [address] for safety. will continue to monitor
[2021-12-01 05:35] LABS: BASOPHILS ABSOLUTE AUTO 0.02 K/mm3 (0.00-0.23); BASOPHILS PERCENT AUTO 1 % (0-2); EOSINOPHILS ABSOLUTE AUTO 0.06 K/mm3 (0.00-0.68); EOSINOPHILS PERCENT AUTO 1 % (0-6); Hematocrit 36.1 % (37.0-53.0); Hemoglobin 11.9 g/dL (13.5-17.5); IMMATURE GRAN ABSOLUTE AUTO 0.03 K/mm3 (0.00-0.10); IMMATURE GRAN PERCENT AUTO 1 % (0-1); LYMPHOCYTES ABSOLUTE AUTO 0.68 K/mm3 (0.84-5.20); LYMPHOCYTES PERCENT AUTO 15 % (21-46); MONOCYTES ABSOLUTE AUTO 0.65 K/mm3 (0.16-1.47); MONOCYTES PERCENT AUTO 15 % (4-13); Mean Corpuscular HGB 29.2 pg (26.0-34.0); Mean Corpuscular Volume 89 fL (80-100); Mean Platelet Volume 9.3 fL (9.1-12.4); NEUTROPHILS ABSOLUTE AUTO 2.97 K/mm3 (1.96-9.15); NEUTROPHILS PERCENT AUTO 67 % (41-73); Platelet Count 405 K/mm3 (150-400); RDW Coefficient Variation 14.9 % (11.7-14.2); RDW Standard Deviation 48.6 fL (35.1-46.3); Red Blood Cell Count 4.08 M/mm3 (4.30-5.90); White Blood Cell Count 4.41 K/mm3 (4.00-11.30)
[2021-12-01 05:45] LABS: Anion Gap 10 mmol/L (6-16); Blood Urea Nitrogen 38 mg/dL (8-24); Bun/Creatinine Ratio 27.9 (12.0-20.0); CO2, Blood 27 mmol/L (21-32); Calcium, Blood 8.6 mg/dL (8.5-10.1); Chloride, Blood 103 mmol/L (98-108); Creatinine, Blood 1.36 mg/dL (0.60-1.20); Glomerular Filtration Rate 52 (60-); Glucose, Blood 151 mg/dL (70-99); Potassium, Blood 3.2 mmol/L (3.5-5.5); Sodium, Blood 140 mmol/L (136-145)
[2021-12-01 05:56] LABS: Albumin, Blood 2.9 g/dL (3.4-5.0); Phosphorus, Blood 2.2 mg/dL (2.5-4.9)
--- NOTE | 2021-12-01 17:29 | NUR ---
SHIFT SUMMARY; PATIENT REMAINS IN RESTRAINTS THROUGHOUT DAY. IS ORIENTED TO SELF ONLY. HE SLEEPS FOR FIRST FEW HOURS OF SHIFT THEN REFUSES AM MEDICATIONS. PER GIVE WILLIAM LIQUID POTTASSIUM IF HE WILL TAKE IT. PATIENT WILL NEED TO HAVE HIS PILLS CRUSHED IN APPLESAUCE HE IS HAVING TROUBLE SWALLOWING THEM. PATIENT DOES NOT HAVE AN IV SITE AT THIS TIME. MARLO RAMIREZ COMES TO SEE PATIENT AND WILL SEND SOMEONE TOMORROW TO [facility] FOR POSSIBLE PLACEMENT THERE. CELSA CUADRA RN
--- NOTE | 2021-12-01 21:51 | NUR ---
PT RESTING IN BED. INTERMITTENTLY PUTS LEGS OVER SIDE OF BED, TRYING TO GET UP. REDIRECTED. WILL CONTINUE TO MONITOR.
--- NOTE | 2021-12-02 05:58 | NUR ---
PT AWAKE MOST OF NIGHT. KEPT PUTTING LEGS OVER BEDRAILS, TRYING TO GET UP AND LEAVE. ALIS AND MITTS IN PLACE. ORDERED TO BE RENEWED BY 1100, 12/02/21. PT TOLERATED WATER AND PILLS CRUSHED IN APPLESAUCE. HICCUPS THIS AM. COLOSTOMY WITH BROWN LOOSE STOOL. CONTINUE POC.
[2021-12-02 10:13] LABS: Potassium, Blood 3.2 mmol/L (3.5-5.5)
[2021-12-02 10:28] LABS: Magnesium, Blood 0.9 mg/dL (1.6-2.4)
[2021-12-02 14:59] LABS: BASOPHILS ABSOLUTE AUTO 0.01 K/mm3 (0.00-0.23); BASOPHILS PERCENT AUTO 0 % (0-2); EOSINOPHILS PERCENT AUTO 2 % (0-6); Hematocrit 31.3 % (37.0-53.0); Hemoglobin 10.2 g/dL (13.5-17.5); IMMATURE GRAN ABSOLUTE AUTO 0.02 K/mm3 (0.00-0.10); IMMATURE GRAN PERCENT AUTO 0 % (0-1); LYMPHOCYTES ABSOLUTE AUTO 1.03 K/mm3 (0.84-5.20); LYMPHOCYTES PERCENT AUTO 23 % (21-46); MONOCYTES ABSOLUTE AUTO 1.07 K/mm3 (0.16-1.47); MONOCYTES PERCENT AUTO 24 % (4-13); Mean Corpuscular HGB 28.8 pg (26.0-34.0); Mean Corpuscular HGB Conc 32.6 g/dL (31.5-36.5); Mean Corpuscular Volume 88 fL (80-100); Mean Platelet Volume 9.5 fL (9.1-12.4); NEUTROPHILS ABSOLUTE AUTO 2.31 K/mm3 (1.96-9.15); NEUTROPHILS PERCENT AUTO 51 % (41-73); Platelet Count 380 K/mm3 (150-400); RDW Coefficient Variation 14.8 % (11.7-14.2); RDW Standard Deviation 47.9 fL (35.1-46.3); Red Blood Cell Count 3.54 M/mm3 (4.30-5.90); White Blood Cell Count 4.54 K/mm3 (4.00-11.30)
[2021-12-02 15:18] LABS: Albumin, Blood 2.3 g/dL (3.4-5.0); Albumin/Globulin Ratio 0.6 (0.8-1.8); Bilirubin, Total 0.3 mg/dL (0.1-1.0); Bun/Creatinine Ratio 28.3 (12.0-20.0); Creatinine, Blood 1.45 mg/dL (0.60-1.20); Globulin, Blood 3.7 g/dL (2.2-4.0); Magnesium, Blood 1.6 mg/dL (1.6-2.4); Potassium, Blood 3.7 mmol/L (3.5-5.5); Uric Acid, Blood 9.3 mg/dL (3.5-7.2)
--- NOTE | 2021-12-02 17:37 | NUR ---
SUMMARY- PT ALERT TO SELF ONLY. BEDREST WITH TURN Q2. DEPENDANT WITH ADL'S. TOOK OFF RESTRAINTS 0910, PT ASSISTED EATING BREAKFAST 5%. TAKING IN FLUIDS. FED SELF LUNCH AND ATE 20% AND 1/2 ENSURE. BP LOW AT 1600, CALLED DR CUENCA, GIVEN PARAMETERS FOR CARDIAC MEDS THAT WERE HOME MEDS RESTARTED THIS AM. ENCOURAGED PO INTAKE. PT GOT UP OOB UNATTENDED, CLIMBED OVER THE RAIL, BUT NURSE DISCHARGE PLANNER ABOE TO HELP PT AMBULATE TO BATHROOM WITHOUT INCIDENT. PT HAD EXPLOSIVE MUCOUS OUT OF RECTUM, ALSO VOIDED FOR THE FIRST TIME TODAY. MEDICATED X1 WITH ULTRAM FOR ABD CRAMPING WITH GOOD EFFECT. WILL REPORT TO NOC
--- NOTE | 2021-12-03 03:54 | NUR ---
PT RESTING IN BED. REMAINED OUT OF RESTRAINTS SINCE THIS AFTERNOON. STILL CONFUSED AND ONLY ORIENTED TO SELF. IN PLEASANT MOOD THIS SHIFT. BP REMAINS LOW IN THE 80'S AND 90'S, SYSTOLICALLY. FAMILY HAS NOT MADE A DECISION REGARDING HOSPICE CARE. CONTINUE TO MONITOR.
--- NOTE | 2021-12-03 07:56 | NUR ---
UZAIR recjosé luis handoff of patient care from UZAIR Andrade Patient was in bed and appeared sleeping. No distress noted
--- NOTE | 2021-12-03 16:38 | NUR ---
Patient was alert and orient x2. His affect was restricted and mood was congruent. He appeared to be in good spirits. He sat in the chair for at least an hour. He was compliant with taking scheduled meds then stated, "I dont want anymore". He had no complaints of pain. Patient was ambulatory but w/SBA. Patient was continent of bladder and he had a colostomy for stool. Patient also had a medium sized mucusy-like ball but not BM. Provider was informed and he stated to cont to monitor. Patient BG was 94/65 this morning and all of his bp meds were held. Provider was informed. Cont to encourage fluids and monitor for safety
--- NOTE | 2021-12-04 04:56 | NUR ---
PT UP TO BATHROOM. PACED IN ROOM AND TRIED TO LEAVE ROOM MULTIPLE TIMES THROUGHOUT THE NIGHT. ALERT TO SELF. BP REMAINS LOW IN THE 80'S AND 90'S. CONTINUE POC.
[2021-12-04 05:09] LABS: Hematocrit 29.3 % (37.0-53.0); Hemoglobin 9.7 g/dL (13.5-17.5); Mean Corpuscular HGB 28.9 pg (26.0-34.0); Mean Corpuscular HGB Conc 33.1 g/dL (31.5-36.5); Mean Corpuscular Volume 87 fL (80-100); Mean Platelet Volume 9.7 fL (9.1-12.4); Platelet Count 306 K/mm3 (150-400); RDW Coefficient Variation 14.3 % (11.7-14.2); RDW Standard Deviation 45.7 fL (35.1-46.3); Red Blood Cell Count 3.36 M/mm3 (4.30-5.90); White Blood Cell Count 5.66 K/mm3 (4.00-11.30)
[2021-12-04 05:33] LABS: Albumin, Blood 2.3 g/dL (3.4-5.0); Anion Gap 9 mmol/L (6-16); Blood Urea Nitrogen 31 mg/dL (8-24); Bun/Creatinine Ratio 26.3 (12.0-20.0); CO2, Blood 25 mmol/L (21-32); Calcium, Blood 8.2 mg/dL (8.5-10.1); Chloride, Blood 100 mmol/L (98-108); Creatinine, Blood 1.18 mg/dL (0.60-1.20); Glomerular Filtration Rate >60 (60-); Glucose, Blood 102 mg/dL (70-99); Phosphorus, Blood 2.3 mg/dL (2.5-4.9); Potassium, Blood 3.3 mmol/L (3.5-5.5); Sodium, Blood 134 mmol/L (136-145)
[2021-12-04 05:56] LABS: BAND PERCENT MAN 5 % (0-8); BASOPHILS PERCENT MAN 0 % (0-2); EOSINOPHILS ABSOLUTE MAN 0.22 K/mm3 (0.00-0.68); EOSINOPHILS PERCENT MAN 4 % (0-6); LYMPHOCYTES ABSOLUTE MAN 1.81 K/mm3 (0.84-5.20); LYMPHOCYTES PERCENT MAN 32 % (21-46); MONOCYTES ABSOLUTE MAN 1.07 K/mm3 (0.16-1.47); MONOCYTES PERCENT MAN 19 % (4-13); MYELOCYTE ABSOLUTE MAN 0.11 K/mm3 (0.00-0.00); MYELOCYTE PERCENT MAN 2 % (0-0); NEUTROPHILS ABSOLUTE MAN 2.43 K/mm3 (1.96-9.15); SEG NEUTROPHILS PERCENT MAN 38 % (41-73); TOTAL CELLS COUNTED 100
[2021-12-04 06:06] LABS: Magnesium, Blood 1.1 mg/dL (1.6-2.4)
--- NOTE | 2021-12-04 06:12 | NUR ---
CRITICAL MAGNESIUM VALUE OF 1.1 REPORTED. WAS PREVIOUSLY 0.9 ON 12/02/21 , PT RECEIVED 2 GM OF IV MAGNESIUM, VALUE INCREASED TO 1.6.
--- NOTE | 2021-12-04 08:11 | NUR ---
RN recvd handoff of patient care from UZAIR Andrade Patient was lying in bed but not asleep. Cont to monitor patient
--- NOTE | 2021-12-04 17:22 | NUR ---
Patient was alert and orient, he was confused and a little agitated this shift. Patient alternatively laid in bed and sat in chair. Alarm was on for his safety. Patient refused his morning medications and his scheduled Potassium replacement IV. He had no complaints of pain and did not want to take any meds from this RN. RN consulted palliative care team to see if family could be reached and consider hospice or palliative care for this patient. He is currently DNR.
--- NOTE | 2021-12-05 04:52 | NUR ---
PT UP PACING AND TRYING TO LEAVE ROOM MULTIPLE TIMES THROUGHOUT SHIFT. ALERT TO SELF ONLY. CONSTANTLY MOVING THINGS AROUND ROOM. WAS HALLUCINATING AND SEEING THINGS ON FLOOR; KEPT ACTING IF HE HAD SOMETHING IN HIS HAND, WELL. INTERMITTENTLY AGITATED, YELLING, AND CURSING AT STAFF. SLEPT FOR ABOUT 20 MINS DURING SHIFT. EMPTIED COLOSTOMY; SOFT BROWN STOOL NOTED. ATTEMPTED TO GIVE PO PHENERGAN AND ULTRAM FOR NAUSEA, HICCUPS, AND HEADACHE; PT SPIT OUT MOST OF IT WHICH WAS CRUSHED AND MIXED WITH APPLESAUCE. PALLIATIVE CARE CONSULT; AWAITING PLAN. CONTINUE POC.
[2021-12-05 06:11] LABS: Hematocrit 34.7 % (37.0-53.0); Hemoglobin 11.2 g/dL (13.5-17.5); Mean Corpuscular HGB 28.6 pg (26.0-34.0); Mean Corpuscular HGB Conc 32.3 g/dL (31.5-36.5); Mean Corpuscular Volume 89 fL (80-100); Mean Platelet Volume 9.5 fL (9.1-12.4); Platelet Count 458 K/mm3 (150-400); RDW Coefficient Variation 14.6 % (11.7-14.2); Red Blood Cell Count 3.91 M/mm3 (4.30-5.90); White Blood Cell Count 8.49 K/mm3 (4.00-11.30)
[2021-12-05 06:53] LABS: BAND PERCENT MAN 8 % (0-8); BASOPHILS PERCENT MAN 0 % (0-2); EOSINOPHILS ABSOLUTE MAN 0.08 K/mm3 (0.00-0.68); EOSINOPHILS PERCENT MAN 1 % (0-6); LYMPHOCYTES ABSOLUTE MAN 2.29 K/mm3 (0.84-5.20); LYMPHOCYTES PERCENT MAN 27 % (21-46); METAMYELOCYTE ABSOLUTE MAN 0.08 K/mm3 (0.00-0.00); METAMYELOCYTE PERCENT MAN 1 % (0-0); MONOCYTES ABSOLUTE MAN 1.61 K/mm3 (0.16-1.47); MONOCYTES PERCENT MAN 19 % (4-13); MYELOCYTE ABSOLUTE MAN 0.25 K/mm3 (0.00-0.00); MYELOCYTE PERCENT MAN 3 % (0-0); NEUTROPHILS ABSOLUTE MAN 4.16 K/mm3 (1.96-9.15); SEG NEUTROPHILS PERCENT MAN 41 % (41-73); TOTAL CELLS COUNTED 100
[2021-12-05 07:01] LABS: Albumin, Blood 2.8 g/dL (3.4-5.0); Anion Gap 8 mmol/L (6-16); Blood Urea Nitrogen 24 mg/dL (8-24); Bun/Creatinine Ratio 24.2 (12.0-20.0); CO2, Blood 27 mmol/L (21-32); Calcium, Blood 9.2 mg/dL (8.5-10.1); Chloride, Blood 99 mmol/L (98-108); Creatinine, Blood 0.99 mg/dL (0.60-1.20); Glomerular Filtration Rate >60 (60-); Glucose, Blood 125 mg/dL (70-99); Phosphorus, Blood 2.3 mg/dL (2.5-4.9); Potassium, Blood 4.1 mmol/L (3.5-5.5); Sodium, Blood 134 mmol/L (136-145)
[2021-12-05 07:23] LABS: Magnesium, Blood 1.1 mg/dL (1.6-2.4)
--- NOTE | 2021-12-05 07:56 | NUR ---
UZAIR recvd handoff of patient care from UZAIR Andrade Patient was awake in bed and then noted to be in bathroom. RN went into room to assist and he demanded "Get out of here, I dont need any help!" RN stayed in his room to assist back in bed once done in bathroom and bed alarm turned on.
--- NOTE | 2021-12-05 17:45 | NUR ---
Patient was alert and orient. He was not as agitated and did not have to get any prns this shift. Patient did take his medications, agreed to take his Magnesium IV but refuse to get the lab drawn. Patient also agreed to have his Phosphate via IV but within an hour of infusing threatened to "snatch it out". This RN stopped the infusion and discuss with the patient the importance of the medication and the reason the doctor ordered. Patient stated, "Ahh who cares!" Patient is currently sitting at the edge of bed eating dinner. He has no requests at this time.
--- NOTE | 2021-12-06 04:33 | NUR ---
PT UP IN ROOM MOST OF NIGHT. SLEPT ABOUT 30 MINS. REMAINS CONFUSED AND NEEDS CONSTANT REDIRECTION. PT SAT IN SHOWER THIS SHIFT. CONTINUE POC.
--- NOTE | 2021-12-06 13:29 | NUR ---
RN talked to sister Rachel Garcia and she said that she is willing to talk to Palliative Care about comfort care/hospice. RN notified Radha in Palliative Care and gave Rachel's number [phone]. Radha stated that she will reach out.
[2021-12-06 13:38] LABS: Anion Gap 5 mmol/L (6-16); Blood Urea Nitrogen 18 mg/dL (8-24); Bun/Creatinine Ratio 18.9 (12.0-20.0); CO2, Blood 28 mmol/L (21-32); Calcium, Blood 8.4 mg/dL (8.5-10.1); Chloride, Blood 102 mmol/L (98-108); Creatinine, Blood 0.95 mg/dL (0.60-1.20); Glomerular Filtration Rate >60 (60-); Glucose, Blood 132 mg/dL (70-99); Magnesium, Blood 1.2 mg/dL (1.6-2.4); Phosphorus, Blood 2.3 mg/dL (2.5-4.9); Potassium, Blood 4.6 mmol/L (3.5-5.5); Sodium, Blood 135 mmol/L (136-145)
--- NOTE | 2021-12-06 15:00 | NUR ---
Case conferenced with and pt's RN re: current status, issues and concerns before calling sister Dain [phone]. Pt is currently refusing or declining all attempts to provide care, fluid and nutrition most of the time, PO medications, IV RX, labs etc. He is confused and has been t/o this lengthy hospital stay for GI bleed, metabolic encephalopathy, JAVIER, protein calorie malnutrion and general deconditioning and decline, which has accelerated since colostomy placement last September. Pt has had multiple hospital stays since being relocated to [place] by his sister and brother in July. Pt has 50 year heavy drinking hx per sister. I was able to reach Dain and update her on current status and recommendations for care. I had greater than one hour conversation with Dain who is having great difficulty being the decision maker for her brother. Time spent listening and supporting her. She eventually came to the conclusion that she supports EOL/supportive comfort care for her brother as long as we continue to offer him PO fluids and food, which I assured her we would do as long as he was alert and able to swallow safely without aspirating. I discussed comfort care with her in great detail and continued plan to resume on Tuesday with Care managers to find placement in memory care with hospice support there. When I rounded on pt he was awake and quiet in his room, looking out the window. RN and data migration lead had great difficulty drawing ordered labs from him earlier today. Pt appears slightly restless/anxious but no nonverbal indicators of pain noted at this time. Comfort care orders obtained from and entered. eMar with some duplicate medications as pt was requiring IM prn medications at times and may be needed again if pt becomes agitated/agressive and we are unable to administer PO or SL medications. Pt's sister informed that family visitors are allowed for comfort care patients. She plans to visit early this week. Bedside RN updated on new orders and my conversation with pt's sister. Plan reassessment of s/s in am.
--- NOTE | 2021-12-06 16:45 | NUR ---
Patient is now DNR, he will continued to be monitored for safety and comfort. Patient refused his meds and labs today. His appetite was 50% for meals and he drank his fluids. Patient was pleasant but very beligerent when asked to take meds or draw blood. Patient sat up in the chair periodically. Patient complained of no pain. He had no requests at this time
--- NOTE | 2021-12-07 06:14 | NUR ---
NO ACUTE CHANGE IN STATUS. PT RESTED IN BED AND SLEPT MORE THIS SHIFT THAN LAST SEVERAL NIGHTS. REMAINS CONFUSED AND ONLY ALERT TO SELF. RECEIVED NIGHT DOSE OF ZYPREXA AND PRN DOSE OF ATIVAN THIS SHIFT. IV AND COLOSTOMY STILL IN PLACE, PT HAS TOLERATED BOTH. COLOSTOMY BAG EMPTIED X1. SMALL MUCUS STOOL AND URINE NOTED IN TOILET. PT AMBULATED IN ROOM AND UP TO BATHROOM WITHOUT DIFFICULTY. CONTINUE POC.
--- NOTE | 2021-12-07 10:09 | NUR ---
Comfort care visit earlier this am. Pt was sound asleep and did not wake to voice or touch. RN and JOURNEYMAN APPRENTICE ELECTRICIANS plan to wake him momentarily to attempt offering PO intake/breakfast. Pt curled up on L side in position. He looks peaceful with no nonverbal indicators of pain or distress at the time of my visit. I did not disturb him. Medications reviewed. Sister and brother stated yesterday they may be in to visit today. Pt is emaciated and has been on a steady weight and overall health decline in recent 4 -5 months. Pal Care to remain available for assist.
--- NOTE | 2021-12-07 16:14 | NUR ---
SHIFT SUMMARY PT AxOx1- SELF. PT ON COMFORT CARE. PERSONAL CARE PERFORMED T/O THIS SHIFT. PT EXPRESSED AGGRESSIVE VERBAL BEHAVIOR THIS SHIFT. PT REORIENTED APPROPRIATELY. PT SLEEPY AND RESTING IN BED MOST OF THIS DAY. PT CURRENTLY RESTING IN BED WITH CALL LIGHT IN REACH. DENIES ANY NEEDS AT THIS TIME.
--- NOTE | 2021-12-08 10:47 | NUR ---
Comfort care visit and case conf with pt's RN. Pt sitting up in chair, arthur vest in place. Pt is working on breakfast and allows me to move things closer for him. He had pushed his bedside table with breakfast on it out of easy reach. Pt appears sl restless but not distressed in any way currently. RN confirms that pt's s/s appear to be well managed with minimal medications needed and pt has been mostly calm and cooperative with care. Review of EMR indicates the same. RN to contact re: job planning progress. Sister had indicated to me that pt could not return home alone in the [facility] they had acquired for him in July. This was reported to CM with hospice orders over the weekend.
--- NOTE | 2021-12-08 16:03 | NUR ---
Spiritual Care visit. Pt. is curled up in position under his blankets, and is unresponsive. Pastorally prayed.
--- NOTE | 2021-12-08 17:18 | NUR ---
SHIFT SUMMARY PATIENT IS ALERT AND ORIENTATED TO SELF. PATIENT IS ON COMFORT CARE. PATIENT IS IN RESTRAINTS. PATIENT HAS BEEN RESTING MOST OF DAY. PATIENT HAS BEEN IMPULSIVE AND PULLING AT LINES THIS SHIFT. PERSONAL CARE ADDRESSED Q2. BED IN LOWEST POSITION. CALL LIGHT IN PLACE. WILL MONITOR UNTIL SHIFT CHANGE.
--- NOTE | 2021-12-09 04:26 | NUR ---
SHIFT SUMMARY A/O TO SELF ONLY, IMPULSIVE AND EASILY AGITATED WHEN STAFF ATTEMPTS TO OFFER HELP. COMFORT CARE MEASURES IN PLACE, DENIES PAIN AT THIS TIME. 1 ASSIST TO BATHROOM. BED IN LOWEST POSITION WITH CALL LIGHT IN REACH. WILL CONTINUE TO MONITOR AND REPORT TO ONCOMING RN.
--- NOTE | 2021-12-09 16:41 | NUR ---
Pt in Juanjo morales during the visit. He asked me "Get the hell out.", to me which I did. Pt is here with CKD, chronic pancreatitis. Unsure on how to best hlp this gentlemen. Will attempt to see him again tomorrow.
--- NOTE | 2021-12-09 16:58 | NUR ---
PATIENT IS ALERT AND ORIENTED TO SELF ONLY. PATIENT IS IN A ALIS VEST. PATIENT IS IMPULSIVE AND IS EASILY AGITATED. PATIENT HAS COMFORT CARE MEASURES IN PLACE. PATIENT DENIES, PAIN, NAUSEA, SOB OR VOMITTING THIS SHIFT. NO ACUTE CHANGES THIS SHIFT. PATIENT IS A ONE PERSON ASSIST TO BATHROOM. BED IN LOWEST POSITION. CALL LIGHT IN PLACE. WILL MONITOR UNTIL SHIFT CHANGE.
--- NOTE | 2021-12-10 04:53 | NUR ---
SHIFT SUMMARY PT CONFUSED AND TELLING STORIES THAT DO NOT MAKE MUCH SENSE. PT COOPERATIVE WITH CARE. PT CONTINUES TO TRY TO GET OUT OF BED, ALIS VEST IN PLACE. PT SOMEWHAT REDIRECTABLE. PT GIVEN 1 MG ATIVAN FOR ANXIETY UPON WAKING AND NOT KNOWING WHERE HE WAS. CALL LIGHT IS WITHIN HIS REACH. WILL CONTINUE TO MONITOR.
--- NOTE | 2021-12-10 14:38 | NUR ---
Spiritual Care visit. Pt. is awake and in bed. Pt. welcomed my visit. Established rapport with pt. as I know one of his family members. Pt. is pleasant, but communication is disjointed. Pt. is conversational, but unable to verbalize thoughts that make sense. Listen empathetically. Provide a calming presence. With permission prayed for the pt. Pt. displayed evidence of interest. Pt. welcomed my to return.
--- NOTE | 2021-12-10 16:42 | NUR ---
DAY SHIFT SUMMARY 66 YEAR OLD MALE ADIMITTED FOR JAVIER. PT IS COMFORT CARE, ON RA, A/O TO SELF. PT IS IN RESTRAINTS D/T FALL RISK. OSTOMY CARE PROVIDED. NO ACUTE CHANGES TO PT THIS SHIFT. CALL LIGHT WITHIN REACH.
--- NOTE | 2021-12-10 21:19 | NUR ---
PT REMOVED OSTOMY BAG AGAIN. REPLACED AND ABD BINDER PLACED ON TOP OF OSTOMY TO TRY TO PREVENT PT FROM REMOVING AGAIN.
--- NOTE | 2021-12-11 04:25 | NUR ---
SHIFT SUMMARY PT PULLED HIS OSTOMY BAG OFF AT THE BEGINNING OF THE SHIFT. CLEANED AND REPLACED. ABD BINDER PLACED OVER THE TOP OF IT TO DETER PT FROM PICKING AT IT. PT GIVEN NIGHT MEDS AND HAS BEEN SLEEPING OFF AND ON TONIGHT. PT DOES HAVE MOMENTS OF AGITATION, BUT CALMS DOWN EASILY AND GOES BACK TO BEING PLEASANT. CALL LIGHT WITHIN REACH. PT STILL IN ALIS VEST, ORDERS UPDATED AT 0026 TONIGHT. WILL CONTINUE TO MONITOR.
--- NOTE | 2021-12-11 17:16 | NUR ---
DAY SHIFT SUMMARY 66 YR OLD MALE. OSTOMY CARE PERFORMED PER ORDER. A/O TO SELF. PT ON RA, ABLE TO TAKE MEDS WHOLE. PT IS COMFORT CARE. NO ACUTE CHANGES THIS SHIFT. CALL LIGHT IS WITHIN REACH.
--- NOTE | 2021-12-12 04:24 | NUR ---
CONTROL CABINET ASSEMBLER SUMMARY PATIEINT HAD A FAIR SHIFT. HE IS STILL CONFUSED AND IMPULSIVE. HE HAD HIS PRN MEDS AND PRESCRIBED. HE WAS KEPT COMFORTABLE. WILL CONTINUE TO MONITOR HIM.
--- NOTE | 2021-12-12 16:05 | NUR ---
PT HAS BEEN PLEASANT TODAY. RELEASED VEST RESTRAINT TODAY. HAS BEEN DOING WELL. NOT ATTEMPTING TO GET OUT OF BED. DID ACCEPT FULL SHAVE THIS AM. 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
--- NOTE | 2021-12-12 17:20 | NUR ---
pt medicated and calm will remove arthur. medicated for comfort as needed.
--- NOTE | 2021-12-12 17:32 | NUR ---
PT PLEASANT TODAY. GETS PAINFUL AND IRRITABLE WHEN TURNED. OTHERWISE QUIET PLEASANT. DID GET SHAVED CLEAN THIS DAY. PT STATES WILL BE BETTER. REMAINS SOMEWHAT CONFUSED. IRRITATED AT THIS TIME ABOUT NONSMOKING HOSPITAL RULE. NO NEW CONCERNS NOTED. BED IN LOW POSITION, CALL LITE IN REACH. BED ALARM ON FOR SAFETY
--- NOTE | 2021-12-13 04:08 | NUR ---
WASTE DUSTER SUMMARY PATIENT HAD A FAIR SHIFT. HE HAD HIS PAIN AND ANXIETY MEDICATION NEEDED. HE WAS MADE COMFORTABLE. WILL CONTINUE TO MONITOR HIM.
--- NOTE | 2021-12-13 14:22 | NUR ---
FAMILY IN TO VISIT
--- NOTE | 2021-12-13 16:54 | NUR ---
PT QUITE PLEASANT TODAY. DAUGHTER IN TO VISIT. STATES HE MORE CONFUSED THAN COUPLE DAYS AGO. STATES IS PLEASED HE IS PRESENTING HAPPY TODAY. HAPPY HE IS NOT IN RESTRAINTS. PT STATES PAIN UNDER CONTROL. PT AMBULATED TO BATHROOM TWICE TODAY, SBA. NO NEW CONCERNS NOTED. BED IN LOW POSITION, CALL LITE IN REACH, BED ALARM AND CAMERA ON FOR SAFETY
--- NOTE | 2021-12-14 04:22 | NUR ---
COMPUTER SCIENCE PROFESSOR SUMMARY PATIENT WAS AGITATED, WAS CURSING ON THE STAFF, IMPULSIVE. EFFORTS TO KEEP THE PATIENT CALM WERE FUTILE VEST RESTRAINTS ORDERS WERE OBTAINED AND RESTRAINTS APPLIED. PATIENT WAS EDUCATED ON THE NEED FOR RESTRAINTS AND FOR SAFETY. WILL CONTINUE TO MONITOR HIM
--- NOTE | 2021-12-14 17:35 | NUR ---
Comfort care: Pt is out of arthur vest. He has been sleeping intermittently today. He denies pain. No changes need to care plan at this time.
--- NOTE | 2021-12-14 18:02 | NUR ---
COMFORT CARE SUMMARY PATIENT MEDICATED FOR ANXIETY X1 AND PAIN X1. PATIENT VERY PLEASANT TODAY. RESTRAINTS DISCONTINUED. PATIENTS NEPHEW VISITED.
--- NOTE | 2021-12-15 06:35 | NUR ---
SHIFT SUMMARY - NO ACUTE CHANGES THROUGHOUT THIS SHIFT. PT HAS BEEN SLEEPING THROUGHOUT MOST OF THE NIGHT. PT HAD ONE EPISODE OF AGITATION, BUT WAS ABLE TO BE REDIRECTED DURING THE NIGHT. PT IS ABLE TO TURN HIMSELF IN BED. PT IS A COMFORT CARE PATIENT. FLUIDS AT BEDSIDE. CALL LIGHT WITHIN REACH. BED IN LOW POSITION. WILL CONTINUE TO MONITOR UNTIL AM SHIFT CHANGE.
--- NOTE | 2021-12-15 18:19 | NUR ---
COMFORT CARE SUMMARY PATIENT DENIES PAIN ALL DAY. PATIENT COMFORTABLE. PATIENT AMBULATED WITH SUPERVISION. EASILY REDIRECTED. PATIENT EATING WELL.
--- NOTE | 2021-12-15 19:28 | NUR ---
SMILING. LAYING ON SIDE, DENIES PAIN AND LOSS OF FEELING. STATES HIS BROTHER SAID HE SAID HIS BROTHER WAS , NOTE RUN ON OF THOUGHTS, ALSO SAID HE WAS PLANNING TO GET ANOTHER PLACE TO LIVE.... CALL LIGHT IN REACH
--- NOTE | 2021-12-15 20:19 | NUR ---
AWAKE AND UP TO BATHROOM TO VOID. SOMEWHAT CONFUSED TO WHERE BATHROOM WAS LOCATED.
--- NOTE | 2021-12-15 20:21 | NUR ---
REDIRECTED TO WHERE BATHROOM WAS LOCATED. ASYMPTOMATIC.
--- NOTE | 2021-12-15 22:19 | NUR ---
ACCOMPANIED BACK TO BED, ALARM WAS GOING OFF. COLOSTOMY BAG CHANGED. COLOSTOMY CARE DONE. AFFECT AND BEHAVIOR LABILE. CALL LIGHT IN REACH
--- NOTE | 2021-12-16 00:27 | NUR ---
CONTINUES TO CLIMB OUT OF BED, PULLING OFF OSTOMY SEVERAL TIMES. DOES NOT REDIRECT. MEDICATED AND STILL PULLING OFF OSTOMY. MD NOTIFIED. PLACED IN ALIS AND BILAT WRIST SOFT RESTRAINT PER MD ORDERS. CALL LIGHT IN REACH
--- NOTE | 2021-12-16 05:05 | NUR ---
REGIONAL SALES DIRECTOR SUMMARY AWAKE MOST OF SHIFT, MADE MULTIPLE ATTEMPTS TO PULL OFF OSTOMY BAG. MULTIPLE ATTEMPTS TO REDIRECT HIM, MEDICATE HIM AND HE STILL CONTINUED TO GET OUT OF BED AND ATTEMPT TO WANDER IN THE HALLS LOOKING FOR THE BATHROOM. MD NOTIFIED, ALIS VEST AND BILAT WRIST SOFT RESTRAINTS APPLIED PER MD ORDER, TO PROTECT OSTOMY BAG AND PREVENT POTENTIAL SELF HARM WITH POSIBLE FALLS. CALL LIGHT IN REACH. WILL CONTINUE TO MONITOR
--- NOTE | 2021-12-16 05:38 | NUR ---
INTERMITTENT AGITATION. STAFF CONT TO REDIRECT BEHAVIOR. ENCOURAGE SLEEP. CALL LIGHT IN REACH. VEST AND BILAT WRIST RESTRAINTS INTACT.
--- NOTE | 2021-12-16 05:39 | NUR ---
AGITATED, BUT SEEMS MORE TIRED. ENCOURAGED TO SLEEP. CALL LIGHT IN REACH
--- NOTE | 2021-12-16 17:10 | NUR ---
PATIENT IS AWAKE,ALERT AND CONFUSED.PATIENT REMAIN ON COMFORT CARE.DENIES PAIN. PATIENT REMAIN IN RESTRAINT AND VIDEO MONITORING FOR SAFETY. PATIENT SISTER AT BEDSIDE.
--- NOTE | 2021-12-17 05:37 | NUR ---
PM SHIFT SUMMARY PATIENT WAS AWAKE FOR A GOOD PORTION OF THE EVENING, CARRYING ON A CONVERSATION WITH SOMEONE HE THOUGHT WAS PRESENT IN THE ROOM. HE DID FALL ASLEEP FOR AN HOUR OR SO, A FEW DIFFERENT TIMES. HE IS A&Ox 1-2. HE IS DNR COMFORT CARE AT THIS TIME. NO TELE, NO IV ACCES. HE IS IN BOTH VEST AND SOFT WRIST RESTRAINTS. HE DID NOT ATTEMPT TO PULL AT OSTOMY BAG THIS SHIFT. PLAN IS TO FANY SANTIAGO'S WITH HOSPICE CARE.
--- NOTE | 2021-12-17 17:24 | NUR ---
PATIENT REMAIN ON COMFORT CARE.DENIES PAIN.NO ACUTE DISTRESS NOTED. PATIENT IS UNCOOPERATIVE IN RESTAINT.
--- NOTE | 2021-12-18 05:31 | NUR ---
PM SHIFT SUMMARY PATIENT STILL UNABLE TO COME OFF RESTRAINTS, HE CONTINUES TO TRY AND SIT UP TO GET OUT OF BED. HE STATES HE HAS TO GO GET HIS PRIZES FROM THE EVENT, GO TO THE SHORE AND VARIOUS OTHER THINGS. HE ATTEMPTED TO GET UP AND OUT OF BED AT LEAST 15-20 TIMES. HE IS ALERT AND ORIENTED TO SELF. HE IS PLEASANTLY CONFUSED AND EASILY REDIRECTABLE. 2MG IM ATIVAN DOSE EARLY THIS MORNING DID NOT SEEM TO HELP MUCH WITH GETTING HIM EXTENDED REST.
--- NOTE | 2021-12-18 17:17 | NUR ---
PATIENT REMAIN IN COMFORT CARE. PAIN CONTROL. DENIES COMPLAINT. REMAIN ON RESTRAINT. HYDRATION AND OSTOMY EMPTY OFFERED EVERY TOW HOURS.
--- NOTE | 2021-12-19 05:12 | NUR ---
SHIFT SUMMARY PT IS A 66 Y/O MALE, ADMITTED FOR JAVIER AND CURRENTLY COMFORT CARE. HE IS A&O X 2, VERY FORGETFUL. CURRENT IN VEST RESTRAINT D/T PT HIGH FALL RISK AND CONFUSION. PT AWAKE OFF AND ON THROUGH THE NIGHT, AND REPORTED HE DID NOT SLEEP WELL. PT WAS MEDICATED AT HS FOR BACK PAIN WITH PRN TYLENOL. NO C/O NAUSEA OR SOB. NO OTHER ACUTE CHANGES IN PT CONDITION NOTED DURING THE NIGHT. WILL CONTINUE TO MONITOR AND TREAT PER EMAR UNTIL HAND OFF TO DAY SHIFT RN.
--- NOTE | 2021-12-19 16:17 | NUR ---
ALERT TO SELF. OUT OF RESTRAINTS THIS A.M. DOES TRY TO GET UP, BUT BED AND CHAIR ALARMS ON. REDIRECTABLE. DENIES NAUSEA, SOB OR ANY PAIN. UNLABORED RESPIRATIONS. KNOWS HE IS ON 3RD FLOOR. WCTM
--- NOTE | 2021-12-20 04:37 | NUR ---
SHIFT SUMMARY 67 YR M ADMITTED ON 11/14/21. HIS CURRENT DX IS FAILURE TO THRIVE. DNR. PT HAD A GOOD NIGHT THIS SHIFT. HE WAS NOT RESTRAINED AND BED AND CHAIR ALARMS WERE TURNED OFF, AND HE WAS ABLE TO MOVE FREELY IN THE ROOM. THIS SEEMED TO MAKE HIM VERY HAPPY. HIS ATTITUDE WAS GREAT ALL NIGHT AND HIS BEHAVIOR WAS APPROPRIATE. HE IS STEADY ON HIS FEET AND USED THE RESTROOM INDEPENDANTLY. PT IS ON COMFORT CARE AND IS CURRENTLY AWAITING PLACEMENT IN A SNF.
--- NOTE | 2021-12-21 02:49 | NUR ---
SHIFT SUMMARY 67 YR M ADMITTED ON 11/14/21 FOR FAILURE TO THRIVE. DNR. PT HAD A GOOD NIGHT AND WAS ABLE TO SLEEP INTERMITTENLY. HE SPOKE OF HIS VISIT WITH HIS SISTER TODAY AND SEEMED VERY PLEASED TO HAVE SPENT TIME WITH HER. HE IS STILL GETTING VERY CONFUSED AT TIMES AND IS ORIENTED TO SELF BUT NOT TIME OR PLACE. HE CONTINUALLY THINKS HE IS SOMEWHERE ELSE AND ASKS WHERE HE IS AND HOW HE GOT HERE. HIS DEMEANOR HAS BEEN FRIENDLY AND COOPERATIVE AND AGAIN TODAY HE WAS ABLE TO ROAM FREELY IN HIS ROOM WITH NO RESTRAINTS OR BED AND CHAIR ALARMS. HE SEEMS TO ENJOY THE INDEPENDANCE AND HE IS VERY PLEASANT TO INTERACT WITH.
--- NOTE | 2021-12-21 09:48 | NUR ---
Patient was in bed sleeping. He appeared in no distress
--- NOTE | 2021-12-21 15:11 | NUR ---
Pt's entire demeanor has elevated. He is no longer tied with arthur vest. He is up ambulating with walker, no pain or other issues at this time.
--- NOTE | 2021-12-22 04:23 | NUR ---
SHIFT SUMMARY: A&OX2, AD LISA IN ROOM. COLOSTOMY IN PLACE WITH ADEQUATE OUTPUT. NO COMPLAINTS OF PAIN. NO SIGNIFICANT EVENTS ON NOC.
--- NOTE | 2021-12-22 15:19 | NUR ---
Spiritual Care Visit Pt. is in bed, but alert and friendly. Pt. welcomes my visit. Re-establish rapport. Pt. is unsettled about remembering where he is, "Is this a [place]?" Listen empathetically and gently correctly answer his questions. Pt. valonteered a brief life review. Pt. idenitifes himself as a follower of God. Prayed for pt. Pt. displayed evidence of peace, and verbalized gratitude for the spiritual care visit.
--- NOTE | 2021-12-22 18:02 | NUR ---
SHIFT SUMMARY: ON COMFORT CARE. DENIES PAIN. INDEPENDENT IN ROOM. BECAME ANGRY AND BELLIGERENT THIS MORNING WHEN COLOSTOMY BAG LEAKED ON HIS BED, REFUSED TO ALLOW STAFF TO CHANGE BAG. NAPPED INTERMITTENTLY THIS AFTERNOON. HAD VISIT WITH SOLUTIONS ARCHITECT CONSULTANT.
--- NOTE | 2021-12-22 23:29 | NUR ---
SHOWER CHANGED PTS COLOSTOMY APPLIANCE/BAG AFTER PT TOOK SHOWER. WCTM.
--- NOTE | 2021-12-23 08:33 | NUR ---
Comfort Care Visit Pt sitting on edge of bed eating his breakfast. Pt denies pain at this time. Pt slightly withdrawn and does not engage in conversation. Pt reports no concerns at this time. Pt appears comfortable with no S/S of distress at this time. Palliative Care will remain available.
--- NOTE | 2021-12-23 20:19 | NUR ---
AWAKE, IN BED. TALKATIVE. CONFUSED STATEMENTS. CALL LIGHT IN REACH. DENIES PAIN AND LOSS OF FEELING. HOB APPROX 30 DEGREES. ABLE TO MOVE IN BED WITHOUT ASSIST
--- NOTE | 2021-12-23 21:38 | NUR ---
AWAKE. RUBBING LEGS. NO C/O VOICED, NO S/S ACUTE DISTRESS. RELAXATION CHANNEL ON TV. CALL LIGHT IN REACH
--- NOTE | 2021-12-23 22:01 | NUR ---
RESTING QUIETLY. NO S/S ACUTE DISTRESS. CALL LIGHT IN REACH
--- NOTE | 2021-12-24 00:37 | NUR ---
CONTINUES TO REST QUIETLY. NO NOTED SIGNS OF PAIN OR DISTRESS. CALL LIGHT IN REACH
--- NOTE | 2021-12-24 00:40 | NUR ---
RESTING QUIETLY AT THIS TIME. HAS BEEN AWAKE AT TIMES, DENIED PAIN. CALL LIGHT INE REACH
--- NOTE | 2021-12-24 01:47 | NUR ---
RESTING QUIETLY. NO NOTED SIGNS OF DISCOMFORT. CALL LIGHT IN REACH
--- NOTE | 2021-12-24 02:45 | NUR ---
RESTING QUIETLY. NO NOTED S/S ACUTE DISTRESS. CALL LIGHT IN REACH
--- NOTE | 2021-12-24 03:39 | NUR ---
INSTRUMENTATION TECH SUMMARY REMAINS ON COMFORT CARE. HAS BEEN RSTING QUIETLY WITH FEW INTERRUPTIONS SINCE HS. COLOSTOMY INTACT. NO NOTED S/S OF DISCOMFORT. CALL LIGHT IN REACH
--- NOTE | 2021-12-24 05:27 | NUR ---
RESTING QUIETLY. NO C/O VOICED. CALL LIGHT IN REACH
--- NOTE | 2021-12-24 06:28 | NUR ---
RESTING QUIETLY. CALL LIGHT IN REACH
--- NOTE | 2021-12-24 18:15 | NUR ---
PT RESTED IN ROOM T/O SHIFT. PT SHOWERED Q SHIFT, ADDITIONAL SUPPORT W/ WASHING BACK PROVIDED DUE TO COLOSTOMY BAG BLOWING. PT C/O FOOD PROVIDED T/O SHIFT. PT STATES HE HAS RECIEVED THE SAME FOOD EACH MEAL T/O STAY. PT VERY FRUSTERATED W/ FOOD OPTIONS SELECTED NOT BEING PROVIDED OR VARIATION.
--- NOTE | 2021-12-24 19:45 | NUR ---
COMFORT CARE CONTINUES. DENIED PAIN. NO LOSS FO FEELING. SMILING HE ANSWERED QUESTIONS. WATCHING TV. CALL LIGHT IN REACH. SAFETY ENCOURAGED.
--- NOTE | 2021-12-24 23:57 | NUR ---
AWAKE AT INTERVALS. OUT OF BED ON OCCASIONS, TALKING TO STAFF. SMILING. CURRENTLY IN BED. RESTING QUIETLY. CALL LIGHT IN REACH
--- NOTE | 2021-12-24 23:58 | NUR ---
RESTING QUIETLY IN BED. CALL LIGHT INE REACH
--- NOTE | 2021-12-25 01:19 | NUR ---
WAS UP IN THE BATHROOM A WHILE, CAMERA TECH BROUGHT IT TO NURSE ATTENTION. PT WAS TAKING A SHOWER. VOICED ANNOYANCE WITH STAFF MONITORING. WENT BACK TO BED POST SHOWER. TITUS RESING QUIETLY WITH CALL LIGHT IN REACH
--- NOTE | 2021-12-25 03:01 | NUR ---
RESTING QUIETLY. CALL LIGHT IN REACH
--- NOTE | 2021-12-25 03:21 | NUR ---
MATE RELIEF SUMMARY CONTINUES ON COMFORT CARE STATUS. AFFECT CHERFUL AT TIMES, BUT WAS UPSET THAT HE WAS ENCOURAGED TO GO TO BED IN THE EARLY HOURS WHEN CAUGHT TAKING A SHOWER. NO COMPLAINTS OF PAIN. TOLERATING MEDS WELL. INTERMITTENT EPISODES OF SLEEP WITH SOME BOUTS OF AMBULATING ABOUT ROOM. CURRENTLY RESTING QUIETLY IN BED, CALL LIGHT IN REACH
--- NOTE | 2021-12-25 04:51 | NUR ---
RESTING QUIETLY. CALL LIGHT IN REACH
--- NOTE | 2021-12-25 11:10 | NUR ---
Comfort care visit Reviewed CM notes, CM is working on placement for Jose. Requested by [employer] to apply ostomy appliance to stoma. Stoma is pink, passing stool. Skin prep applied and new ostomy appliance applied. Pt denies any pain or discomfort with ostomy. He interacts with staff during the time this telegraphic typewriter operator changed his ostomy appliance. No requests. Able to stand and maintain his balance without assistance. PC to continue to follow as needed.
--- NOTE | 2021-12-25 17:42 | NUR ---
Spiritual Care Visit. Pt. is awake and sitting on the edge of the bed. Pt. welcomes my visit. Pt. displays evidence of confusion, but is mostly pleasant. Pt. verbalized one verbal expletive demanding his dinner. I provided a calming influence and reminded him that it wasn't even dinner time yet. 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 Pt. displays evidence of diminished anger, and is receptive to our interaction. With permission, I prayed for the pt. Pt. verbalized gratitude for the spiritual care visit. We "knocked knuckles" before I left.
--- NOTE | 2021-12-25 18:00 | NUR ---
SHIFT SUMMARY- PT IS ALERT, CONFUSED. HE IS EATING AND DRINKING WELL. HE TOOK A SHOWER THIS AFTERNOON. HE HAD A VISIT FROM SPIRITUAL CARE. HIS SISTER WAS HER THIS EVENING AND BROUGHT HIM DINNER.
--- NOTE | 2021-12-25 22:55 | NUR ---
COMFORT VISIT PATIENT CALMM RESTING WITH EYES CLOSE LORNA PAIN
--- NOTE | 2021-12-26 00:05 | NUR ---
COMFORT CARE ROUND ASSITED TO THE BATHROOM LORNA PAIN
--- NOTE | 2021-12-26 02:34 | NUR ---
COMFORT CARE PATIENT QUIETLY A SLEEP NO S/S OF PAIN .
--- NOTE | 2021-12-26 04:03 | NUR ---
COMFORT CARE PATIENT ASSISTED TO THE BATHROOM PO FLUIDS OFFERED RESTING IN BED NOW
--- NOTE | 2021-12-26 07:04 | NUR ---
PATIENT QUIETLY RESTING LORNA PAIN
--- NOTE | 2021-12-26 16:27 | NUR ---
SHIFT SUMMARY PATIENT IS ALERT 1-2X. PATIENT IS ON COMFORT CARE MEASURES. PATIENT IS INDEPENDENT TO BATHROOM. PATIENT HAS HAD NO ACUTE EVENTS THIS SHIFT. PATIENT HAS HAD COLOSTOMY BAG REPLACED TODAY. BED IN LOCKED AND LOWEST POSITION. CALL LIGHT IN PLACE. WILL MONITOR UNTIL SHIFT CHANGE.
--- NOTE | 2021-12-26 17:38 | NUR ---
Pt lying back on bed, watching television. He is pleasant, alert. He denies pain, SOB. Floor nurse Solo reports pt has been very pleasant with no behaviors each time he works with him. No changes to care plan.
--- NOTE | 2021-12-26 22:41 | NUR ---
PATIENT PLEASANT WALKING AROUND HER ROOM AND AT HIS DOOR LORNA PAIN
--- NOTE | 2021-12-27 00:03 | NUR ---
PATEINT A SLEEP AT THIS MOMENT NO S/S OF APIN OR DISTRESS NOTED
--- NOTE | 2021-12-27 03:45 | NUR ---
PATIENT UP ASSISTED TO THE BATHROOM COLOSTOMY CARE DONE
--- NOTE | 2021-12-27 04:37 | NUR ---
PATIENT QUEITLY ASLEEP NO ACUTE CHANGE
--- NOTE | 2021-12-27 16:00 | NUR ---
SHIFT SUMMARY PATIENT IS ALERT AND ORIENTED X1-2. PATIENT REMAINS ON COMFORT CARE MEASURES. PATIENT HAS BEEN PLEASENT AND COOPERATIVE WITH CARE. PATIENT IS INDEPENDENT IN ROOM. PATIENT HAS BEEN RESTING ON AND OFF MOST OF SHIFT. PATIENT HAS HAD NO ACUTE EVENTS THIS SHIFT. BED IS LOCKED AND IN LOWEST POSITION. CALL LIGHT IN PLACE. WILL MONITOR UNTIL SHIFT CHANGE.
--- NOTE | 2021-12-27 17:24 | NUR ---
Pt is up ambulating in room without walker or assistance. No changes needed to care plan at this time. Pt is awaiting placement.
--- NOTE | 2021-12-27 20:56 | NUR ---
PATIENT FOUND IN THE SHOWER UNASSISTED REDIRECT AND STAND BY DURING SHOWER COLOSTOMY BAG CHANGED PT C/O GENERAL PAIN 6 PRN MED ADM PER EMAR ASSISTED TO BED
--- NOTE | 2021-12-28 02:04 | NUR ---
PT A SLEEP AT THIS MOMENT DURING ROUNDS
--- NOTE | 2021-12-28 04:09 | NUR ---
SHIFT SUMMARY NO ACUTE CHANGES IN THIS SHIFT QUITLY RESTING IN BED IN S/S OF DISTRESS
--- NOTE | 2021-12-28 17:38 | NUR ---
Patient reports minimal pain through out shift. lidocain patch applied to neck as ordered. Mood is good. The only time patient became irritable is when other patients were yelling in near by rooms. Skin intact. Up to BR independently. No concerns.
--- NOTE | 2021-12-29 05:02 | NUR ---
PT DOES NOT APPEAR TO BE IN DISTRESS. PT DENIES ANY PAIN, SOB, N/V. PT CALL LIGHT IS WITHIN REACH. PT IS SLEEPING COMFORTABLY.
--- NOTE | 2021-12-30 04:17 | NUR ---
SHIFT SUMMARY 66 YR M ADMITTED ON 11/14/21. DNR. PT IS CURRENTLY ON COMFORT CARE AWAITING PLACEMENT IN A SNF. NO ACUTE CHANGES THIS SHIFT. PT HAS BEEN PLEASANT AND COOPERATIVE AND IS INDEPENDANT IN THE ROOM. HAS HAS SLEPT MOST OF THIS SHIFT.
--- NOTE | 2021-12-30 17:25 | NUR ---
END OF SHIFT SUMMARY: PATIENT REPORTED ABDOMINAL PAIN TODAY AT A 5/10. MEDICATED PER ORDERS. PATIENT REPORTED RELIEF AND DENIED NEED FOR FURTHER INTERVENTION. PATIENT REPORTED FEELING VERY DISCOURAGED TODAY ABOUT STILL BEING IN THE HOSPITAL. PROVIDED ENCOURAGEMENT AND ADDRESSED NEEDS OF THE PATIENT. RECEIVED AN EXEMPTION FOR THE PATIENT TO GO OUTSIDE MOMENTARILY WITH STAFF. PATIENT EXPRESSED APPRECIATION AND APPEARED TO HAVE AN IMPROVED MOOD. PATIENT CONTINUES TO BE INDEPENDENT IN THE ROOM. PATIENT STEADY ON FEET. PATIENT CALM AND COOPERATIVE WITH STAFF.
--- NOTE | 2021-12-30 17:53 | NUR ---
Spiritual Care Visit Pt. was lying in bed with covers over his head, but responded when I came in room. Pt. welcomed my visit. Re-established rapport. Pt. is confused at times but always pleasant. Pt. is unsettled about not being in the hospital when he doesn't feel sick. Provided a calming presence. Pt. displays evidence of engagment. Prayed for Pt. Pt. verbalized significant gratitude for the spiritual care visits. Pt. verbalized that he was telling his family about them.
--- NOTE | 2021-12-31 02:07 | NUR ---
SHIFT SUMMARY: PATIENT ON COMFORT CARE, NO COMPLAINTS OF PAIN, REQUEST TO SLEEP TONIGHT. COMPLIANT WITH MEDICATIONS. OSTOMY LEAKING, REMOVED, SKIN CLEANSED AND PREPED, NEW DEVICE APPLIED. WCTM.
--- NOTE | 2021-12-31 16:49 | NUR ---
DAY SHIFT SUMMARY 66 YR OLD MALE PT WAITING FOR PLACEMENT WITH [facility]. UP ADLIB, A/O X3, PT IS COMFORT CARE, ON RA. PT HAS OSTOMY, OSTOMY CARE PROVIDED ORDERED. MEDS PER EMAR. NO ACUTE CHANGES THIS SHIFT. SISTER VISITED AT BEDSIDE. CALL LIGHT WITHIN REACH.
--- NOTE | 2021-12-31 17:37 | NUR ---
Pt was up ambulating in his room today with walker. He is pleasantly confused. No changes needed to careplan at this time.
--- NOTE | 2022-01-01 04:48 | NUR ---
SHIFT SUMMARY: PATIENT ON COMFORT CARE, DENIES PAIN, ONE EPISODE OF AGGITATION DUE TO PATIENT OPENED OSTOMY POUCH AND STOOL SOILED HIS CLOTHING. HE GREW UPSET WITH STAFF ATTEMPTING TO CLEAN HIM YELLING LOUDLY. PATIENT ABLE TO BE REDIRECTED AND UNDERSTOOD IMPORTANCE OF REMOCING SOILED CLOTHING AND ALLOWING STAFF TO CLEANSE HIS SKIN.
--- NOTE | 2022-01-02 03:06 | NUR ---
PT HAS BEEN VOMITING FREQUENTLY SINCE EATING PIZZA THAT HIS SISTER BROUGHT HIM LAST NIGHT. PT WAS OFFERED PHENERGAN BUT REFUSED SAYING "IT DIDN'T WORK." PT REFUSING NAUSEA MEDICATION AND REFUSING MICHELLE MIST AND CRACKERS. HE CONTINUES TO HAVE CLEAR EMESIS.
--- NOTE | 2022-01-02 04:34 | NUR ---
PT VERY RESTLESS, UP AND DOWN FROM BED. HE CONTINUES TO THROW WIPES IN THE SINK AND RUN THE SINK WATER. PT AGITATED. REFUSING CARE AT THIS TIME.
--- NOTE | 2022-01-02 04:57 | NUR ---
COLORIST PHOTOGRAPHY SUMMARY PT ON COMFORT CARE AND AWAITING DC. HE HAS BEEN AGITATED AND RESTLESS THROUGHOUT THE SHIFT. PT WAS IN AND OUT OF THE SHOWER MULTIPLE TIMES, DESPITE BEING TOLD HE HAD TO LAY DOWN. HE HAS BEEN NAUSEOUS THROUGHOUT THE NIGHT AFTER EATING SOME PIZZA THAT HIS SISTER HAD BROUGHT HIM, BUT HE REFUSED ALL OFFERS FOR MEDICATION. PT HAD OPENED HIS OSTOMY IN HIS BED TO CLEAN IT, AND BECAME AGITATED WHEN STAFF WENT TO CLEAN THE BED. PT NOT VERY COOPERATIVE BUT IS REDIRECTABLE WHEN WE USE A MARKS VOICE. PT CURRENTLY LAYING DOWN AND RESTING.
--- NOTE | 2022-01-02 11:27 | NUR ---
Pt currently in the shower. Spoke with Primary RN Patsy and Catrina. Pt has been vomiting and no output for his colostomy. Roxanol and promethazine given after vomiting subsided. Palliative Care will remain available for symptom management.
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
--- NOTE | 2022-01-03 03:45 | NUR ---
PT RESTING QUIETY WITHOUT ANY ACUTE ACUTE DISTRESS
--- NOTE | 2022-01-03 03:47 | NUR ---
PT RESTING QUIETLY WITH EYES CLOSED, NO SIGNS OF DISCOMFORT
--- NOTE | 2022-01-03 03:49 | NUR ---
PT SLEEPING WITHOUT DISTRESS NOTED
--- NOTE | 2022-01-03 06:43 | NUR ---
PT RESTING QUIETLY, NO DISTRESS NOTED
--- NOTE | 2022-01-03 06:46 | NUR ---
PT RESTING QUIETLY
--- NOTE | 2022-01-03 06:48 | NUR ---
SHIFT SUMMARY PT ALERT AND PLEASANTLY CONFUSED THIS SHIFT, AMBULATES IN ROOM WITHOUT DIFFICULTY AND TOOK A SHOWER AT THE BEGINNING OF THE SHIFT, NO N/V THIS SHIFT, COLOSTOMY WITH BROWN LIQUID, DENIES NEED TO VOID THIS AM AND BLADDER SCAN SHOWED 147ML AT 0630 THIS AM, DENIES ANY PAIN AND NO ACUTE DISTRESS NOTED.
--- NOTE | 2022-01-03 09:03 | NUR ---
Case Conference Note Spoke with Primary RN Gerson and discussed case. Pt has no nausea or vomiting today. Colostomy having output. Pt currently sleeping. No new concerns at this time. Palliative Care will remain available.
--- NOTE | 2022-01-03 10:21 | NUR ---
PT WAS SLEEPING, AWOKE AND ATE BREAKFAST AT THE SIDE OF BED. CALM AND COOPERATIVE THIS AM. DENIES PAIN. NO SOB/DYSPNEA. TOLERATING FOOD AND FLUIDS.
--- NOTE | 2022-01-03 18:31 | NUR ---
SUMMARY- PT INDEPENDANT IN THE ROOM, EMPTIED OWN COLOSTOMY. WAS FULL WITH LIQ BROWN STOOL. HAD NO NAUSEA TODAY, TOLERATING FOOD AND FLUIDS. WAS CALM AND COOPERATIVE ALL DAY. MEDICATED ONCE THIS PM FOR NECK PAIN. AWAITING PLACEMENT, WILL REPORT TO GABY DUNNE.
--- NOTE | 2022-01-04 04:47 | NUR ---
SUMMARY: PT A/OX2, CONFUSED AT TIMES AND FORGETFULL W/REMINDERS REQUIRED PRN. HE'S INDEPENDENT IN ROOM AND EMPTIED OWN COLOSTOMY STATING IT WAS ABOUT 1/4 FULL. HE DENIED PAIN, NAUSEA AND ALL OTHER COMPLAINTS. SNACKS PROVIDED PER REQUEST AND PT TOLERATED PO INTAKE. HE'S BEEN PLEASANT AND COOPERATIVE THIS SHIFT AND SLEPT MOST OF NOCTE. NO ACUTE CHANGES AND COMFORT MEASURES MAINTAINED. PLACEMENT PENDING. WCTM AND REPORT TO DAY RN.
--- NOTE | 2022-01-04 18:36 | NUR ---
Pt able to shower himself again, and able to change his colostomy bag with minimal assistance. He is no longer threathening staff as he was way back when he came to the hospital. He is also feeding himself, ambulating with his walker. Waiting for placement.
--- NOTE | 2022-01-05 06:40 | NUR ---
SHIFT SUMMARY Pt rested well, no c/o pain or discomfort, pt independent in room and with repositioning. Ostomy with stoma pink/moist, small amount brown stool and flatus noted in bag, pt has been independent in emptying ostomy as needed. Comfort measures continued as ordered. Anticipate d/c when placement determined.
--- NOTE | 2022-01-05 15:50 | NUR ---
Comfort Care pt: No changes to pt's care plan needed. Pt continues waiting for placement, but due to some of the behaviors early on in his stay have made it difficult to find a facility who will accept him. He continues to ambulate in his room with walker, and is now able to change his own colostomy bag. He is pleasant and cooperative with care. He continues to suffer from occasional anxiety.
--- NOTE | 2022-01-05 16:07 | NUR ---
PATIENT RESTIN IN ROOM CALM, APPROPRIATE MOST OF THE SHIFT. MOOD IS LABILE, HOWEVER WHEN ATTEMPTING CERTAIN CARES. PATIENT REFUSED HIS LIDOCAINE PATCH THIS AM. HAS BEEN RECEPTIVE OF SNACKS FROM THE [place].COLOSTOMY DRAINING. NO NAUSEA NOTED. PATIENT HAS NO COMPLAINTS.
--- NOTE | 2022-01-06 05:11 | NUR ---
SHIFT SUMMARY Pt restless at beginning of shift, c/o abd pain and nausea, had small amount emesis. Med per mar for pain and nausea and pt reported good relief with medications and was observed to be calmer after. Soft, brown stool noted in colostomy and large amount of flatus. Pt took 5 showers this shift independently, mainly during the time where he was c/o pain and nausea. Colostomy bag changed after pt done showering. Pt would intermittently get impatient during the process of the colostomy being changed and would curse and yell out occasionally. Pt redirected easily and appeared to calm down quickly after each outburst. Comfort care measures continued per orders. Anticipate d/c when placement determined.
--- NOTE | 2022-01-06 15:57 | NUR ---
Spiritual Care Visit. Pt. is standing up in room and welcomes mt visit. Pt. displays evidence of confusion, and an increased self-awareness of his muddled memory. Pt. verbalizes his frustration over broken memories. Identified a subject the pt. enjoyed talking about in order to continue to develeop rapport. Prayed with Pt. Pt. displayed evidence of a more hopeful attitide, and verbalized gratitude for the spiritual care visit.
--- NOTE | 2022-01-06 18:09 | NUR ---
PATIENT HAS BEEN HAVING PAIN IN HIS STOMACH TODAY, WITH NO RETURN IN HIS COLOSTOMY BAG. SOME AIR PRESENT, BUT NO BM. PATIENT HAS BEEN USING ROXINAL THIS SHIFT FOR PAIN, AND ZOFRAN FOR NAUSEA. HE RECIEVED HIS LAST DOSE OF ROXINAL (10 MG) AT 1800. HE HAD ZOFRAN FOR NAUSEA WHICH WAS EFFECTIVE EARLY THIS AFTERNOON. MOOD IS GOOD ONCE THE PAIN MEDICATION RELIEVES HIS PAIN. IT WAS REPORTED THAT (SOMEONE) WAS GOING TO COME EVALUATE THIS PATIENT FOR PLACEMENT THIS WEEKEND.
--- NOTE | 2022-01-07 05:56 | NUR ---
SHIFT SUMMARY PT WAS VERY RESTLESS AT BEGINNING OF SHIFT, PACING IN THE ROOM AND OUT IN THE HALLWAY. PT NOTED TO HAVE INTERMITTENT DRY HEAVES BUT NO EMESIS. MED PER MAR FOR ANXIETY AND NAUSEA. MEDS WERE EFFECTIVE AND PT RESTED CALMLY IN BED THE REMAINDER OF SHIFT. PT WOKE SEVERAL TIMES DURING THE NIGHT AND STATED HE WAS COMFORTABLE AND JUST WANTED TO GO BACK TO SLEEP. PT INDEPENDENT IN REPOSITIONING. HEAT PAD TO BACK FOR COMFORT. NO OUTPUT NOTED IN OSTOMY. WILL CONTINUE COMFORT CARE MEASURES ORDERED.
--- NOTE | 2022-01-07 09:55 | NUR ---
PATIENT REFUSED PERSONAL CARE AND LIDOCAINE PATCH ORDERED PER EMAR.
--- NOTE | 2022-01-07 11:06 | NUR ---
PATIENT HAS BEEN RESTING. PATIENT DENIES ANY DISCOMFORT AT THIS TIME. WILL CONTINUE TO MONITOR. PATIENT BECOMES IRRITABLE IF TOO MANY PEOPLE ASK THEM QUESTIONS ABOUT CARE.
--- NOTE | 2022-01-07 12:48 | NUR ---
PATIENT STATED THEY WERE HAVING SOME PAIN IN THEIR ABDOMEN AND CHEST. MEDICATED PER EMAR. NEW OSTOMY BAG OFFERED AFTER SHOWER. PATIENT STATED THEY WANTED TO WAIT A BIT AND THAT "THEY ARE NOT AN IDIOT."
--- NOTE | 2022-01-07 14:26 | NUR ---
THIS NURSE HELPED THE PATIENT WITH PLACING THEIR OSTOMY BAG. PAIN MEDS GIVEN PER EMAR. PATIENT IS RESTING NO DISTRESS NOTED.
--- NOTE | 2022-01-07 16:01 | NUR ---
THE PATIENT DENIES ANY PAIN AT THIS TIME. THE PATIENT REQUESTED A SNACK. THEY ARE CURRENTLY EATING ICE CREAM AND PUDDING. THE PATIENT HAS BEEN OUT IN THE [place] SITTING AND VISITING. MOSTLY PLEASANT THIS SHIFT, SOME MILD AGITATION AT TIMES.
--- NOTE | 2022-01-07 18:16 | NUR ---
RESTING AND VISITING WITH FAMILY. NO PAIN OR DISCOMFORT AT THIS TIME.
--- NOTE | 2022-01-08 05:55 | NUR ---
Patient is alert and oriented to self. He is ambulatory and independent. He is confused on place and time, but is redirectable. Ostomy is in place, skin is clean dry and intact. Snacks provided. Patient complains of generalized pain, PRN pain given. Call light within reach. Snacks given.
--- NOTE | 2022-01-08 08:41 | NUR ---
PATIENT IS SLEEPING. NO DISTRESS NOTED AT THIS TIME.
--- NOTE | 2022-01-08 09:36 | NUR ---
Spiritual Care Met with brother of pt. (last evening) in the hallway as he was leaving the hospital. I know the brother personally. Re-established rapport. Let hium know I had been engaging with his brother. Pts. brother verbalized gratitude for the spiritual care and medical care his brother is receiving at [facility].
--- NOTE | 2022-01-08 10:32 | NUR ---
PATIENT DENIES ANY PAIN. WOKE UP TO EAT BREAKFAST. NOW RESTING NO DISTRESS.
--- NOTE | 2022-01-08 14:41 | NUR ---
THE PATIENT STATES THEIR PAIN IS MUCH BETTER THAN THE LAST COUPLE OF DAYS. DENIES ANY NEED FOR PHARMACOLOGICAL PAIN RELIEF. PATIENT IS IN NO DISTRESS AT THIS TIME.
--- NOTE | 2022-01-08 15:29 | NUR ---
THE PATIENT HAS BEEN OPEN TO SNACKS. STILL REFUSING ANY PAIN MEDS FOR COMFORT. THE PATIENT TOOK A WALK DOWN THE [place].
--- NOTE | 2022-01-08 17:40 | NUR ---
PATIENT SPENT SOME TIME SITTING IN THE HALLWAY VISITING. PATIENT HAS BEEN QUITE PLEASANT THIS SHIFT. THIS NURSE HELPED THE PATIENT WITH A NEW OSTOMY BAG. NOTHING FURTHER TO REPORT.
--- NOTE | 2022-01-08 18:34 | NUR ---
PATIENT DENIES AND PAIN OR DISTRESS AT THIS TIME.
--- NOTE | 2022-01-08 19:00 | NUR ---
pt stable and active.
--- NOTE | 2022-01-09 05:27 | NUR ---
Patient is alert and oriented to self only. Complains of abdominal pain, PRN pain medication given. No signs of distress. He is independent and ambulatory, steady gait. He is forgetful but is redirectable. Snacks provided. Patient took his night medications without any problem. Colostomy site is clean dry and intact. call light within reach.
--- NOTE | 2022-01-09 16:17 | NUR ---
SHIFT SUMMARY NO ACUTE CHANGES TO PRESENT THIS SHIFT. PT REMAINS ON COMFORT CARE, WAITING FOR PLACEMENT. INDEPENDENT IN RM AND OUT IN THE HALLS. MEDICATED FOR PAIN THIS AM. PT LATER C/O NAUSEA; ZOFRAN AND LATER PHENERGAN GIVEN. DENIED FURTHER NEEDS AT THIS TIME. PT ABLE TO MAKE NEEDS KNOWN.
--- NOTE | 2022-01-10 08:02 | NUR ---
COMFORT CARE PATIENT APPEARS TO BE SLEEPING COMFORTABLY. NO SIGNS OF DISTRESS.
--- NOTE | 2022-01-10 16:58 | NUR ---
COMFORT CARE PATIENT NAUSEATED. MEDICATED PER MAR
--- NOTE | 2022-01-10 18:28 | NUR ---
SHIFT SUMMARY PATIENT ALERT TO SELF ONLY. PATIENT INDEPENDENT, AMBULATES IN ROOM, STEADY GAIT. COMPLAINTS OF NAUSEA AND PAIN. MEDICATED PER MAR. PATIENT TOOK SHOWER TODAY. COLOSTOMY BAG CHANGED. NO SIGNIFICANT EVENTS. WILL CONTINUE TO MONITOR.
--- NOTE | 2022-01-11 03:55 | NUR ---
SHIFT SUMMARY COMFORT CARE PT. AOX3. FORGETFUL AT TIMES. PT REPORTS NAUSEA AT THE BEGINNING OF SHIFT DENIES VOMITING. MEDICATED WITH PHENEGRAN. PT ALSO REPORTS ABD PAIN. ROXANOL 20MG GIVEN ONCE T/O SHIFT. APPEARS TO BE HELPFUL. SLEPT MOST OF THE NIGHT. PT TOLERATING PO INTAKE. AMBULATES INDEPENDENTLY IN HIS ROOM. CALL LIGHT WITHIN REACH. WILL PROVIDE REPORT TO ONCOMING NURSE.
--- NOTE | 2022-01-11 10:00 | NUR ---
PATIET UP INDENOENDENTLY IN ROOM. PATIENT TOOK AND SHOWER AND OSTOMY CHANGED. CLOTHS AND SOCK CHANGED. PATIENT DENIES ANY PAIN OR DISCOMFORT. DENIES ANY NEEDS AT THIS TIME.
--- NOTE | 2022-01-11 14:00 | NUR ---
PATIENT REPORTS RESTLESSNESS AND FEELING ANXIOUS. HALDOL GIVEN TO TREAT.
--- NOTE | 2022-01-11 16:00 | NUR ---
PATIENT DENIES RESTING AND REPORTS ANXIETY HAS IMPROVED. DENIES ANY NEEDS AT THIS TIME. INDENPENDENT IN ROOM AND ABLE TO MAKE NEEDS KNOWN.
--- NOTE | 2022-01-11 17:06 | NUR ---
NO ACUTE CHANGES THIS SHIFT. PATIENT GIVEN HALDOL X1 TO TREAT ANXIETY WITH STATED RELIEF. DENIES ANY NEED FOR PAIN MEDICATIONS. INDEPENDENT IN ROOM. AWAITING PLACEMENT.
--- NOTE | 2022-01-11 18:01 | NUR ---
Pt is ambulating in his room without difficulty today. He denies pain. He is medically stable, and at this time the care managers are attempting to find placement for him. Palliative care will remain available.
--- NOTE | 2022-01-12 04:06 | NUR ---
SHIFT SUMMARY A/O SELF ONLY, CALM AND COOPERATIVE WITH CARE. COMFORT CARE MEASURES IN PLACE, MEDICATED WITH PRN ROXANOL FOR ABD PAIN. UP TO SHOWER AT BEGINNING OF SHIFT. NO ACUTE CHANGES AT THIS TIME. BED IN LOWEST POSITION WITH CALL LIGHT IN REACH. WILL CONTINUE TO MONITOR AND REPORT TO ONCOMING RN.
--- NOTE | 2022-01-12 08:55 | NUR ---
PATIENT SLEEPING AT THIS TIME. INDEPENDENT IN ROOM. NO S/S OF PAIN OR DISCOMFORT.
--- NOTE | 2022-01-12 10:00 | NUR ---
PATIENT C/O NAUSEA, PHERNGAN GIVEN TO TREAT. PATIENT INDEPENDENT IN ROOM AND ABLE TO DO OWN ADL'S AND SELF CARE.
--- NOTE | 2022-01-12 13:21 | NUR ---
Spoke with Primary RN Elena and discussed case. Elena reports Pt is having difficulty sleeping at night. Elena also is requesting stool softener. No other concerns reported at this time Spoke with Dr Centeno and discussed case. Placed order for Ativan 0.5mg PO Q 4 PRN, and Docusate 100mg PO BID per V/O from Dr Centeno. Palliative Care will remain available.
--- NOTE | 2022-01-12 14:00 | NUR ---
PATIENT REPORTS ABDOMINAL PAIN, ROXINOL GIVEN TO TREAT. HE IS ALSO VERY RESTLESS AND IS HAVING TROUBLE RESTING, ATIVAN ORDERED TO TREAT.
--- NOTE | 2022-01-12 16:00 | NUR ---
PATIENT SLEEPING AT THIS TIME.
--- NOTE | 2022-01-12 18:08 | NUR ---
NO ACUTE CHANGES THIS SHIFT. PATIENT STARTED ON STOOL SOFTNERS TODAY. PATIENT ABLE TO DO OWN SELF CARE. OSTOMY TO RLQ PUTING OUT LARGE AMOUNT OF HARD FORMED STOOL TODAY. ATIVAN ADDED FOR ANXIETY AND SLEEP WITH GOOD RELIEF. SKIN INTACT. ROXINOL GIVEN X1 TODAY FOR ABDOMINAL PAIN WITH STATED RELIEF. AWAITING PLACEMENT.
--- NOTE | 2022-01-13 04:32 | NUR ---
SHIFT SUMMARY ADMITTED FOR DEMENTIA. FULL CODE. PLAN IS FOR GUARDIANSHIP AND PLACEMENT IN [facility]ORY [facility]. HOLD ON PREVIOUS SHIFT. PT IS NOT INDICATING THAT SHE WANTS TO LEAVE. NIECE KIERAN IS MAKING ARRANGEMENTS AND WORKING WITH CARE MANAGEMENT. SHE IS FORGETFUL AND NEEDS FREQUENT REMINDERS, BUT SHE IS COOPERATIVE WITH CARE AND PLEASANT. DR. ATKINS IS CONSULT.
--- NOTE | 2022-01-13 04:37 | NUR ---
SHIFT SUMMARY ADMITTED FOR JAVIER - RESOLVED & FAILURE TO THRIVE. DNR CODE. NOW COMFORT CARE. COLOSTOMY IN PLACE IN RLQ. BOWEL CARE GIVEN THIS SHIFT. HEALTH CARE PROXY IS HIS SISTER KIANNA. HE IS INDEPENDENT IN ROOM. CAN BE ANXIOUS AT TIMES BUT IS EASILY REDIRECTED. COOPERATIVE WITH CARE. NO NEW CONCERNS THIS SHIFT
--- NOTE | 2022-01-13 07:17 | NUR ---
RN rocky handoff of patient care from UZAIR Leblanc Patient was in bed asleep and did not appear to be in distress
--- NOTE | 2022-01-13 10:09 | NUR ---
Patient was alert and orient, he ate 100% of his breakfast and went back to sleep. Patient denied to have his pain patch applied. He had no requests
--- NOTE | 2022-01-13 10:10 | NUR ---
Comfort Care Visit Pt resting in bed with his eyes closed. No S/S of distress at this time. Pt left undisturbed at this time. Spoke with Primary RN William. No new concerns reported at this time. Palliative Care will remain available.
--- NOTE | 2022-01-13 18:05 | NUR ---
Patient was alert and orient, he spent time resting in bed or sitting in the chair. Patient had complaints of feeling nausea and did recvd prn Phenargan and prn Zofran. He was indep with ambulating in the room and was continent of bladder. He had no behaviors this shift. Patient colostomy was emptied twice and the entire bag was changed. Cont to monitor. He is still waiting on placement
--- NOTE | 2022-01-14 06:07 | NUR ---
PM SHIFT SUMMARY PATIENT IS DNR COMFORT CARE. HE HAD NO COMPLAINTS DURING THE SHIFT. HE IS AMBULATORY AND USES THE RESTROOM WHEN NEEDED ON HIS OWN. HE HAS ATTENDS IN PLACE, WELL A COLOSTOMY, WHICH I EMPTIED DURING SHIFT. PLAN IS TO GET HIM TO A MEMORY CARE UNIT AT A FACILITY OR AND LTAC ONCE HIS DC ISSUES ARE RESOLVED. HIS SISTER IS HIS HEALTHCARE PROXY.
--- NOTE | 2022-01-14 10:30 | NUR ---
Spoke with Caremanager Zapata and Primary RN William. Pt remains placement issue but some facilities are currently considering Pt. Pt has had some nausea today. Phenegran and lorazepam given for comfort. Pt sitting on edge of bed upon arrival. Offered supportive visit and therapeutic listening. Pt reports no concerns at this time. Palliative Care will remain available.
--- NOTE | 2022-01-14 14:12 | NUR ---
Patient has been having some nausea and small emesis since this morning. RN informed the provider and did give patient prn Zofran, Phenergan, Ativan, Mylanta, and Roxanol for pain alternating. Patient just recvd Zofran and Roxanol prn at 1400 for continued pain and nausea. He is currentl resting in bed
--- NOTE | 2022-01-14 15:57 | NUR ---
Spiritual Care Visit. Pt. is awake and laying in bed. Pt. welcomes my visit. Pt. displays evidence of confusion, and can mix up elements of a conversation. Some have reported that he has been load and demanding. That has not been my experience. Pt. displays eveidence of loneliness. Previous life reviews have revealed he is interested in baseball. Family reports that he was a good player at one time. Consider matters of mars. Pt. displays evidence of becoming more serious about mars then he has for many years. Pt. becomes a little unsettled when a bout of nausea flared up. When it subsided I prayed with pt. Pt. verbalized gratitude for the spiritual care visit.
--- NOTE | 2022-01-15 06:37 | NUR ---
PM SHIFT SUMMARY PATIENT WAS CONFUSED A FEW TIMES DURING SHIFT. HE FORGOT THE RESTROOM WAS INSIDE HIS ROOM, ASKED WHERE HIS LAMP WENT AND WANTED TO KNOW WHY THE PHONE WAS PLUGGED IN. OTHER THAN THIS, HE HAD NO COMPALINTS DURING THE SHIFT. HE SLEPT MORE THIS EVENEING THAN THE PREVIOUS ONE. AM NURSE STATES SHE WILL GET MORE INFO ABOUT [facility], WHO STATES THEY WANT TO TAKE HIM IN FOR PLACEMENT.
--- NOTE | 2022-01-15 09:47 | NUR ---
Comfort Care Visit Pt resting in bed with his eyes closed. Pt appears comfortable with no S/S of distress at this time. Pt left undisturbed at this time. Palliative Care will remain available.
--- NOTE | 2022-01-16 05:19 | NUR ---
PM SHIFT SUMMARY PATIENT IS DNR COMFORT CARE. HE HAD NO COMPLAINTS OF PAIN OR NAUSEA DURING THE SHIFT. HIS SISTER IS HIS HEALTHCARE PROXY. HE IS AMBULATORY AND INDEPENDENT TO THE RESTROOM TO URINATE. HE HAS A COLOSTOMY. HE IS A&Ox1-2. PLAN IS FOR HIM TO GO TO A MEMORY CARE UNIT LT[facility] FACILITY. PER AM NURSE, [facility] IN [facility] IS READY TO ACCEPT PATIENT.HE SLEPT THE MAJORITY OF THE SHIFT.
--- NOTE | 2022-01-16 18:11 | NUR ---
SHIFT SUMMARY; PATIENT REMAINS ON COMFORT CARE. CHOLOSTOMY BAG INTACT AND STOOL PRESENT. PATIENT HAD EPISODE OF AGITATION EARLIER TODAY. THIS EVENING HE HAS PLEASANT AFFECT AND NO DISTRESS NOTED. WILL REMAIN AVAILABLE FOR THIS PATIENT FOR ANY WANTS OR NEEDS THAT COME UP PRIOR TO SHIFT CHANGE AND REPORT TO NOC SHIFT RN.
--- NOTE | 2022-01-16 20:00 | NUR ---
COMFORT CARE STATES DOES NOT HAVE ANY NEEDS AT THIS TIME. BED IN LOWEST POSITION. CALL LIGHT AND BELONGINGS WITHIN REACH.
--- NOTE | 2022-01-17 | NUR ---
COMFORT CARE IRRITABLE. ENCOURAGED TO DRAIN OSTOMY AND NOTED APPLIANCE PULLING OFF. ENCOURAGED TO CHANGE APPLIANCE. REINFORCEMENTS REQUIRED TO COMPLETE TASK. NO OTHER NEEDS AT THIS TIME. BED IN LOWEST POSITION. CALL LIGHT AND BELONGINGS WITHIN REACH.
--- NOTE | 2022-01-17 04:00 | NUR ---
COMFORT CARE APPEARS TO BE RESTING WITHOUT ANY NEEDS AT THIS TIME. BED IN LOWEST. CALL LIGHT AND BELONGINGS WITHIN REACH
--- NOTE | 2022-01-17 06:00 | NUR ---
COMFORT CARE TAKING SHOWER INDEPENDENTLY AT THIS TIME. NO ACUTE NEEDS. BELONGINGS WITHIN REACH.
--- NOTE | 2022-01-17 06:37 | NUR ---
SHIFT SUMMARY A/O, ABLE TO MAKE NEEDS KNOWN. IRRITABLE. SOMEWHAT COOPERATIVE. ENCOURAGED TO DRAIN AND CHANGE OSTOMY APPLIANCE. WITH MUCH RESISTANCE AND AGITATION APPLIANCE CHANGED. STOMA BEEFY RED IN APPEARANCE AND MOIST. SKIN SURROUNDING WELL APPROXIMATED WITHOUT ANY LESIONS OR ERYTHEMA. APPEARED TO REST MUCH OF THE NIGHT. NO ACUTE CHANGES NOTED. BED REMAINED IN LOWEST POSITION. CALL LIGHT AND BELONGINGS WITHIN REACH. REPORT TO ONCOMING RN.
[2022-01-17 17:15] LABS: Source, Urine Clean Catch
[2022-01-17 17:27] LABS: Bilirubin, Urine Neg (Neg); Blood, Urine Neg (Neg); Glucose Qualitative, Urine Neg (Neg); Ketones, Urine Neg (Neg); Leukocyte Esterase, Urine 1+ (Neg); Nitrite, Urine Neg (Neg); Protein, Urine 1+ (Neg); Specific Gravity, Urine 1.005 (1.003-1.022); Urobilinogen, Urine NORM (Normal)
[2022-01-17 17:39] LABS: Appearance, Urine Hazy (Clear); Color, Urine Amber (P-Yellow)
[2022-01-17 17:40] LABS: Bacteria Few /hpf; Mucus Light (0-Heavy); Red Blood Cells, Urine 0-2 /hpf (0-2); Squamous Epithelial Cells Rare /hpf (Few)
--- NOTE | 2022-01-17 18:29 | NUR ---
SHIFT SUMMARY; PATIENT REMOVED HIS COLOSTOMY APPARATUS THIS AM AND EMPTIED ITS CONTENTS IN THE SHOWER IN THE BATHROOM. PAITENT APPEARS TO BE MORE CONFUSED THAN YESTERDAY DAYSHIFT WHEN THIS RN HAD THIS PAITENT. HE IS ANGRY AND CUSSING AT STAFF. COMPLAINS OF ABDOMINAL PAIN AND DOES NOT WANT TO ALLOW STAFF TO CLEAN UP THE STOOL THAT WAS ON HIS ABDOMEN AND HIS LOWER EXTREMITIES. PATIENT IS RELUCTANT TO ALLOW ANYONE TO ASSIST HIM. HE IS MEDICATED THIS EVENING WITH ROXONOL 5MG PO PER FOR PAIN. URINE SPECIMEN IS SENT TO LAB AND ABDOMINAL XRAY DONE. ARE WAITING FOR STOOL SAMPLE FOR GI PANEL. WILL PASS ON TO NOC SHIFT RN.
--- NOTE | 2022-01-18 05:32 | NUR ---
SHIFT SUMMARY PATIENT ALERT AND AGITATED IN THIS SHIFT SHOWER X 6 TIMES REDIRECTED EVERY SINGLE TIME PATIENT STATED THAT HE CAN TAKE MANY SHOWERS HE WANTS STAFF EXPLAIN THAT ITS OK LONG STAFF ARE THERE WITH HIM FOR SAFETY PATIENT WAS VERY MAD USING CURSE WORDS TOWARDS STAFF REDIRECTED.NOTED DRY HIVES NAUSEA MULTIPLE TIMES ABDOMINAL SOFT NONTERDER NON DISTENDED PRN PHENEGAN ADM WITH RELIEF NO STOOL OUTPUT IN COLOSTOMY BAG IN THIS SHIFT.
[2022-01-18 12:24] LABS: Adenovirus F 40/41 Not Detected (NOT DETECT); Astrovirus Not Detected (NOT DETECT); Campylobacter Sp Not Detected (NOT DETECT); Cryptosporidium Not Detected (NOT DETECT); Cyclospora Cayetanensis Not Detected (NOT DETECT); E. Coli O157 Not Detected (NOT DETECT); Entamoeba Histolytica Not Detected (NOT DETECT); Enteroaggregative E. coli-EAEC Not Detected (NOT DETECT); Enteropathogenic E. coli-EPEC Not Detected (NOT DETECT); Enterotoxigenic E. coli-ETEC Not Detected (NOT DETECT); Giardia Lamblia Not Detected (NOT DETECT); Norovirus GI/GII Not Detected (NOT DETECT); Plesiomonas Shigelloides Not Detected (NOT DETECT); Rotavirus A Not Detected (NOT DETECT); Salmonella Sp Not Detected (NOT DETECT); Sapovirus Not Detected (NOT DETECT); Shiga Toxin-prod E. coli-STEC Not Detected (NOT DETECT); Shigella/Enteroin E. coli-EIEC Not Detected (NOT DETECT); Vibrio Cholerae Not Detected (NOT DETECT); Vibrio Sp Not Detected (NOT DETECT); Yersinia Enterocolitica Not Detected (NOT DETECT)
--- NOTE | 2022-01-18 18:30 | NUR ---
REPORT GIVEN TO RN UPON ARRIVAL PATIENT ON COMFORT CARES. PATIENT VOMITTING WITH NAUSEA. ZOFRAN GIVEN TO PATIENT FOR NAUSEA. MD ROUNDED ON PATIENT AND RECOMMENDED TUMS BID WHICH HAVE BEEN GIVEN AND PATIENT STATES HAVE NOT WORKED. MD REPORTED INCREASING SEROQUEL DOSAGE TO PATIENT DUE TO AGGITATION AND LACK OF SLEEP THIS MORNING. REPORT WILL BE GIVEN TO ONCOMING RN UPON ARRIVAL.
--- NOTE | 2022-01-19 05:05 | NUR ---
SHIFT SUMMARY PATIENT PLEASANT TODAY CALM NEW DOSE SERQUEL ADM PER EMAR PATIENT SLEPT MOST OF THE NIGHT NO NAUSEA VOICED IN THIS SHIFT DENIES ABDOMINAL PAIN .NO ACUTE CHANGE NOTED
--- NOTE | 2022-01-19 18:34 | NUR ---
PATIENT SLEEPING UPON ARRIVAL REPORT GIVEN. REPORT RECEIVED WAS THAT PATIENT SLEPT ALL NIGHT. NO GAGGING OR VOMITTING OBSERVED FROM PATIENT VS 1 DAY AGO. PATIENT ALERT AND ORIENTED AFTER BREAKFAST. NO PAIN REPORTED FROM PT AND LIDOCAIN PATCH DENIED. NO ACTUE CHANGES OBSERVED AT REPORTING TIME.
--- NOTE | 2022-01-20 04:41 | NUR ---
SHIFT SUMMARY PATIENT CONT COMFORT CARE DENIES PAIN AT THIS MOMENT NO CUTE CHANGE IN THIIS SHIFT.UNASSISTED SHOWER X1 REDIRECTED WITH POSITIVE EFFECT PT SLEPT MOST OF THE NIGHT CALM MOOD SAFETY IN PLACE WILL CONT TO MONITOR
--- NOTE | 2022-01-20 17:25 | NUR ---
Pt remains here at [facility], due to lack of placement. He is doing much better botht physically and mentally since beginning of this hospital stay. Unlikely he will discharge on hospice, as he would no longer qualify. Palliative will remain available.
--- NOTE | 2022-01-20 18:39 | NUR ---
PT ALERT, FORGETFUL AT TIMES. UP AD LIMB IN ROOM. PT HAS BEEN ABLE TO CALL STAFF TO HELP WITH HIS COLOSTOMY BAG. FAMILY STOPPED BY FOR PT'S BIRTHDAY. PT IS NOW RESTING IN BED. DENIES ANY PAIN OR COMPLAINTS. STILL WAITING ON PLACEMENT.
--- NOTE | 2022-01-21 04:35 | NUR ---
SHIFT SUMMARY PATIENT ALERT AND 0RIENTED WITH SOME FORGETFULLNESS AT TIME FOUND TAKING SHOWER UNASSISTED X2 REMOVED HIS COLOSTOMY BAG AND SPILL FEECES ON THE FLOOR PT RIDERECTED .NO ACUTE CHANGE OBSERVED IN THIS SHIFT
--- NOTE | 2022-01-21 14:57 | NUR ---
Spiritual Care visit. Pt. was sitting up and looking out window. Pt. welcomes my visit. Pt. continues to display evidence of confusion, but is pleasant in our conversation. Re-establish rapport. Sabin for pt. Pt. verbalizes gratitude for the spiritual care visit.
--- NOTE | 2022-01-21 17:44 | NUR ---
PT IS A&OX3 BUT FORGETFUL. PT KEPT PULLING OFF COLOSTOMY BAG AND JUMPING IN THE SHOWER MULTIPLE TIMES TODAY. EDUCATED PATIENT MULIPLE TIMES ABOUT USING THE CALL LIGHT TO HELP CHANGE THE COLOSTOMY, NEEDS REINFORCEMENT. WAITNG ON ETHICS CONSULT. PT IS REDIRECTABLE AND FOLLOWS COMMANDS. PT NOW RESTING IN BED. BED IN LOWEST POSITION.
--- NOTE | 2022-01-22 05:12 | NUR ---
SHIFT SUMMARY NO ACUTE CHANGE NOTED NO BEHAVIORS IN THIS SHIFT CALM MOOD OBSERVED SLEEPING THROUGH OUT THE SHIFT
--- NOTE | 2022-01-22 17:16 | NUR ---
PT A&OX3 BUT FORGETFUL. PT HAD TO BE EDUCATED AGAIN ON SHOWERING MULTIPLE TIMES A DAY AND RIPPING OFF HIS COLOSTOMY BAG AND TO CALL FOR HELP TO CHANGE IT. NEEDS REINFORCEMENT. PT UP AD LIMB IN HIS ROOM. DENIES ANY PAIN. STILL WAITING ON PLACEMENT.
--- NOTE | 2022-01-23 03:43 | NUR ---
SHIFT SUMMARY PATIENT HAD NO ACUTE CHANGES. AXOX 3 FORGETFUL. INDEPENDENT IN ROOM AND HALLWAY. TAKES MEDICATION WHOLE WITH WATER. NO IV ACCESS. COLOSTOMY INTACT. PLEASANTLY CONFUSED. DENIES PAIN, SOB, AND N/V. SLEPT SECOND PART OF SHIFT. CALL LIGHT IN REACH. BED IN LOWEST POSITION. WILL CONTINUE TO MONITOR UNTIL DAY SHIFT NURSE ASSUMES CARE.
--- NOTE | 2022-01-23 18:22 | NUR ---
PT A&OX3 BUT FORGETFUL. PT A LITTLE MORE AGITATED TODAY AND REFUSED ALL MEDS. EDUCATED PATIENT ON MEDICATIONS BUT STATED "THERE NO GOOD FOR ME". PT UP AD LIMB IN ROOM. NOW RESTING IN BED. CALL LIGHT PLACED WITHIN REACH, BED IN LOWEST POSITION. STILL WAITING ON PLACEMENT.
--- NOTE | 2022-01-24 03:26 | NUR ---
SHIFT SUMMARY PATIENT ON COMFORT CARE. HAD NO ACUTE CHANGES OBSERVED. WANDERS IN/OUT OF ROOM INTO HALLWAY FIRST FEW HOURS OF SHIFT. AXOX 2-3 WITH CONFUSION. TOOK MEDICATION WITH WATER. NO IV ACCESS. COLOSTOMY INTACT. PATIENT STAYED IN ROOM MOST OF SHIFT ONCE SETTLED IN. CALL LIGHT IN REACH. BED IN LOWEST POSITION. WILL CONTINUE TO MONITOR UNTIL DAY SHIFT NURSE ASSUMES CARE.
--- NOTE | 2022-01-24 17:08 | NUR ---
SHIFT SUMMARY PT AOX3; FORGETFUL AT TIMES. PT IS COMFORT CARE. CHANGED THE OSTOMY BAG TODAY. THIS RN EDUCATED THE PT ABOUT CHANGING THE BAG, PT STATED "I DON'T KNOW WHAT I'M DOING." AWAITS FOR PLACEMENT. DENIES ANY PAIN, AND REFUSED MOST MEDS. BED IS IN THE LOWEST POSITION AND CALL LIGHT WITHIN REACH
--- NOTE | 2022-01-24 18:47 | NUR ---
COMFORT CARE- PAIN MEDICATED THE PT FOR PAIN. PT STATED THAT HE HAS BEEN NEEDING SOMETHING FOR PAIN, AND HE FELT LIKE "SOMETHING IS PAINFUL IN HIS GUTS." PATIENT IS A COMFORT CARE PT AND NEEDS TO BE FREE FROM PAIN. ASSESSMENT FOR PAIN IS NEEDED FOR THIS PT.
--- NOTE | 2022-01-25 04:27 | NUR ---
SHIFT SUMMARY PATIENT ON COMFORT CARE. AXOX 3 WITH CONFUSION AT TIMES. INDEPENDENT IN ROOM AND HALLWAY. NO IV ACCESS. COLOSTOMY INTACT. DENIES PAIN, SOB, AND N/V. WILL INFORM STAFF WHEN HE GOES TO BED OR WALK IN [place]. TOOK MEDICATION THIS SHIFT. COOPERATIVE WITH CARE. DENIES PAIN, SOB, AND N/V. CALL LIGHT IN REACH. BED IN LOWEST POSITION. WILL CONTINUE TO MONITOR UNTIL DAY SHIFT NURSE ASSUMES CARE.
--- NOTE | 2022-01-25 10:52 | NUR ---
PATIENT HAS RANDOM BOUTS OF AGGITATION. PATIENT IS EASILY REORIENTABLE TO FOLLOW COMMANDS BACK TO ROOM. PATIENT A AND O 3X. PATIENT IS INDEPENDANT WITH CARES.
--- NOTE | 2022-01-26 04:24 | NUR ---
SHIFT SUMMARY: PATIENT ON COMFORT CARE - DENIES PAIN OR ANXIETY. COMPLAINT WITH SCHEDULED MEDICATION ADMNIATRATION. GOT FRUSTRATED WHEN ASKED TO ASSESS OSTOMY. PATIENT REFUSED AND DEMANDED STAFF LEAVE HIS ROOM. ADVISED HIM TO CALL IF HE NEEDS ANYTHING. THERE WAS NO ODOR TO SUPPORT EVIDENCE OF LEAKING, APPERARED FAIRLY FLAT AND FLUSH TO HIS BODY. WCTM.
--- NOTE | 2022-01-26 12:04 | NUR ---
PATIENT SELF CARE EXCEPT WITH OSTOMY. PATIENT RARELY ACCEPTS CARE WITH OSTOMY UNTIL ITS LEAKING OR POPPED. OSTOMY SETUP REPLACED DUE TO PATIENT REFUSAL OF EMPTYING BAG EARLIER AND DURING NIGHT. PATIENT A AND O 2X AND WALKS AND SHOWERED SELF MOSTLY INDEPENDANTLY.
--- NOTE | 2022-01-26 23:08 | NUR ---
SHIFT SUMMARY: PATIENT IS ON COMFORT CARE, DENIES PAIN, NO EVIDENCE OF ANXIETY. COMPLIANT WITH MEDICATION ADMINISTRATION. ALLOWED THIS MANAGER ACUTE TO EMPTY OSTOMY. PATIENT WANDERED OUT OF ROOM INTO NEIGHBOORS ROOM AND SAT IN CHAIR. [employer] ARCHITECT INSTRUCTED PATIENT TO RETURN TO HIS ROOM, HE BECAME ARGUMENTATIVE BUT DID COMPLY. LAYING IN BED WITH EYES CLOSED. WCTM.
--- NOTE | 2022-01-27 10:22 | NUR ---
PATIENT REMAINS UNCHANGED A AND O TO SELF AND PLACE. PATIENT WAS AGGITATED TODAY AND TRIED TO PUNCH NURSE. NURSE CAME IN 15MIN LATER AND WAS COOPERATIVE WITH OSTOMY CARE AND MEDICATIONS. PATIENT IS MORE COOPERATIVE BEFORE MEALS.
--- NOTE | 2022-01-27 18:02 | NUR ---
DR. ROBERTA SOSA NOTIFIED THAT PATIENT HAS HAD WORSENING GERD SYMPTOMS DESPITE TUMS. PROVIDER ORDERED PEPCID 20MG PO BID PRN GERD.
--- NOTE | 2022-01-28 04:33 | NUR ---
SHIFT SUMMARY: PATIENT IS ON COMFORT CARE, HE IS DRY HEAVING LOUDLY IN ROOM. NO EMESIS OCCURANCES. PRN ZOFRAN GIVEN WITH LITTLE RELIEF. PATIENT APPEARS ANXIOUS REGARDING DC TOMMORROW HE IS PACING IN HIS ROOM, SELF TALK, DRY HEAVING. UPON EXPLORING FEELINGS HE STATES "I'M NOT SURE WHAT I'M FEELING BUT IT FEELS WEIRD JUST AN UNEASY FEELING IN MY STOMCAH" WHEN ASKED IF HE FEELS NERVOUS HE SAID "YES THAT'S THE BEST WAY TO PUT IT AND I GET SICK TO MY STOMACH WHEN I FEEL THIS WAY". PATIENT TOOK A SHOWER TO CALM DOWN AND WAS ABLE TO SLEEP A FEW HOURS. HE AWOKE SPONTANEOUSLY AND BEGAN PACING/DRY HEAVING. COMPLAINED OF ABD PAIN AND HEADACHE TREATED PER EMAR, PATIENT FELL BACK ASLEEP AND HAS BEEN LAYING IN BED WITH EYES CLOSED SINCE. [facility].
--- NOTE | 2022-01-28 07:30 | NUR ---
ASSUMED CARE: PT RESTING QUIETLY AT THIS TIME. NO ACUTE NEEDS AT PRESENT
--- NOTE | 2022-01-28 08:10 | NUR ---
OFFERED PT MEDICATIONS, DECLINED AND STATED HE WANTED TO WAIT UNTIL AFTER BREAKFAST
--- NOTE | 2022-01-28 14:34 | NUR ---
Spiritual Care Visit. Pt. is sitting in a chair looking out the window. Pt. welcomes my visit. Pt. is unsettled about the pending D/C that he is expecting. Normalized th ePt. experience. Pt. displayed evidence of of reduced stress. Re-established rapport. Read Scripture to Pt. Pt. verbalized understanding, and verbalized that the words were indeed familiar. Pt. displays occassional evidence of significant confusion. Time with pt. was interrupted when he had a bout of dry heaves. Prayed with Pt. Pt. verbalized gratitude for the spiritual care visit.
--- NOTE | 2022-01-28 17:49 | NUR ---
SHIFT SUMMARY: PT MEDICATED X1 FOR NAUSEA. AMBULATORY IN ROOM. DENIES NEEDS OR CONCERNS. PLAN IS FOR DC HOME TO SISTER TOMORROW. AUTOMATED ACCESS SYSTEMS TECHNICIAN WAS AT BEDSIDE TODAY WORKING ON ORDERING PT'S OSTOMY SUPPLIES. NO FURTHER NEEDS AT THIS TIME.
--- NOTE | 2022-01-29 08:18 | NUR ---
SHIFT SUMMARY PT A/O TO PERSON AND TIME, ATTEMPTED TO REORIENT, DENIED ANY PAIN AND NO ACUTE DISTRESS NOTED THIS SHIFT. APPEARED TO HAVE RESTED WELL.CPLOSTOMY INTACT WITH NO BM .
[2022-01-29] MEDS ORDERED: ACET500 PO (13:30)
[2022-01-29] MEDS ORDERED: BENMENLOZ MT (13:31)
[2022-01-29] MEDS ORDERED: Calcium Carbon500 MG PO (13:35)
[2022-01-29] MEDS ORDERED: DOCU100 PO (13:43)
[2022-01-29] MEDS ORDERED: FAMO20 PO (13:44)
[2022-01-29] MEDS ORDERED: Norco 5-325 Ta1 EACH PO (13:47)
[2022-01-29] MEDS ORDERED: HYOSYNE0.125 MG/1 PO (13:49)
[2022-01-29] MEDS ORDERED: LIDO700A20 TOP (13:51)
[2022-01-29] MEDS ORDERED: CREON DR 12,001 EACH PO (13:52)
[2022-01-29] MEDS ORDERED: QUET200 PO (13:53)
[2022-01-29] MEDS ORDERED: ONDA4ODT MM (13:53)
[2022-01-29] MEDS ORDERED: Seroquel Xr50 MG PO (13:54)
--- NOTE | 2022-01-29 14:36 | NUR ---
DISCHARGE PT A&O X3 @ TIME OF DC. BROTHER AND SISTER @ BEDSIDE DURING DC INSTRUCTION. PT & FAMILY VERBALIZED UNDERSTANDING OF DC INSTRUCTION/PLAN. MEDS FAXED INTO [facility] ON [address] HARD SCRIPT PROVIDED IN PT DC FOLDER. PT AND BELONGINGS ESCORTED OUT VIA WC, PLAN TO GO HOME W/ HOME HOSPICE. BROTHER PROVIDING TRANSPORT TO HOME.
== END 2022-01-29 14:42 | disposition hospice, home (50) | DRG 871 ==
LOC: ER 15:14 → ERHOLD 17:50 → MEDS 17:50 → PCU 17:50 → MEDS 11-19 20:39 → ENPENDDIS 01-29 12:28 → MEDS 01-29 14:42
PROVIDERS: Emergency Medicine; Family Medicine; Hospitalist; Internal Medicine; Nurse Practitioner Acute Care; ADMIT Internal Medicine
PROC: 3E03329 Introduction of Other Anti-infective into Peripheral Vein, Percutaneous Approach (ICD-10-PCS; principal; 2021-11-14)
PROC: 0DB98ZX Excision of Duodenum, Via Natural or Artificial Opening Endoscopic, Diagnostic (ICD-10-PCS; 2021-11-15)
PROC: 0DB78ZX Excision of Stomach, Pylorus, Via Natural or Artificial Opening Endoscopic, Diagnostic (ICD-10-PCS; 2021-11-15)
DX: A41.9 Sepsis, unspecified organism (principal); R57.1 Hypovolemic shock; K29.71 Gastritis, unspecified, with bleeding; K22.11 Ulcer of esophagus with bleeding; E43 Unspecified severe protein-calorie malnutrition; Z66 Do not resuscitate; Z51.5 Encounter for palliative care; G93.41 Metabolic encephalopathy; N17.9 Acute kidney failure, unspecified; K86.1 Other chronic pancreatitis; E87.1 Hypo-osmolality and hyponatremia; E87.2 Acidosis; F10.27 Alcohol dependence with alcohol-induced persisting dementia; F03.91 Unspecified dementia, unspecified severity, with behavioral disturbance; Z20.822 Contact with and (suspected) exposure to COVID-19; Z78.1 Physical restraint status; R65.20 Severe sepsis without septic shock; E83.39 Other disorders of phosphorus metabolism; E83.42 Hypomagnesemia; R11.2 Nausea with vomiting, unspecified; R62.7 Adult failure to thrive; R00.0 Tachycardia, unspecified; Z93.3 Colostomy status; F41.9 Anxiety disorder, unspecified; R41.89 Other symptoms and signs involving cognitive functions and awareness; M10.9 Gout, unspecified; R10.9 Unspecified abdominal pain; M47.812 Spondylosis without myelopathy or radiculopathy, cervical region; E87.6 Hypokalemia; Z68.20 Body mass index [BMI] 20.0-20.9, adult; E86.0 Dehydration; I10 Essential (primary) hypertension; Z96.651 Presence of right artificial knee joint; Z88.5 Allergy status to narcotic agent; Z88.8 Allergy status to other drugs, medicaments and biological substances; Z79.899 Other long term (current) drug therapy; Z90.49 Acquired absence of other specified parts of digestive tract
CPT/HCPCS: 0097U; 0241U; 36415; 51702; 71045; 74018; 74176; 80048; 80053; 80069; 81001; 82550; 82553; 82803; 82941; 82947; 83605; 83690; 83735; 84100; 84132; 84145; 84550; 85014; 85018; 85025; 87040; 87086; 88305; 88342; 92610; 93005; 93010; 94762; 96374-59; 96375-59; 97116; 97161; 97165; 97530; 99285-25; A9270; C1751; C9113; J0696; J1200; J1630; J2060; J2405; J2543; J2704; J2765; J3010; J3475; J3480; J7030; J7040; J7050; J7060; J7120

== ENCOUNTER 2022-02-02 03:59 | Emergency (ER) | payer MEDICARE, OTHER ==
[~2022-02-02] VITALS: Ht 175.3 cm; Wt 62.1 kg
[~2022-02-02 03:59] MED LIST changes: +ACET500 PO; +BENMENLOZ MT; +Calcium Carbon500 MG PO; +DOCU100 PO; +DULO30 PO; +FAMO20 PO; +HYOSYNE0.125 MG/1 PO; +LIDO700A20 TOP; +METO50ER PO; +Norco 5-325 Ta1 EACH PO; +QUET200 PO; +SERT100 PO; +ZOLP5 PO
[2022-02-02] MEDS ORDERED: PROM12.5S PR (06:02)
[2022-02-02] MEDS ORDERED: OXAYDO5 M1 PO (06:03)
== END 2022-02-02 06:26 | disposition home or self-care (01) ==
LOC: ER 03:59
DX: K86.1 Other chronic pancreatitis (principal); K22.10 Ulcer of esophagus without bleeding; K26.9 Duodenal ulcer, unspecified as acute or chronic, without hemorrhage or perforation; I10 Essential (primary) hypertension; F17.210 Nicotine dependence, cigarettes, uncomplicated; Z88.5 Allergy status to narcotic agent; Z91.048 Other nonmedicinal substance allergy status; Z79.899 Other long term (current) drug therapy
CPT/HCPCS: 96372; 96374; 96375; 99283-25; A9270; J1170; J1790; J2550